=== PATIENT | female | born 1950 | race Caucasian/White ===

== ENCOUNTER 2020-01-10 11:29 | Outpatient (CLI) | payer MEDICARE, SELFPAY ==
--- NOTE | ~2020-01-10 | XR_ITS ---
XR lumbar spine 2-3V DATE: 01/10/2020 11:51 INDICATION: Chronic back pain. Radiculopathy. TECHNIQUE: AP, lateral, coned lateral lumbosacral views COMPARISON: 08/09/2017 lumbar spine FINDINGS: Diffuse osteopenia. Mild dextro scoliosis of the lumbar spine. No fracture or bone destruction of the lumbar spine is evident. The lumbar and included lower thoraci c pedicles are intact. There is severe degenerative disc disease at L5-S1. There is minimal anterolisthesis at L3-4; degenerative change at the apophyseal joints of the lumbar and lumbosacral spine. Sacroiliac joints are intact. Postoperative changes of left and right upper quadrants of the abdomen IMPRESSION: Osteopenia Severe degenerative disc disease at L5-S1 Degenerative changes at the apophyseal joints with minimal grade 1 anterolisthesis at L3-4 Reviewed, dictated and finalized at location A. IMPRESSION: Osteopenia Severe degenerative disc disease at L5-S1 Degenerative changes at the apophyseal joints with minimal grade 1 anterolisthe sis at L3-4
--- NOTE | ~2020-01-10 | XR_ITS ---
XR cervical spine 4-5V 01/10/2020 11:51 Indication: Cervical radiculopathy. Chronic neck pain. Procedure: 4 view cervical spine Comparison: 08/09/2017 Findings: There is mild disc narrowing at C5-6. No prevertebral soft tissue swelling. There is mild-m oderate multilevel uncinate and facet hypertrophy. Lung apices are normal. Odontoid process within no rmal limits. Impression: 1: Stable mild-moderate cervical spondylosis. Reviewed, dictated and finalized at location A. Impression: 1: Stable mild-moderate cervical spondylosis.
== END 2020-01-10 11:30 ==
PROVIDERS: PCP Internal Medicine; Visit Provider Pain Medicine Interventional Pain Medicine
DX: E66.9 Obesity, unspecified (principal); F17.210 Nicotine dependence, cigarettes, uncomplicated; B02.23 Postherpetic polyneuropathy; Z13.89 Encounter for screening for other disorder; Z79.891 Long term (current) use of opiate analgesic; M47.22 Other spondylosis with radiculopathy, cervical region; M51.36 Other intervertebral disc degeneration, lumbar region; M51.37 Other intervertebral disc degeneration, lumbosacral region; M85.88 Other specified disorders of bone density and structure, other site
CPT/HCPCS: 72050; 72100

== ENCOUNTER 2020-07-23 14:32 | Outpatient (CLI) | payer MEDICARE, SELFPAY ==
--- NOTE | ~2020-07-23 | XR_ITS ---
EXAMINATION: XR chest 2V 07/23/2020 15:52 INDICATION: Personal history of nicotine dependence PROCEDURE: 2 view chest COMPARISON: 04/26/2019 FINDINGS: The lungs are clear. Calcified granuloma right mid thorax. The cardiomediastinal silhouette is within normal limits. There are no pleural effusions. There is no pneumothorax suspected. IMPRESSION: 1: NO ACUTE CARDIOPULMONARY DISEASE. Reviewed, dictated and finalized at location A.
--- NOTE | 2020-07-23 14:43 | ECHO_ITS ---
Patient Info Name: Felicity Dunbar Age: 69 years : 1950 Gender: Female Ht: 67 in Wt: 221 lbs BSA: 2.22 m2 HR: 55 bpm BP: 133 / 84 mmHg Heart Rhythm: Sinus Rhythm Technical Quality: Good Exam Date: 07/23/2020 3:00 PM Exam Location: [facility] Pulmonary Patient Status: Outpatient Admit Date: 07/23/2020 Staff Ordering Physician: Indu Wilson NP-Seth Barrel Marker: Michael Crowe RDCS Attending Provider: Vahid Soria DO Referring Physician: Steve SMITH; Exam Type: CA echo doppler color flow Study Info Indications R60.9 - Edema, unspecified Complete two-dimensional, color flow and Doppler transthoracic echocardiogram is performed. Strain analysis performed. History/Risk Factors Edema. Summary 1. Complete two-dimensional, color flow and Doppler transthoracic echocardiogram is performed. 2. Strain analysis performed. 3. Left ventricular chamber dimension is normal. 4. Left ventricular systolic function is normal, estimated at 60-65%. 5. There is mildly increased left ventricular wall thickness. 6. Left ventricular septal wall motion is normal. 7. The left ventricular diastolic function is abnormal. 8. Global longitudinal strain is borderlinel at -17 %. 9. Right ventricular chamber dimension is mildly enlarged. 10. Left atrial chamber dimension is mildly enlarged. 11. Right atrial chamber dimension is moderately enlarged. 12. There is mild mitral valve regurgitation. 13. There is mild tricuspid valve regurgitation. 14. Mild pulmonary hypertension, estimated pulmonary arterial systolic pressure is 40 mmHg. Left Ventricle Left ventricular chamber dimension is normal. Left ventricular systolic function is normal, estimated at 60-65%. There is mildly increased left ventricular wall thickness. Left ventricular septal wall motion is normal. The left ventricular diastolic function is abnormal. Global longitudinal strain is borderlinel at -17 %. Right Ventricle Right ventricular chamber dimension is mildly enlarged. Right ventricular systolic function is normal. Left Atria Left atrial chamber dimension is mildly enlarged. Right Atria Right atrial chamber dimension is moderately enlarged. Atrial Septum Intact interatrial septum visualized by color flow imaging. Aortic Valve The aortic valve is trileaflet. There is mild aortic valve sclerosis. There is no aortic valve stenosis. There is trace aortic valve regurgitation. Pulmonic Valve The pulmonic valve is normal. There is no pulmonic valve stenosis. There is trace pulmonic regurgitation. Mitral Valve The mitral valve has calcified annulus. There is no mitral valve stenosis. There is mild mitral valve regurgitation. Tricuspid Valve The tricuspid valve leaflets are normal. There is no significant tricuspid valve stenosis. There is mild tricuspid valve regurgitation. Mild pulmonary hypertension, estimated pulmonary arterial systolic pressure is 40 mmHg. Pericardium/Pleural The pericardium appears normal. There is no pericardial effusion. Inferior Vena Cava Normal inferior vena cava with <50% collapse upon inspiration consistent with elevated right atrial pressure, 10 mmHg. Aorta The aortic root size at the sinus of Valsalva is normal. The prox ascending aorta size is normal. Left Ventricular Outflow Tract Name Value Normal -
== END 2020-07-23 14:33 | disposition home or self-care (01) ==
PROVIDERS: PCP Internal Medicine; Referring Provider Nurse Practitioner; Visit Provider Internal Medicine
DX: R60.9 Edema, unspecified (principal); Z87.891 Personal history of nicotine dependence; I08.3 Combined rheumatic disorders of mitral, aortic and tricuspid valves
CPT/HCPCS: 71046; 93306

== ENCOUNTER 2020-08-26 12:52 | Outpatient (CLI) | payer MEDICARE, SELFPAY ==
--- NOTE | ~2020-08-26 | XR_ITS ---
XR thoracic spine 3V 08/26/2020 13:44 Indication: Radiculopathy. Chronic back pain. Procedure: 3 views thoracic spine Comparison: 08/12/2018 Findings: There is accentuated thoracic kyphosis. Osteopenia. No acute fracture or traumatic malalign ment. There is mild-moderate thoracic spondylosis characterized by loss of disc height. Small ventral osteophytes noted at multiple levels. There are surgical changes in the epigastric region. There is atherosclerosis. There is evidence for chronic granulomatous disease. Impression: 1: Stable mild-moderate thoracic spondylosis. Reviewed, dictated and finalized at location A. Impression: 1: Stable mild-moderate thoracic spondylosis.
== END 2020-08-26 12:53 ==
PROVIDERS: PCP Internal Medicine; Visit Provider Pain Medicine Interventional Pain Medicine
DX: M54.15 Radiculopathy, thoracolumbar region (principal); M54.17 Radiculopathy, lumbosacral region; G89.4 Chronic pain syndrome; M47.894 Other spondylosis, thoracic region
CPT/HCPCS: 72072

== ENCOUNTER → 2021-01-09 13:28 | Outpatient (CLI) | payer MEDICARE, SELFPAY ==
--- NOTE | ~2021-01-09 | MR_ITS ---
EXAMINATION: MR lumbar spine wo [facility] EXAM DATE: 01/09/2021 14:14 INDICATION: Chronic pain syndrome, radiculopathy lumbosacral region chronic pain syndrome. TECHNIQUE: Multi-sequential, multiplanar MR images of the lumbar spine were obtained without contrast . Sagittal T1, T2, T2 fat saturation images. Axial T2 weighted images. There is no prior study for comparison. FINDINGS: There is mild lumbar dextroscoliosis. Moderate disc disease L5-S1, mild at the other lumbar levels. There is 3 mm retrolisthesis L5 on S1. The vertebral bodies are otherwise aligned. The conus medullaris terminates at the L1/2 level and has normal signal intensity and morphology. There are n o suspicious marrow signal abnormalities. Paraspinal soft tissue is unremarkable. Level by level evaluation: T12-L1: Disc does not extend beyond the endplate margin. Facet arthropathy: Mild. Neural foraminal stenosis: No stenosis. Central canal stenosis: No stenosis. L1-L2: Disc does not extend beyond the endplate margin. Facet arthropathy: Mild. Neural foraminal stenosis: No stenosis. Central canal stenosis: No stenosis. L2-L3: There is a mild diffuse disc bulge. Facet arthropathy: Mild to moderate. Neural foraminal stenosis: Mild right. Central canal stenosis: Mild. L3-L4: There is a mild to moderate diffuse disc bulge. Facet arthropathy: Moderate . Ligamentum flavum enlargement. Neural foraminal stenosis: Mild bilateral. Central canal stenosis: Mild to moderate. L4-L5: There is a moderate diffuse disc bulge. Facet arthropathy: Mild to moderate. Neural foraminal stenosis: Mild to moderate bilateral. Central canal stenosis: Mild to moderate. L5-S1: There is a moderate diffuse disc bulge. Facet arthropathy: Mild to moderate. Neural foraminal stenosis: Mild to moderate right, mild left. Central canal stenosis: Mild. IMPRESSION: 1. L5-S1 grade 1 retrolisthesis, moderate disc disease. 2. Otherwise mild to moderate spondylosis as above. Reviewed, dictated and finalized at location B. BUILDER APPRENTICE
== END ==
PROVIDERS: PCP Internal Medicine; Visit Provider Pain Medicine Interventional Pain Medicine
DX: G89.4 Chronic pain syndrome (principal); M47.27 Other spondylosis with radiculopathy, lumbosacral region
CPT/HCPCS: 72148

== ENCOUNTER → 2021-03-10 15:05 | Outpatient (CLI) | payer MEDICARE, SELFPAY ==
--- NOTE | ~2021-03-10 | XR_ITS ---
EXAMINATION: XR lumbar spine 2-3V DATE: 03/10/2021 15:25 INDICATION: Chronic low back pain. TECHNIQUE: 3 views of lumbar spine were obtained. COMPARISON: Lumbar spine radiograph 01/10/2020, MRI 01/09/2021 FINDINGS: There is 8 degrees dextrocurvature of lumbar spine. There is 3 mm retrolisthesis of L5 on S 1. Vertebral body heights are normal. There is severely decreased disc height at L5-S1. There is mult ilevel moderate to severe facet joint osteoarthritis. There are surgical clips in the abdomen. IMPRESSION: 1. Severe lumbar spondylosis. Reviewed, dictated and finalized at location B.
== END ==
DX: G89.4 Chronic pain syndrome (principal); M54.17 Radiculopathy, lumbosacral region; M47.896 Other spondylosis, lumbar region
CPT/HCPCS: 72100

== ENCOUNTER 2021-03-20 15:38 | Emergency (ER) | payer MEDICARE, SELFPAY ==
[2021-03-20 16:09] VITALS: BP 145/99; PULSE 89; RESP 19; TEMP 37.2; O2SAT 98
[2021-03-20 16:43] VITALS: BP 138/97; PULSE 85; RESP 22; O2SAT 96
--- NOTE | 2021-03-20 17:08 | PC.NURSE ---
1703-Pt at Intake desk stating I'm going to call my and have him come pick me up,I can't sit up in this chair any longer. pt wheeled self out of ED in wheel chair without difficulty.
== END 2021-03-20 17:08 | disposition left against medical advice (07) ==
PROVIDERS: PCP Internal Medicine
DX: M25.551 Pain in right hip (principal)
CPT/HCPCS: 99199

== ENCOUNTER 2021-03-21 14:34 | Outpatient (CLI) | payer MEDICARE, SELFPAY ==
--- NOTE | ~2021-03-21 | CT_ITS ---
EXAMINATION: CT pelvis wo con DATE: 03/21/2021 14:58 INDICATION: Low back pain TECHNIQUE: Computed tomography (CT) of the pelvis was performed without intravenous contrast. The dos e-length product (DLP) was 810.89 mGy-cm. Automated exposure control and iterative reconstruction jay hnique were employed. COMPARISON: None FINDINGS: There is moderate to severe spondylosis at L5-S1. There are no pathologically enlarged pelv ic lymph nodes. A bowel surgical anastomosis is noted in the left lower quadrant. There are no dilate d loops of bowel. No free intraperitoneal gas is identified. The appendix is normal. There are phlebo liths in the pelvis. IMPRESSION: 1. Moderate to severe spondylosis at L5-S1 without additional CT correlate for patient's symptoms. Reviewed, dictated and finalized at location A.
--- NOTE | ~2021-03-21 | CT_ITS ---
EXAMINATION: CT lumbar spine wo con EXAM DATE: 03/21/2021 14:58 INDICATION: Low back pain. TECHNIQUE: Spiral CT of the lumbar spine was performed without contrast. Axial, coronal and sagittal images lumbar spine were reviewed. The dose-length product (DLP) for this examination was 1211.02 m Gy-cm. The exposure was tailored according to patient size (auto mA exposure control), and iterativ e reconstruction (ASIR) was used as additional dose reduction technique. Correlation is made to MR adelita anna spine 01/09/2021. FINDINGS: Mild lumbar dextroscoliosis. There are no acute fractures identified. Gastroesophageal surg ical changes and cholecystectomy clips. There is moderate to severe loss of the L5-S1 disc height. Mi ld disc disease at the other levels. No spondylolysis. There is 2 mm retrolisthesis L5 on S1. The tushar tebral bodies are otherwise aligned in the AP dimension. Vertebral body heights are maintained. Level by level evaluation: T12-L1: There is a mild diffuse disc bulge. Facet arthropathy: None. Neural foraminal stenosis: No stenosis. Central canal stenosis: No stenosis. L1-L2: There is a mild diffuse disc bulge. Facet arthropathy: Mild. Neural foraminal stenosis: No stenosis. Central canal stenosis: No stenosis. L2-L3: There is a mild to moderate diffuse disc bulge. Facet arthropathy: Mild to moderate. Neural foraminal stenosis: Mild right. Central canal stenosis: Mild. L3-L4: There is a mild to moderate diffuse disc bulge. Facet arthropathy: Moderate . Ligamentum flavum enlargement. Neural foraminal stenosis: Mild bilateral. Central canal stenosis: Mild to moderate. L4-L5: There is a moderate diffuse disc bulge. Facet arthropathy: Mild to moderate. Neural foraminal stenosis: Mild bilateral. Central canal stenosis: Mild to moderate. L5-S1: There is a moderate diffuse disc bulge. Facet arthropathy: Mild to moderate. Neural foraminal stenosis: Mild right. Central canal stenosis: Mild. IMPRESSION: 1. L5-S1 moderate to severe disc disease, 2 mm retrolisthesis. 2. Otherwise overall mild to moderate lumbar spondylosis. 3. No acute findings. Reviewed, dictated and finalized at location A.
== END 2021-03-21 14:35 | disposition home or self-care (01) ==
PROVIDERS: PCP Internal Medicine; Referring Provider Pain Medicine Interventional Pain Medicine
DX: M47.896 Other spondylosis, lumbar region (principal); M51.36 Other intervertebral disc degeneration, lumbar region
CPT/HCPCS: 72131; 72192

== ENCOUNTER 2021-03-23 09:37 | Emergency (ER) | payer MEDICARE, SELFPAY ==
[2021-03-23 09:21] VITALS: BP 155/72; PULSE 85; RESP 20; TEMP 36.9; O2SAT 97
--- NOTE | 2021-03-23 09:45 | PC.NURSE ---
Arrives via EMS, c/o worsening R side sciatic pain, has been taking [place] 7.5mg but they don't help , denies new trauma or falls. Follows pain specialist and will have MRI scheduled by PCP
[2021-03-23] MEDS: diazePAM INJ (*CRX) 10 MG/2 ML SYRINGE 2.5 MG IV PUSH (10:55)
[2021-03-23] MEDS: SODIUM CHLORIDE 0.9% IV 1,000 ML 999 ML IV CONT (10:55)
[2021-03-23] MEDS: MORPHINE SULFATE (*CRX) 4 MG/ML INJ IV PUSH (10:56)
[2021-03-23 11:03] LABS: Basophils Absolute Auto 0.1 K/mm3 (0.0-0.1); Basophils Percent Auto 0.9 % (0.2-1.2); Eosinophils Absolute Auto 0.1 K/mm3 (0-0.3); Eosinophils Percent Auto 1.9 % (0-4.4); Hematocrit 43.4 % (37.0-47.0); Hemoglobin 14.4 g/dL (12.0-15.0); Immature Granulocyte Absolute 0.01 K/mm3 (0.00-0.031); Immature Granulocyte Percent A 0.1 % (0-0.5); Lymphocytes Absolute Auto 2.09 K/mm3 (0.9-3.2); Lymphocytes Percent Auto 30.4 % (18.3-44.2); Mean Corpuscular HGB Conc 33.2 g/dl (32-36); Mean Corpuscular Hemoglobin 32.7 pg (26-34); Mean Corpuscular Volume 98.6 fl (80-100); Mean Platelet Volume 11.3 fl (7.4-10.4); Monocytes Absolute Auto 0.8 K/mm3 (0.1-0.6); Monocytes Percent Auto 11.9 % (2.6-8.5); Neutrophils Absolute Auto 3.8 K/mm3 (1.3-6.7); Neutrophils Percent Auto 54.8 % (45.5-73.1); Platelet Count Result 206 k/mm3 (150-375); Red Cell Distribution Width 13.7 % (11.5-14.5); White Blood Count 6.9 K/mm3 (4.5-10.0)
--- NOTE | 2021-03-23 11:08 | ED.GENADULT ---
HPI - General Adult General Chief complaint: Back Pain/Injury Stated complaint: back pain Time Seen by Provider: 03/23/21 10:22 Source: patient, family, RN notes reviewed and old records reviewed Mode of arrival: ambulatory Limitations: no limitations History of Present Illness HPI narrative: Patient is a 70-year-old female who presents per private vehicle for evaluation of severe low back pain noting pain over the SI region that radiates down the leg had seen neurosurgery at [place] prior week had MRI done at [facility] and also has CT of the abdomen and pelvis. Patient also has seen pain management and is taking hydrocodone Percocet muscle relaxers antianxiolytics and had a nerve block none of which are helping. Patient notes that the pain is severe in nature nothing is made it better and has worsened over the course of the last 2 months. Patient denies injury or trauma. Patient denies any recent illness bladder or bowel incontinence or retention or any loss of feeling or function in the extremities. Patient notes a sharp burning pain from the right buttock down into the right foot Related Data Home Medications Medication Instructions Recorded Confirmed dicyclomine 20 mg tablet 20 mg PO QID 09/22/19 10/11/20 hydrocodone 7.5 mg-acetaminophen 1 tablet PO Q8H PRN 09/22/19 10/11/20 325 mg tablet meloxicam 15 mg tablet 15 mg PO DAILY 04/02/20 10/11/20 biotin 5 mg capsule 5 mg PO DAILY 06/26/20 10/11/20 calcium carbonate 215 mg calcium 215 mg PO QID 06/26/20 10/11/20 (500 mg) chewable tablet multivitamin 1 cap PO DAILY 06/26/20 10/11/20 Allergies Allergy/AdvReac Type Severity Reaction Status Date / Time No Known Allergies Allergy Unverified 03/23/21 09:28 Review of Systems Review of Systems: All systems reviewed & are unremarkable except as noted in HPI and below PMFSH Past Medical History Medical History (Updated 03/23/21 @ 13:00 by Michael Kendall PA-C) Chronic back pain Screening for osteoporosis Surgical History Surgical History History of bariatric surgery Family History Family History Sibling Cerebrovascular accident Patient's brother is Acute myocardial infarction Mother Carcinoma of colon Patient's mother is Father Family history of lung cancer Patient's father is Other Depression Family history of arthritis Family history of malignant neoplasm Hypertension Social History Social History Smoking status: Current every day smoker Alcohol intake: never Exam Narrative: Exam Narrative: GENERAL: Well-appearing, obese, uncomfortable and in no acute distress. HEAD: Normocephalic, atraumatic. EYES: PERRLA and EOMI. ENT: Nares clear, no rhinorrhea or epistaxis. Mucous membranes moist. NECK: Supple. No adenopathy or masses. CHEST: Clear to auscultation. No respiratory distress. No wheezes rales or rhonchi HEART: Regular rate and rhythm. No murmur heard. Normal peripheral pulses. ABDOMEN: Soft, nontender, nondistended EXTREMITIES: Normal range of motion. No edema. No midline lumbar tenderness tenderness over the right SI region no rash or deformities SKIN: Warm, dry, no rash. NEURO: No focal deficits. Alert and oriented x3. Motor and sensory intact and symmetrical in the extremity. Cranial nerves II through XII grossly intact PSYCH: Normal mood and affect. Course Course Emergency Course: Patient was medicated with improvement will be discharged with follow-up with neurosurgery pain management and primary care as planned patient sees her primary care on Wednesday. Patient without any high risk changes in her evaluation her MRI and CT imaging were reviewed. Patient will follow with her specialist and primary care ABCs and vital signs intact and stable Consultations Consultation #
--- NOTE | 2021-03-23 11:11 | PC.NURSE ---
Pt ambulated to BR using walker, slow gait, pt crying and stating my right leg is locking up . Safely assisted back to cart
[2021-03-23 11:23] LABS: Add Urine Microscopic? NO; Appearance Urine Clear (Clear); Bilirubin Urine Negative (Negative); Blood Urine Negative (Negative); Color Urine Yellow (Yellow); Glucose Urine UA Negative (Negative); Ketones Urine Negative (Negative); Leukocyte Esterase Ur Negative LEU/UL (Negative); Nitrate Urine Negative (Negative); Protein Urine Negative (Negative); Specific Grav Ur 1.008 (1.001-1.035); Urobilinogen Urine Negative mg/dL (<2.0)
[2021-03-23] MEDS: LIDOCAINE 5% PATCH 1 PATCH TRANSDERM (11:47)
[2021-03-23] MEDS: DEXAMETHASONE SOD PHOS INJ 4 MG/ML VIAL 10 MG IV PUSH (11:47)
[2021-03-23 11:50] VITALS: BP 137/77; PULSE 79; RESP 20; O2SAT 99
[2021-03-23 11:50] LABS: Erythrocyte Sedimentation Rate 18 mm/hr (0-20)
[2021-03-23 11:56] LABS: Alanine Aminotransferase 13 U/L (4-35); Albumin Level 3.8 g/dL (3.5-5.1); Alkaline Phosphatase 88 U/L (38-126); Anion Gap 5 mmol/L (8-16); Aspartate Amino Transferase 26 U/L (14-36); Bilirubin,Total 0.4 mg/dL (0.2-1.3); Blood Urea Nitrogen 17 mg/dL (7-17); CRP 0.9 mg/dL (<1.0); Calcium 8.9 mg/dL (8.4-10.2); Carbon Dioxide 27 mmol/L (22-30); Chloride 109 mmol/L (98-107); Estimated CRCL calculation 88 ml/min; Estimated Glomerular Filt Rate > 60; Glucose 98 mg/dL (65-105); Potassium 3.8 mmol/L (3.4-5.0); Sodium 141 mmol/L (137-145)
--- NOTE | 2021-03-23 12:00 | PC.NURSE ---
Pt resting on cart lying on left side, calm, no longer crying, non-labored respirations
--- NOTE | 2021-03-23 12:50 | PC.NURSE ---
ED PA at bedside for reassessment. Pt has been asleep, non-labored respirations
[2021-03-23 13:14] VITALS: BP 156/68; PULSE 65; RESP 20; O2SAT 98
== END 2021-03-23 13:24 | disposition home or self-care (01) ==
PROVIDERS: Emergency Medicine Emergency Medical Services; Emergency Provider Emergency Medicine; PCP Internal Medicine
DX: M54.5 Low back pain (principal); G89.29 Other chronic pain; Z98.84 Bariatric surgery status; F17.200 Nicotine dependence, unspecified, uncomplicated
CPT/HCPCS: 36415; 80053; 81003; 85025; 85652; 86140; 96361; 96374; 96375; 99284; A9270; J1100; J2270; J3360; J7030

== ENCOUNTER 2021-08-02 08:41 | Outpatient (CLI) | payer MEDICARE, SELFPAY ==
--- NOTE | ~2021-08-02 | US_ITS ---
US abdomen complete EXAMINATION: US Abdomen Complete INDICATION: Left-sided abdominal pain PROCEDURE: Realtime High Resolution abdomen ultrasound. COMPARISON: No prior studies for comparison FINDINGS: Gallbladder is surgically absent. Common bile duct measures 3 mm. Liver echotexture is increased, consistent with fatty infiltration.. Pancreas within normal limits. Pancreatic tail is obscured by bowel gas. Spleen is unremarkeable. Renal echotexture is within norm al limits bilaterally without hydronephrosis, contour deforming mass or renal stone. Right kidney austin sures 10.1 cm. Left kidney measures 9.4 cm. Visualized aspects of the aorta and IVC are within normal limits. Portal vein is patent. No sonograph ic Bailey's sign indicated by the technologist. IMPRESSION: 1: Hepatic steatosis. Reviewed, dictated and finalized at location A. IMPRESSION: 1: Hepatic steatosis.
--- NOTE | ~2021-08-02 | US_ITS ---
EXAMINATION: US carotid duplex BI DATE: 08/02/2021 09:42 INDICATION: Dizziness TECHNIQUE: Grayscale, color Doppler, and pulsed Doppler images of the cervical carotid arteries were obtained. The degree of vessel stenosis is placed in one of the following categories: normal, <50%, 5 0-69%, >=70% but less than near-occlusion, near-occlusion, or total occlusion. Note that percent sten osis relative to normal distal artery lumen diameter is indirectly measured from velocity measurement s as described by Ayan, et al. Radiology 2003; 229:340-346. Notes: Normal: Peak systolic velocity <125 centimeters/sec and no plaque <50%. Peak systolic velocity <125 ( EDV <40; ICA/CCA PSV ratio <2.0; used these factors only a tandem lesions or low cardiac output or co ntralateral disease) 50-69 %: PSV 125-230 (EDV 40-100; ratio 2-4) >= 70% but less than near occlusion: PSV greater than 230 (EDV > 100; ratio> 4.0) Near Occlusion: PSV that is variable; markedly narrowed lumen Occlusion: Absent flow on color/spectral Doppler and no lumen on gordon scale. COMPARISON: None. FINDINGS: RIGHT: The right common carotid artery (CCA) peak systolic velocity (PSV) is 93 cm/s. The right internal car otid artery (ICA) PSV is 114 cm/s. The right ICA end-diastolic velocity (EDV) is 40 cm/s. The right I CA/CCA PSV ratio is 1.2. The external carotid artery (ECA) PSV is 95 cm/s. There is antegrade flow in the right vertebral artery. LEFT: The left CCA PSV is 79 cm/s. The left ICA PSV is 29 cm/s. The left ICA EDV is 49 cm/s. The left ICA/C CA PSV ratio is 1.6. The ECA PSV is 93 cm/s. There is antegrade flow in the left vertebral artery. IMPRESSION: 1. Less than 50% stenosis in the right internal carotid artery by sonographic criteria. 2. 50-69% stenosis in the left internal carotid artery by sonographic criteria. Reviewed, dictated and finalized at location A. IMPRESSION: 1. Less than 50% stenosis in the right internal carotid artery by sonographic c liameria. 2. 50-69% stenosis in the left internal carotid artery by sonographic criteria.
== END 2021-08-02 08:42 | disposition home or self-care (01) ==
LOC: ANHIMG 08:43
PROVIDERS: PCP Internal Medicine; Visit Provider Internal Medicine
DX: K76.0 Fatty (change of) liver, not elsewhere classified (principal); I65.23 Occlusion and stenosis of bilateral carotid arteries
CPT/HCPCS: 76700; 93880

== ENCOUNTER 2021-11-25 00:28 | Day surgery (SDC) | payer MEDICARE, SELFPAY ==
[2021-11-14 13:54] VITALS: BMI 32.3
[2021-11-25 09:52] VITALS: BP 148/70; PULSE 94; RESP 20; TEMP 36.1; O2SAT 97
[2021-11-25] MEDS: LACTATED RINGERS 1,000 ML 150 ML IV CONT (09:54)
--- NOTE | 2021-11-25 10:24 | PM.HPGS ---
History of Present Illness History of Present Illness Consent: Risks, benefits, and alternatives have been discussed and questions answered. Patient agrees to proceed with procedure. Chief complaint: epigastric pain, GERD Narrative: Felicity Dunbar is a 71 year old female with gastric bypass for bariatric purpose years ago that required revision because complications. 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 Also 2009 had duodenal polyp removed with follow-up EGD negative. Review of Systems Constitutional: Constitutional: Denies headache(s) and Denies weakness Eyes: Eyes: Denies blurry vision ENT: Reports Normal hearing present, Denies headache(s) and Denies neck pain Cardiovascular: Cardiovascular: Denies chest pain and Denies dyspnea Respiratory: Respiratory: Denies dyspnea Gastrointestinal: Gastrointestinal: Reports no additional gastrointestinal complaints Genitourinary: Genitourinary: Denies dysuria Musculoskeletal: Musculoskeletal: Denies neck pain Integumentary/Breasts: Skin/Breast: Denies dry skin Neurologic: Reports Normal hearing present, Denies headache(s) and Denies weakness Psychiatric: Psychiatric: Denies anxiety Endocrine: Endocrine: Denies change in body appearance Hematologic/Lymphatic: Hematologic/Lymphatic: Denies easy bleeding Allergic/Immunologic: Allergic/Immunologic: Denies urticaria PMFSH Past Medical History Medical History (Updated 11/05/21 @ 11:48 by Vahid Soria DO) Abdominal cramping Chronic back pain Epigastric pain Family history of malignant neoplasm of colon in mother Screening for osteoporosis Surgical History Surgical History (Updated 11/25/21 @ 10:26 by Carlito Dupont MD) Gastric bypass status for obesity History of bariatric surgery Family History Family History Sibling Cerebrovascular accident Patient's brother is Acute myocardial infarction Mother Carcinoma of colon Patient's mother is Father Family history of lung cancer Patient's father is Other Depression Family history of arthritis Family history of malignant neoplasm Hypertension Social History Social History Smoking packs per day: 1 Smoking cigarettes per day: 20.0 Years smoked: 50 Smoking pack-years: 50.00 Smoking status: Current every day smoker Tobacco type: cigarettes Second hand tobacco smoke exposure: Yes Alcohol intake: never Substance use: never Substance use type: does not use Living arrangements: with family Spiritual care concerns: No Meds Home Medications and Allergies Home Medications Medication Instructions Recorded Confirmed Type blood glucose control high and low #1 each 10/19/19 09/24/21 Rx solution multivitamin 1 cap PO DAILY 06/26/20 11/25/21 History blood-glucose meter #1 each 10/02/20 09/24/21 Rx cyanocobalamin (vitamin B-12) 1,000 mcg IM .biweekly #10 ml 10/11/20 11/14/21 Rx 1,000 mcg/mL injection solution blood sugar diagnostic See Rx Instructions .ROUTE 01/28/21 09/24/21 Rx .COMPLEX #200 strip metoprolol succinate 25 mg See Rx Instructions .ROUTE 05/23/21 11/14/21 Rx tablet,extended release 24 hr .COMPLEX #90 tablet alcohol swabs 1 pad TOPICAL BID #200 each 06/09/21 09/24/21 Rx omeprazole 40 mg capsule,delayed See Rx Instructions .ROUTE 06/16/21 11/14/21 Rx release .COMPLEX #90 cap pregabalin 100 mg capsule 100 mg PO TID #90 cap 07/16/21 11/14/21 Rx syringe with needle, safety 3 mL #50 each 08/05/21 09/24/21 Rx 22 gauge x 1 calcium carbonate 215 mg calcium 215 mg PO TID tablet 09/10/21 11/14/21 History (500 mg) chewable tablet dicyclomine 20 mg tablet 20 mg PO QID PRN 09/10/21 11/14/21 History turmeric 400 mg capsule 800 mg PO DAILY cap 09/10/21 11/14/21 History triamterene 37.5 See Rx Instructions .ROUTE 09/16/21 11/14/21 Rx
--- NOTE | 2021-11-25 10:25 | WPDANESEPPF ---
Anes - Initial Pre Proc Eval Procedure: Operation Date: 11/25/21 11:15 Proposed Procedures p Esophagogastroduodenoscopy - Carlito Dupont MD Date/Time: 11/25/21 10:25 Surgeon: Carlito Dupont MD Pre Op Diagnosis: epigastric pain, GERD Patient Data Age: 71 Gender: F Height: 1.7 m Weight: 97.8 kg Last Vital Signs Temp 97.0 F L 11/25/21 09:52 Pulse 94 11/25/21 09:52 Resp 20 11/25/21 09:52 BP 148/70 H 11/25/21 09:52 Pulse Ox 97 11/25/21 09:52 Allergies Allergy/AdvReac Type Severity Reaction Status Date / Time No Known Allergies Allergy Verified 11/25/21 09:50 Home Medications Medication Instructions Recorded Confirmed Type blood glucose control high and low #1 each 10/19/19 09/24/21 Rx solution multivitamin 1 cap PO DAILY 06/26/20 11/25/21 History blood-glucose meter #1 each 10/02/20 09/24/21 Rx cyanocobalamin (vitamin B-12) 1,000 mcg IM .biweekly #10 ml 10/11/20 11/14/21 Rx 1,000 mcg/mL injection solution blood sugar diagnostic See Rx Instructions .ROUTE 01/28/21 09/24/21 Rx .COMPLEX #200 strip metoprolol succinate 25 mg See Rx Instructions .ROUTE 05/23/21 11/14/21 Rx tablet,extended release 24 hr .COMPLEX #90 tablet alcohol swabs 1 pad TOPICAL BID #200 each 06/09/21 09/24/21 Rx omeprazole 40 mg capsule,delayed See Rx Instructions .ROUTE 06/16/21 11/14/21 Rx release .COMPLEX #90 cap pregabalin 100 mg capsule 100 mg PO TID #90 cap 07/16/21 11/14/21 Rx syringe with needle, safety 3 mL #50 each 08/05/21 09/24/21 Rx 22 gauge x 1 calcium carbonate 215 mg calcium 215 mg PO TID tablet 09/10/21 11/14/21 History (500 mg) chewable tablet dicyclomine 20 mg tablet 20 mg PO QID PRN 09/10/21 11/14/21 History turmeric 400 mg capsule 800 mg PO DAILY cap 09/10/21 11/14/21 History triamterene 37.5 See Rx Instructions .ROUTE 09/16/21 11/14/21 Rx mg-hydrochlorothiazide 25 mg tablet .COMPLEX #90 tablet lancets See Rx Instructions .ROUTE 09/30/21 Rx .COMPLEX #200 ea alprazolam 1 mg tablet 1 mg PO TID PRN #90 tablet 10/03/21 11/14/21 Rx furosemide 20 mg tablet 20 mg PO QAM PRN #30 tablet 11/05/21 11/14/21 Rx hydrocodone-acetaminophen 1 tablet PO Q6H PRN 11/14/21 11/14/21 History Patient hx anesthesia problems: none Family hx anesthesia problems: none Results Review: All pre-operative results and documents have been reviewed as part of the pre-operative evaluation. [facility] Past Medical History Medical History (Updated 11/05/21 @ 11:48 by Vahid Soria DO) Abdominal cramping Chronic back pain Epigastric pain Family history of malignant neoplasm of colon in mother Screening for osteoporosis Surgical History Surgical History (Updated 11/25/21 @ 10:26 by Carlito Dupont MD) Gastric bypass status for obesity History of bariatric surgery Family History Family History Sibling Cerebrovascular accident Patient's brother is Acute myocardial infarction Mother Carcinoma of colon Patient's mother is Father Family history of lung cancer Patient's father is Other Depression Family history of arthritis Family history of malignant neoplasm Hypertension Social History Social History Smoking packs per day: 1 Smoking cigarettes per day: 20.0 Years smoked: 50 Smoking pack-years: 50.00 Smoking status: Current every day smoker Tobacco type: cigarettes Second hand tobacco smoke exposure: Yes Alcohol intake: never Substance use: never Substance use type: does not use Living arrangements: with family Spiritual care concerns: No Anes - Eval Final PreProcedure Day of Procedure 11/25/21 10:25 Patient weight: obese Heart: regular rate and rhythm Lungs: clear to auscultation Airway: Mallampati scale class II Neurological: alert and oriented Last oral intake: >
[2021-11-25] MEDS: fentaNYL CITRATE INJ (*CRX) 100 MCG/2 ML VIAL 50 MCG IV PUSH (10:27)
[2021-11-25 11:05] VITALS: BP 112/53; PULSE 81; RESP 17; O2SAT 98
[2021-11-25 11:15] VITALS: BP 116/64; PULSE 74; RESP 19; O2SAT 97
[2021-11-25 11:25] VITALS: BP 93/73; PULSE 71; RESP 15; O2SAT 95
== END 2021-11-25 11:35 | disposition home or self-care (01) ==
PROVIDERS: PCP Internal Medicine; Visit Provider Internal Medicine Gastroenterology
PROC: 0DJ08ZZ Inspection of Upper Intestinal Tract, Via Natural or Artificial Opening Endoscopic (ICD-10-PCS; CPT 43235; principal; 2021-11-25 11:15)
DX: K21.9 Gastro-esophageal reflux disease without esophagitis (principal); Z98.84 Bariatric surgery status; K29.50 Unspecified chronic gastritis without bleeding; F17.210 Nicotine dependence, cigarettes, uncomplicated; E66.9 Obesity, unspecified; Z68.33 Body mass index [BMI] 33.0-33.9, adult
CPT/HCPCS: 43239; 88305; J2704; J3010; J7120

== ENCOUNTER 2021-12-15 10:30 | Outpatient (RCR) | payer MEDICARE, SELFPAY ==
--- NOTE | 2021-11-26 11:57 | PTOPEVAL ---
PHYSICAL THERAPY EVALUATION AND PLAN OF CARE 11-26-21 Thank you for referring Felicity Dunbar to [facility] for the diagnosis of B LE lymphedema. Felicity is scheduled to be seen for therapy? 3 x/week for 5 weeks. Please review, sign, date and return this plan of care LENORE. I agree with and certify that the following plan of care is medically necessary. Referring Physician Date Attending Provider: Vahid Soria, DO Document 11/26/21 10:40 EVY (Rec: 11/26/21 11:56 EVY [id number]) Past Medical History Source of Past Medical History Recalled from Previous Visit, Confirmed with Patient/Family Neurological History Hx Other Neurological Disorders Yes: neuropathy in R and L LE' s Cardiovascular History Hx Hypertension Yes: no longer taking meds, take at home and BP was low Respiratory History Hx Other Respiratory Disorders Yes: smoke Gastrointestinal History Hx Cholecystectomy Yes Hx Diverticulosis Yes Hx Gastric Bypass Surgery Yes: required revision x3; scope done yesterday due to pain-scar tissue Hx Hernia Yes: surgical repair Hx Polyps Yes Genitourinary History Hx Other Genitourinary Disorders Yes: had some constipation due to med, recent increase urgency bowels Musculoskeletal History Hx Arthritis Yes: B knee pain, OA back Hx Back Pain Yes: recent chiropractor care for back pain; lumbar bulge disc-pain mgt Hx Crutches or Walker Use Yes: walker Query Text:If Yes, Enter Crutches, Walker, or Both in the Comment Hx Other Musculoskeletal Disorders Yes: neuropathy of legs; weakness since December 2020 Hematological History Hx Hematological Disorders No Significant History Endocrine History Hx Other Endocrine Disorders Yes: low blood sugar- monitor HEENT History Hx Cataracts Yes Integumentary History Hx Shingles Yes Reproductive History Hx Tubal Ligation Yes: 1971 Psychosocial History Hx Anxiety Yes Pain History Has Past Pain Affected Your Daily Life Yes History of Long-Term Prescription Pain Yes Medication Use (Opiates) Anesthesia History Hx Anesthesia Reactions No Significant History Evaluation Information Problem Diagnosis B LE lymphedema Onset Oct 2021 Prior Level of Function Activity Level (Last 3 Months) Occupation retired Indoor/Home Mobility Independent Cooking Yes Cleaning
--- NOTE | 2021-12-15 13:09 | PTOPEVAL ---
PHYSICAL THERAPY DISCHARGE 12-15-21 Refer to the clinical summary below. Discharge PT services. Thank you for referring Felicity Dunbar to [facility], for the diagnosis of B LE lymphedema. Please review, sign, date and return this Discharge report LENORE. I agree with and certify that the following plan of care is medically necessary. Referring Physician Date Attending Provider: Vahid Soria, Document 12/15/21 12:57 EVY (Rec: 12/15/21 13:09 EVY [id number]) Assessment Status Discharge - Pt Not Present Pt received treatment with CLIENT TECHNICAL SPECIALIST today; I saw pt and talked with her briefly- she stated she has her compression garments and is ready for d/c; Exercise Description supine: SLR ,Abduction R and Query Text:Record Sets, Reps, L x 10 reps each; Resistance, and Position sit L & R knee extension x 15 each . pt able to transfer indep supine/sit; Lymphedema Therapy LE Circumferential Measurement Right LE Lymphedema Side Right Metatarsal Heads (cm) 21 Figure 8 of Ankle (cm) 49 8 cm From Bottom of Foot (cm) 23.5 12 cm From Bottom of Foot (cm) 21 16 cm From Bottom of Foot (cm) 23.5 20 cm From Bottom of Foot (cm) 28 24 cm From Bottom of Foot (cm) 35 28 cm From Bottom of Foot (cm) 38 32 cm From Bottom of Foot (cm) 41 36 cm From Bottom of Foot (cm) 43 40 cm From Bottom of Foot (cm) 41 44 cm From Bottom of Foot (cm) 40 48 cm From Bottom of Foot (cm) 45.5 52 cm From Bottom of Foot (cm) 50 56 cm From Bottom of Foot (cm) 50 60 cm From Bottom of Foot (cm) 53 64 cm From Bottom of Foot (cm) 56 Total Left Lower Extremity Right LE: 658.5 cm Circumferential Measurement (cm) Additional Lower Extremity decreased by 61.5 cm compared Circumferential Measurement Comments with the initial evaluation Left LE Lymphedema Side Left Metatarsal Heads (cm) 20.5 Figure 8 of Ankle (cm) 47.5 8 cm From Bottom of Foot (cm) 21.5 12 cm From Bottom of Foot (cm) 21 16 cm From Bottom of Foot (cm) 23.4 20 cm From Bottom of Foot (cm) 28 24 cm From Bottom of Foot (cm) 32 28 cm From Bottom of Foot (cm) 37.8 32 cm From Bottom of Foot (cm) 40 36 cm From Bottom of Foot (cm) 44 40 cm From Bottom of Foot (cm) 44 44 cm From Bottom of Foot (cm) 43.5 48 cm From Bottom of Foot (cm) 51 52 cm From Bottom of Foot (cm) 54 56 cm From Bottom of Foot (cm) 52 60 cm From Bottom of Foot (cm) 52.5 64 cm From Bottom of Foot (cm) 53 Total Left Lower Extremity Left LE: 665.7 cm Circumferential Measurement (cm) Additional Lower Extremity
== END 2022-02-09 11:30 | disposition home or self-care (01) ==
LOC: ANHPT 10:30
PROVIDERS: PCP Internal Medicine; Visit Provider Internal Medicine
DX: I89.0 Lymphedema, not elsewhere classified (principal)
CPT/HCPCS: 29581; 97140; 97161

== ENCOUNTER 2022-01-03 13:37 | Emergency (ER) | payer MEDICARE, SELFPAY ==
--- NOTE | ~2022-01-03 | XR_ITS ---
EXAMINATION: XR knee RT 3V DATE: 01/03/2022 14:06 INDICATION: Right knee injury and swelling. TECHNIQUE: 3 views of right knee were obtained. COMPARISON: Right knee radiographs 05/16/2018 FINDINGS: Bone alignment is normal. No fracture. There is mild tricompartmental osteoarthritis. There is chondrocalcinosis of the menisci. There is a moderate-sized knee joint effusion. IMPRESSION: 1. Mild right knee osteoarthritis. 2. Moderate-sized right knee joint effusion. Reviewed, dictated and finalized at location A. SCREW WORKER
--- NOTE | ~2022-01-03 | XR_ITS ---
EXAMINATION: XR hip RT 2V w AP pelvis DATE: 01/03/2022 14:06 INDICATION: Right hip injury. TECHNIQUE: An anteroposterior view of the pelvis and 2 views of right hip were obtained. COMPARISON: None. FINDINGS: Bone alignment is normal. No fracture. There is mild osteoarthritis of the hips. IMPRESSION: 1. Mild osteoarthritis of the hips. Reviewed, dictated and finalized at location A. MBLY DEPARTMENT SUPERVISOR
[2022-01-03 13:36] VITALS: BP 142/84; PULSE 96; RESP 17; TEMP 36.2; O2SAT 100
[2022-01-03] MEDS: HYDROmorphone HCL INJ (*CRX) 1 MG/ML SYR IV PUSH (14:12)
[2022-01-03] MEDS: ONDANSETRON INJ 4 MG/2 ML VIAL IV PUSH (14:12)
[2022-01-03 14:31] VITALS: BP 115/83; PULSE 97; RESP 18; O2SAT 96
--- NOTE | 2022-01-03 14:46 | PC.NURSE ---
pt tolerated knee immobilizer, refused crutches at this time
--- NOTE | 2022-01-03 15:10 | ED.LOWEXIN ---
HPI - Extremity Injury (Lower) General Chief Complaint: Extremity Injury, Lower Stated Complaint: fall/ right knee pain Time Seen by Provider: 01/03/22 13:37 Source: patient and RN notes reviewed Mode of arrival: ambulatory Limitations: no limitations History of Present Illness HPI Narrative: This is a 71 year old female with history of peripheral neuropathy, chronic pain, DM who presents for evaluation of right knee pain s/p fall. PAtient states her foot was caught in a cord and this caused her to fall onto her right side. She reports most of her weight was on her right knee . She was able to get up and ambulated yesterday. This morning her pain has worsened. She states she has sciatica and this fall has exacerbated it. She is complaining of right knee pain that radiates to her right lateral hip. She denies new numbness or tingling but she does have peripheral neuropathy. She denies headache, dizziness, LOC. She does not take aspirin or anticoagulation. She also denies neck pain. She hit her right elbow but she denies having any pain today. Related Data Home Medications Medication Instructions Recorded Confirmed multivitamin 1 cap PO DAILY 06/26/20 11/25/21 calcium carbonate 215 mg calcium 215 mg PO TID tablet 09/10/21 11/14/21 (500 mg) chewable tablet dicyclomine 20 mg tablet 20 mg PO QID PRN 09/10/21 11/14/21 turmeric 400 mg capsule 800 mg PO DAILY cap 09/10/21 11/14/21 hydrocodone-acetaminophen 1 tablet PO Q6H PRN 11/14/21 11/14/21 Allergies Allergy/AdvReac Type Severity Reaction Status Date / Time No Known Allergies Allergy Verified 01/03/22 13:42 Review of Systems Review of Systems: All systems reviewed & are unremarkable except as noted in HPI and below PMFSH Past Medical History Medical History (Updated 01/03/22 @ 15:25 by Adamaris Ashby MD) Abdominal cramping Chronic back pain Epigastric pain Family history of malignant neoplasm of colon in mother Screening for osteoporosis Surgical History Surgical History (Updated 11/25/21 @ 10:26 by Carlito Dupont MD) Gastric bypass status for obesity History of bariatric surgery Family History Family History Sibling Cerebrovascular accident Patient's brother is Acute myocardial infarction Mother Carcinoma of colon Patient's mother is Father Family history of lung cancer Patient's father is Other Depression Family history of arthritis Family history of malignant neoplasm Hypertension Social History Social History Smoking packs per day: 1 Smoking cigarettes per day: 20.0 Years smoked: 50 Smoking pack-years: 50.00 Smoking status: Current every day smoker Tobacco type: cigarettes Second hand tobacco smoke exposure: Yes Alcohol intake: never Substance use: never Substance use type: does not use Spiritual care concerns: No Exam Const: General: alert Orientation/consciousness: patient oriented x3 HENMT: Head: normocephalic and atraumatic Face and sinus: normal facial exam, sinuses nontender and face symmetric Eyes: EOM: EOMs intact bilaterally Neck: Neck: normal visual inspection Chest: Chest palpation & inspection: normal inspection of the chest Resp: Effort & Inspection: normal respiratory effort and no retractions Auscultation: clear to auscultation bilaterally Cardio: Rate: regular rate Rhythm: regular rhythm Heart sounds: no murmurs GI: GI Palp: Yes Soft to palpation, No Tenderness to palpation present (GI) and No Guarding due to palpation present (GI) Auscultation: normal bowel sounds Neuro: General: patient oriented x3, moves all extremities and CN's II-XI intact bilaterally Extrem: Other: no right leg redness, bruising. PAtient has ttp right anterior knee and right lateral hip. Psych: Mental Status: mental status grossl
[2022-01-03 15:36] VITALS: BP 115/74; PULSE 90; RESP 16; O2SAT 98
== END 2022-01-03 15:45 | disposition home or self-care (01) ==
PROVIDERS: Emergency Provider General Practice; PCP Internal Medicine
DX: S83.91XA Sprain of unspecified site of right knee, initial encounter (principal); M25.551 Pain in right hip; E11.43 Type 2 diabetes mellitus with diabetic autonomic (poly)neuropathy; Z98.84 Bariatric surgery status; F17.210 Nicotine dependence, cigarettes, uncomplicated; M16.0 Bilateral primary osteoarthritis of hip; M17.11 Unilateral primary osteoarthritis, right knee; W18.09XA Striking against other object with subsequent fall, initial encounter
CPT/HCPCS: 73502; 73562; 96374; 96375; 99284; J1170; J2405

== ENCOUNTER 2022-04-08 10:00 | Outpatient (RCR) | payer OTHER, SELFPAY ==
--- NOTE | 2022-02-02 15:46 | PTOPEVAL ---
Thank you for referring Felicity Dunbar to [facility].? The patient is scheduled to be seen for therapy?2 x/week for 8 weeks. Please review, sign, date and return this plan of care LENORE. I agree with and certify that the following plan of care is medically necessary. Referring Physician Date Attending Provider: TEQUILA Archibald Diagnosis ashwini OA knee Additional Evaluation Detail 01/04/21 she woke up with sciatica and was bedbound for 7 months. She has been using a rollator since she started going to the chiropractor. Previous treatment for LE lymphedema. But not consistently wearing compression garments. HEP: seated stair stepper, hip abd/add and heel slides. Subjective Information She tripped on a cord at home Query Text:As Reported By Patient/ landing on her knee/hip region. Family Since the fall she has increased hip and sciatica pain. She went to ED and was a given a knee brace. She reports decreased muscle mass, LE movement, difficulty with functional mobility. c/o sharp pain on lateral knee and post knee region. c/o tenderness of ITB region. Diagnostic Tests X-Rays For This Problem Yes: OA right knee and hip Previous Treatments Previous Treatments For This Problem chiropractor 1x/wk. Pain Assessment Timing of Pain Assessment Timing of Pain Assessment Assessment Pain Scale Pain Scale Used Numeric (1 - 10) Self Report Pain Assessment Right Hip(s) Reported Pain Level 10 Pain Description Sharp,Tender on Palpation Pain Frequency Chronic Lowest Pain Intensity 7 Greatest Pain Intensity 10 Pain Aggravating Factors ADL's,Exercise/Activity, Sitting,Stair Climbing,Walking ,Weight Bearing/Standing Right Knee(s) Reported Pain Level 5 Pain Description Sharp,Tender on Palpation Pain Frequency Continuous Lowest Pain Intensity 3 Greatest Pain Intensity 8 Pain Aggravating Factors ADL's,Exercise/Activity, Walking,Weight Bearing/ Lower Extremity Range of Motion Knee Range of Motion Right Knee Flexion Range of Motion - Active 90 Knee Extension
--- NOTE | 2022-02-16 07:54 | PCPTNOTE ---
Patient called & cancelled scheduled appointment this date due to sickness.
--- NOTE | 2022-02-18 07:46 | PCPTNOTE ---
Patient called & cancelled scheduled appointment this date due to being sick with a temperature.
--- NOTE | 2022-02-23 08:42 | PCPTNOTE ---
Patient arrived to scheduled appointment 22min late thinking it was at a different time. Due to patient still not feeling well and reduced activity level cancelled today's appointment and will continue plan of care 02/25/22 @ 8:30.
--- NOTE | 2022-02-25 07:16 | PCPTNOTE ---
Patient called & cancelled scheduled appointment this date due to feeling sick, has a bad cough.
--- NOTE | 2022-03-09 07:53 | PTOPEVAL ---
Physical Therapy Progress Note Thank you for referring Felicity Dunbar to [facility].? She was referred to therapy due to recent fall at home contributing to increased right knee and hip pain. She has a complex history including sciatica, lymphedema, DDD of lumbar region and OA of knee and hip. She has attended 7 therapy visits with 4 missed visits from 02/02/22 to 03/09/22. As a result of skilled therapy services she demonstrates progress with functional mobility, improved LE strength, improved knee motion and improved tolerance with daily task. She is progressing towards her therapy goals. [place] [employer] Osteoarthritis Index (WOMAC): 71% impaired at eval and 62.5% impaired at update. Assessment: Felicity continues to require skilled therapy services to address her functional limitations, improve her strengh and pain, and progress her HEP to maintain her functional functional gains. Without additional therapy see will remain limited and at a higher fall risk. Will assess her vestibular impairment at a f/u visit. The patient is scheduled to be seen for therapy? 2 x/week for 5 weeks. Please review, sign, date and return this plan of care LENORE. I agree with and certify that the following plan of care is medically necessary. Referring Physician Date Attending Provider: TEQUILA Archibald Subjective Information She reports she does feel Query Text:As Reported By Patient/ stronger, but cont to feel she Family needs to work on her legs. Reports her sciatica pain increased this weekend. She cont to have difficulty getting her legs in the car. She performs her HEP daily. She fatigues when taking her shower. She does not use the shower bench. Reports her knee pain has improved, but cont to have right hip pain. She c/o vertigo symptoms with supine>sit or rolling in bed. She reports decreased muscle mass, LE movement, difficulty with functional mobility. c/o sharp pain on lateral knee and post knee region. c/o tenderness of ITB region. Pain Assessment Right Hip(s) Reported Pain Level 8 Pain Description Sharp,Stabbing,Tender on Palpation Pain Frequency Chronic Lowest Pain Intensity 5 Greatest Pain Intensity 10 Pain Aggravating Factors ADL's,Exercise/Activity, Sitting,Stair Climbing,Walking ,Weight Bearing/Standing Right Knee(s) Reported Pain Level 2 Pain Description Soreness Lowest Pain Intensity
--- NOTE | 2022-03-23 11:39 | PCPTNOTE ---
Patient called and rescheduled today's appointment due to running behind with previous MD appointment this date.
--- NOTE | 2022-04-06 09:01 | PCPTNOTE ---
Patient called & cancelled scheduled appointment this date due to not feeling well.
--- NOTE | 2022-04-17 12:51 | PCPTNOTE ---
PHYSICAL THERAPY DISCHARGE 04-17-22 Attending Provider: TEQUILA Archibald Patient:Felicity Dunbar Date of :1950 Mrs. Dunbar called today and wanted to cancel her PT treatment for R knee OA. She reports having more pain and swelling in both of her legs from the lymphedema and does not want to do anymore therapy for her knee. Therefore, she will be discharged from PT at this time. The goals were not addressed. She has received a total of 13 PT sessions, from February 02 to April 08. Thank you for referring Felicity to [facility]. Please review, sign, date and return this discharge summary LENORE. I have been updated about the patient's current status and I agree with discharge from the above service at this time. Referring Physician Date
== END 2022-04-27 11:06 | disposition home or self-care (01) ==
LOC: ANHPT 10:00
PROVIDERS: PCP Internal Medicine; Visit Provider Physician Assistant Surgical
DX: M17.0 Bilateral primary osteoarthritis of knee (principal)
CPT/HCPCS: 97110; 97112; 97116; 97140; 97162; 97530

== ENCOUNTER 2022-06-04 10:34 | Outpatient (CLI) | payer OTHER, SELFPAY ==
--- NOTE | ~2022-06-04 | CT_ITS ---
EXAMINATION: CT abdomen pelvis w con DATE: 06/04/2022 11:07 INDICATION: Abnormal weight loss. Nausea, vomiting, bilateral abdominal pain TECHNIQUE: Computed tomography (CT) of the abdomen and pelvis was performed with 100 CC Omnipaque 350 intravenous contrast. Automated exposure control and iterative reconstruction technique were employe d. Exam dose: 738.66 mGy-cm total exam DLP. COMPARISON: 08/02/2021 complete abdominal ultrasound examination 03/21/2021 CT pelvis FINDINGS: The lung bases are clear of consolidation. Normal heart size. No pericardial or pleural eff usion. Prominent diffuse hepatic steatosis. No hepatic space-occupying mass lesion is evident. Status post c holecystectomy. No bile duct or pancreatic duct dilatation. No pancreatic mass lesion or calcificatio n. Normal splenic size. Normal morphology of the adrenal glands. No renal mass lesion or urinary tract calculus or hydroureteronephrosis. The urinary bladder, uterus and adnexal areas are unremarkable. There is atherosclerotic calcification of the abdominal aorta and iliac arteries. No intraperitoneal or retroperitoneal or pelvic mass lesion or adenopathy or ascites. Status post gastric bypass surgical changes. Normal appendix. No bowel obstruction, bowel wall thickening, pneumatosis or intraperitoneal free air is detected. Diffuse osteopenia. Severe degenerative disc disease and mild retrolisthesis at L5-S1. IMPRESSION: Status post gastric bypass surgery Prominent hepatic steatosis Reviewed, dictated and finalized at Location A. Reviewed, dictated and finalized at location B.
[2022-06-04 10:57] LABS: Estimated Glomerular Filt Rate > 60
== END 2022-06-04 10:35 ==
LOC: MICIMG 10:35
PROVIDERS: PCP Internal Medicine; Visit Provider Internal Medicine
DX: R63.4 Abnormal weight loss (principal); K76.0 Fatty (change of) liver, not elsewhere classified; Z98.84 Bariatric surgery status
CPT/HCPCS: 74177; Q9967

== ENCOUNTER 2022-06-30 01:07 | Day surgery (SDC) | payer OTHER, SELFPAY ==
[2022-06-18 12:16] VITALS: BMI 29.7
[2022-06-30 07:42] VITALS: BP 134/83; PULSE 74; RESP 18; TEMP 36; O2SAT 99; BMI 29.1
[2022-06-30] MEDS: LACTATED RINGERS 1,000 ML 150 ML IV CONT (07:55)
--- NOTE | 2022-06-30 08:35 | PM.HPGS ---
History of Present Illness History of Present Illness Consent: Risks, benefits, and alternatives have been discussed and questions answered. Patient agrees to proceed with procedure. Chief complaint: hx of colon polyps Narrative: Vicente Dunbar is a 71 year old female here for screening colonoscopy, mother had colon cancer Review of Systems Constitutional: Constitutional: Denies headache(s) and Denies weakness Eyes: Eyes: Denies blurry vision ENT: Reports Normal hearing present, Denies headache(s) and Denies neck pain Cardiovascular: Cardiovascular: Denies chest pain and Denies dyspnea Respiratory: Respiratory: Denies dyspnea Gastrointestinal: Gastrointestinal: Reports no additional gastrointestinal complaints Genitourinary: Genitourinary: Denies dysuria Musculoskeletal: Musculoskeletal: Denies neck pain Integumentary/Breasts: Skin/Breast: Denies dry skin Neurologic: Reports Normal hearing present, Denies headache(s) and Denies weakness Psychiatric: Psychiatric: Denies anxiety Endocrine: Endocrine: Denies change in body appearance Hematologic/Lymphatic: Hematologic/Lymphatic: Denies easy bleeding Allergic/Immunologic: Allergic/Immunologic: Denies urticaria PMFSH Past Medical History Medical History Abdominal cramping Chronic back pain Encounter for screening colonoscopy Epigastric pain Family history of malignant neoplasm of colon in mother Screening for osteoporosis Surgical History Surgical History Gastric bypass status for obesity History of bariatric surgery Family History Family History Sibling Cerebrovascular accident Patient's brother is Acute myocardial infarction Mother Carcinoma of colon Patient's mother is Father Family history of lung cancer Patient's father is Other Depression Family history of arthritis Family history of malignant neoplasm Hypertension Social History Social History (Updated 05/19/22 @ 10:05 by MARTHA Lemus) Smoking packs per day: 0.5 Smoking cigarettes per day: 10.0 Years smoked: 50 Smoking pack-years: 25.00 Smoking status: Current every day smoker Tobacco type: cigarettes Second hand tobacco smoke exposure: Yes Alcohol intake: never Substance use: never Substance use type: does not use Living arrangements: with family Spiritual care concerns: No Meds Home Medications and Allergies Home Medications Medication Instructions Recorded Confirmed Type blood glucose control high and low #1 ea 10/19/19 06/30/22 Rx solution (Accu-Chek Juana Control Soln solution) multivitamin 1 cap PO DAILY 06/26/20 06/30/22 History blood-glucose meter (Accu-Chek #1 ea 10/02/20 06/30/22 Rx Juana Plus Meter) cyanocobalamin (vitamin B-12) 1,000 mcg IM .biweekly #10 mL 10/11/20 06/30/22 Rx 1,000 mcg/mL injection solution blood sugar diagnostic (Accu-Chek See Rx Instructions .Route 01/28/21 06/30/22 Rx Juana Plus test strips) .COMPLEX #200 strips omeprazole 40 mg capsule,delayed See Rx Instructions .Route 06/16/21 06/30/22 Rx release .COMPLEX #90 caps syringe with needle, safety 3 mL #50 ea 08/05/21 06/30/22 Rx 22 gauge x 1 (Monoject Safety Syringes) calcium carbonate 215 mg calcium 215 mg PO TID 09/10/21 06/30/22 History (500 mg) chewable tablet (Antacid Calcium) dicyclomine 20 mg tablet 20 mg PO QID PRN Abdominal 09/10/21 06/30/22 History Discomfort turmeric 400 mg capsule 800 mg PO DAILY 09/10/21 06/30/22 History triamterene 37.5 See Rx Instructions .Route 09/16/21 06/30/22 Rx mg-hydrochlorothiazide 25 mg tablet .COMPLEX #90 tabs lancets (Accu-Chek Softclix See Rx Instructions .Route 09/30/21 06/30/22 Rx Lancets) .COMPLEX #200 ea hydrocodone 10 mg-acetaminophen 1 tablet PO Q6H PRN Pain
--- NOTE | 2022-06-30 08:39 | WPDANESEPPF ---
Anes - Initial Pre Proc Eval Procedure: Operation Date: 06/30/22 09:00 Proposed Procedures p Screening Colonoscopy - Carlito Dupont MD Date/Time: 06/30/22 08:39 Surgeon: Carlito Dupont MD Pre Op Diagnosis: hx of colon polyps Patient Data Age: 71 Gender: F Height: 1.7 m Weight: 84.3 kg Last Vital Signs Temp 96.8 F L 06/30/22 07:42 Pulse 74 06/30/22 07:42 Resp 18 06/30/22 07:42 BP 134/83 06/30/22 07:42 Pulse Ox 99 06/30/22 07:42 O2 Del Method Room Air 06/30/22 07:42 Allergies Allergy/AdvReac Type Severity Reaction Status Date / Time No Known Allergies Allergy Verified 06/30/22 07:40 Home Medications Medication Instructions Recorded Confirmed Type blood glucose control high and low #1 ea 10/19/19 06/30/22 Rx solution (Accu-Chek Juana Control Soln solution) multivitamin 1 cap PO DAILY 06/26/20 06/30/22 History blood-glucose meter (Accu-Chek #1 ea 10/02/20 06/30/22 Rx Juana Plus Meter) cyanocobalamin (vitamin B-12) 1,000 mcg IM .biweekly #10 mL 10/11/20 06/30/22 Rx 1,000 mcg/mL injection solution blood sugar diagnostic (Accu-Chek See Rx Instructions .Route 01/28/21 06/30/22 Rx Juana Plus test strips) .COMPLEX #200 strips omeprazole 40 mg capsule,delayed See Rx Instructions .Route 06/16/21 06/30/22 Rx release .COMPLEX #90 caps syringe with needle, safety 3 mL #50 ea 08/05/21 06/30/22 Rx 22 gauge x 1 (Monoject Safety Syringes) calcium carbonate 215 mg calcium 215 mg PO TID 09/10/21 06/30/22 History (500 mg) chewable tablet (Antacid Calcium) dicyclomine 20 mg tablet 20 mg PO QID PRN Abdominal 09/10/21 06/30/22 History Discomfort turmeric 400 mg capsule 800 mg PO DAILY 09/10/21 06/30/22 History triamterene 37.5 See Rx Instructions .Route 09/16/21 06/30/22 Rx mg-hydrochlorothiazide 25 mg tablet .COMPLEX #90 tabs lancets (Accu-Chek Softclix See Rx Instructions .Route 09/30/21 06/30/22 Rx Lancets) .COMPLEX #200 ea hydrocodone 10 mg-acetaminophen 1 tablet PO Q6H PRN Pain, Moderate 11/14/21 06/30/22 History 325 mg tablet alcohol swabs 1 pad topical BID #200 ea 11/27/21 06/30/22 Rx furosemide 20 mg tablet 20 mg PO QAM PRN edema #90 tabs 02/23/22 06/30/22 Rx pregabalin 100 mg capsule (Lyrica) 100 mg PO TID #90 caps 04/20/22 06/30/22 Rx alprazolam 1 mg tablet 1 mg PO TID PRN anxiety #90 tabs 06/29/22 06/30/22 Rx Patient hx anesthesia problems: none Family hx anesthesia problems: none Results Review: All pre-operative results and documents have been reviewed as part of the pre-operative evaluation. [facility] Past Medical History Medical History Abdominal cramping Chronic back pain Encounter for screening colonoscopy Epigastric pain Family history of malignant neoplasm of colon in mother Screening for osteoporosis Surgical History Surgical History Gastric bypass status for obesity History of bariatric surgery Family History Family History Sibling Cerebrovascular accident Patient's brother is Acute myocardial infarction Mother Carcinoma of colon Patient's mother is Father Family history of lung cancer Patient's father is Other Depression Family history of arthritis Family history of malignant neoplasm Hypertension Social History Social History (Updated 05/19/22 @ 10:05 by MARTHA Lemus) Smoking packs per day: 0.5 Smoking cigarettes per day: 10.0 Years smoked: 50 Smoking pack-years: 25.00 Smoking status: Current every day smoker Tobacco type: cigarettes Second hand tobacco smoke exposure: Yes Alcohol intake: never Substance use: never Substance use type: does not use Living arrangements: with family Spiritual care concerns: No Anes - Eval Final PreProcedure
[2022-06-30 09:04] VITALS: BP 102/60; PULSE 54; RESP 13; O2SAT 98
[2022-06-30 09:14] VITALS: BP 109/63; PULSE 61; RESP 16; O2SAT 98
[2022-06-30 09:24] VITALS: BP 123/68; PULSE 56; RESP 16; O2SAT 100
== END 2022-06-30 09:30 | disposition home or self-care (01) ==
PROVIDERS: PCP Internal Medicine; Visit Provider Internal Medicine Gastroenterology
PROC: 0DJD8ZZ Inspection of Lower Intestinal Tract, Via Natural or Artificial Opening Endoscopic (ICD-10-PCS; CPT 45378; principal; 2022-06-30 09:00)
DX: Z12.11 Encounter for screening for malignant neoplasm of colon (principal); D12.0 Benign neoplasm of cecum; K57.30 Diverticulosis of large intestine without perforation or abscess without bleeding; K64.8 Other hemorrhoids; Z98.84 Bariatric surgery status; F17.210 Nicotine dependence, cigarettes, uncomplicated; Z80.0 Family history of malignant neoplasm of digestive organs
CPT/HCPCS: 45385; 88305; J2704; J7120

== ENCOUNTER 2022-07-15 12:51 | Outpatient (CLI) | payer OTHER, SELFPAY ==
--- NOTE | ~2022-07-15 | XR_ITS ---
EXAMINATION: XR lumbar spine 2-3V DATE: 07/15/2022 13:07 INDICATION: Lumbar radiculopathy TECHNIQUE: Anteroposterior and lateral views of the lumbar spine, and cone-down lateral view of the l umbosacral junction were obtained. COMPARISON: 03/10/2021 FINDINGS: Lumbar dextrocurvature is again noted. There are 3 mm of unchanged retrolisthesis of L5 on S1. There is severe loss of intervertebral disc space height at L5-S1. The vertebral body heights are normal. There is no fracture. Moderate to severe facet joint osteoarthritis is noted. There are mult iple phleboliths of the pelvis. The bowel gas pattern is normal. Surgical changes are noted in the up per abdomen. IMPRESSION: 1. Severe lumbar spondylosis without acute findings or significant interval change. Reviewed, dictated and finalized at location B. IMPRESSION: 1. Severe lumbar spondylosis without acute findings or significant interval dionisio nge.
== END 2022-07-15 12:52 ==
LOC: MICIMG 12:53
PROVIDERS: PCP Internal Medicine; Visit Provider Pain Medicine Interventional Pain Medicine
DX: M47.26 Other spondylosis with radiculopathy, lumbar region (principal); M47.27 Other spondylosis with radiculopathy, lumbosacral region; G89.4 Chronic pain syndrome
CPT/HCPCS: 72100

== ENCOUNTER → 2023-07-26 10:25 | Outpatient (CLI) | payer OTHER, SELFPAY ==
--- NOTE | ~2023-07-26 | XR_ITS ---
EXAMINATION: XR lumbar spine 2-3V DATE: 07/26/2023 11:24 INDICATION: Radiculopathy, lumbosacral region. TECHNIQUE: 3 views of lumbar spine including standing views were obtained. COMPARISON: Lumbar spine radiographs 07/15/2022 FINDINGS: There is 10 degrees dextroscoliosis of lumbar spine. Vertebral body heights are normal. The re is severely decreased disc height at L5-S1. There is multilevel severe facet joint osteoarthritis. There are surgical clips in the abdomen. IMPRESSION: 1. Severe lower lumbar spondylosis. 2. Lumbar dextroscoliosis. Reviewed, dictated and finalized at location A.
--- NOTE | ~2023-07-26 | XR_ITS ---
EXAMINATION: XR thoracic spine 3V DATE: 07/26/2023 11:24 INDICATION: Radiculopathy, thoracic spine. TECHNIQUE: 3 views of thoracic spine were obtained including standing views. COMPARISON: Thoracic spine radiographs 08/26/2020 FINDINGS: There is 8 degrees levocurvature of thoracic spine. There is kyphosis of thoracic spine. Th ere is mild chronic anterior wedging of multiple upper thoracic vertebral bodies. There is decreased disc height at many levels, severe in upper and mid thoracic spine. There are endplate osteophytes at most levels. IMPRESSION: 1. Severe thoracic spondylosis. Reviewed, dictated and finalized at location A.
--- NOTE | ~2023-07-26 | XR_ITS ---
EXAMINATION: XR_CERV2-3V_CR DATE: 07/26/2023 11:24 INDICATION: Radiculopathy, cervical region. TECHNIQUE: 3 views of cervical spine including standing views were obtained. COMPARISON: Cervical spine radiographs 01/10/2020 FINDINGS: There is 2 mm retrolisthesis of C5 on C6. Vertebral body heights are normal. There is moder ately decreased disc height at C5-C6 and mildly decreased disc height at C4-C5 and C6-C7. There is mu ltilevel mild to moderate facet joint osteoarthritis. There is multilevel uncovertebral joint osteoar thritis, severe bilaterally at C5-C6. There is mild central canal stenosis at C5-C6. No prevertebral soft tissue swelling. IMPRESSION: 1. Moderate cervical spondylosis. Reviewed, dictated and finalized at location A.
== END ==
PROVIDERS: PCP Pain Medicine Interventional Pain Medicine; Visit Provider Pain Medicine Interventional Pain Medicine
DX: M47.22 Other spondylosis with radiculopathy, cervical region (principal); M47.26 Other spondylosis with radiculopathy, lumbar region; M47.24 Other spondylosis with radiculopathy, thoracic region
CPT/HCPCS: 72040; 72072; 72100

== ENCOUNTER 2023-10-11 01:08 | Emergency (ER) | payer OTHER, SELFPAY ==
--- NOTE | ~2023-10-11 | XR_ITS ---
Right wrist Technique: PA, oblique, lateral, and ulnar deviation views were obtained. Clinical History: Pain and swelling Findings: No acute fracture or dislocation is seen. Osseous alignment is anatomic. Joint spaces are p reserved. There is chondrocalcinosis of the TFCC. Questionable mild erosions of the triquetrum. Proba ble mild soft tissue swelling at the wrist. Impression: Chondrocalcinosis of the TFCC with probable mild soft tissue swelling about the wrist. Questionable mild erosions of the triquetrum. If there is concern for inflammatory arthropathy, consi guillermina follow-up MR to further evaluate. No fracture or dislocation seen. Reviewed, dictated and finalized at location M. AL ATTENDANT Impression: Chondrocalcinosis of the TFCC with probable mild soft tissue swelling about the wrist. Questionable mild erosions of the triquetrum. If there is concern for inflammat ory arthropathy, consider follow-up MR to further evaluate. No fracture or dislocation seen.
[2023-10-11 01:15] VITALS: BP 157/97; PULSE 87; RESP 16; TEMP 37.7; O2SAT 100
[2023-10-11] MEDS: MORPHINE SULFATE (*CRX) 4 MG/ML INJ IV PUSH (01:39)
[2023-10-11] MEDS: ONDANSETRON INJ 4 MG/2 ML VIAL IV PUSH (01:47)
[2023-10-11 01:57] LABS: Basophils Absolute Auto 0.1 K/mm3 (0.0-0.1); Basophils Percent Auto 0.5 % (0.2-1.2); Eosinophils Absolute Auto 0.1 K/mm3 (0-0.3); Eosinophils Percent Auto 0.6 % (0-4.4); Hematocrit 46.7 % (37.0-47.0); Hemoglobin 15.2 g/dL (12.0-15.0); Immature Granulocyte Absolute 0.03 K/mm3 (0.00-0.031); Immature Granulocyte Percent A 0.3 % (0-0.5); Lymphocytes Absolute Auto 2.09 K/mm3 (0.9-3.2); Lymphocytes Percent Auto 20.4 % (18.3-44.2); Mean Corpuscular HGB Conc 32.5 g/dl (32-36); Mean Corpuscular Hemoglobin 33.2 pg (26-34); Mean Platelet Volume 11.9 fl (7.4-10.4); Monocytes Absolute Auto 1.4 K/mm3 (0.1-0.6); Monocytes Percent Auto 13.4 % (2.6-8.5); Neutrophils Absolute Auto 6.6 K/mm3 (1.3-6.7); Neutrophils Percent Auto 64.8 % (45.5-73.1); Platelet Count Result 196 k/mm3 (150-375); Red Blood Count 4.58 M/mm3 (4.2-5.4); Red Cell Distribution Width 14.3 % (11.5-14.5); White Blood Count 10.2 K/mm3 (4.5-10.0)
--- NOTE | 2023-10-11 02:10 | ED.UPPEXIN ---
HPI - Extremity Injury (Upper) General Chief Complaint: Extremity Injury, Upper <Sarah Schroeder PA-C - Last Filed: 10/11/23 02:59> Stated Complaint: R wrist pain <Sarah Schroeder PA-C - Last Filed: 10/11/23 02:59> Time Seen by Provider: 10/11/23 01:14 <ROSA Alford Last Filed: 10/11/23 02:59> Source: patient <ROSA Alford Last Filed: 10/11/23 02:59> Mode of arrival: ambulatory <ROSA Alford Last Filed: 10/11/23 02:59> Limitations: no limitations <ROSA Alford Last Filed: 10/11/23 02:59> History of Present Illness HPI narrative: Patient is a 72-year-old female who presents to the ED with report of right wrist pain. Patient reports she picked up a blanket off the ground 2 days ago and strained/twisted her right wrist. She has had persistent pain since then, became worse tonight. She tried taking her home hydrocodone around 11:00 p.m. without relief. She states her wrist began to tell looking red and swollen today as well. She reports subjective fevers. Denies wounds, direct fall, Hx of gout. <Sarah Schroeder PA-C - Last Filed: 10/11/23 02:59> Related Data Home Medications: Home Medications Medication Instructions Recorded Confirmed multivitamin 1 cap PO DAILY 06/26/20 09/15/23 calcium carbonate 215 mg calcium 215 mg PO TID 09/10/21 09/15/23 (500 mg) chewable tablet (Antacid Calcium) turmeric 400 mg capsule 800 mg PO DAILY 09/10/21 09/15/23 hydrocodone 10 mg-acetaminophen 1 tablet PO Q6H PRN Pain, Moderate 11/14/21 09/15/23 325 mg tablet celecoxib 200 mg capsule (Celebrex) 200 mg PO BID 10/01/22 09/15/23 mecobalamin (vitamin B12) 1,000 1,000 mcg sublingual .biweekly 12/08/22 09/15/23 mcg disintegrating tablet,sublingual <Sarah Schroeder PA-C - Last Filed: 10/11/23 02:59> Allergies/Adverse Reactions: Allergies Allergy/AdvReac Type Severity Reaction Status Date / Time No Known Allergies Allergy Verified 10/11/23 01:18 <Sarah Schroeder PA-C - Last Filed: 10/11/23 02:59> Review of Systems Review of Systems: CONSTITUTIONAL: reports subjective fevers. SKIN: See HPI. MUSCULOSKELETAL: See HPI. NEUROLOGIC: Denies headache, numbness, or weakness. <Sarah Schroeder PA-C - Last Filed: 10/11/23 02:59> All systems reviewed & are unremarkable except as noted in HPI and below <Sarah Schroeder PA-C - Last Filed: 10/11/23 02:59> PMFSH Past Medical History Medical History: Medical History Abdominal cramping Anxiety Carpal tunnel syndrome of left wrist Chronic back pain Depression Depression Encounter for screening colonoscopy Epigastric pain Essential (primary) hypertension Family history of malignant neoplasm of colon in mother Gastroesophageal reflux disease Hypoglycemia Lumbar degenerative disc disease Peripheral polyneuropathy Primary osteoarthritis of both knees Restless legs syndrome Screening for osteoporosis Tobacco abuse Vitamin B 12 deficiency <Sarah Schroeder PA-C - Last Filed: 10/11/23 02:59> Surgical History Surgical History: Surgical History Gastric bypass status for obesity History of bariatric surgery History of bariatric surgery <Sarah Schroeder PA-C - Last Filed: 10/11/23 02:59> Family History Family History: Family History Sibling Cerebrovascular accident Patient's brother is Acute myocardial infarction Mother Carcinoma of colon Patient's mother is Father Family history of lung cancer Patient's father is Other Depression Family history of arthritis Family history of malignant neoplasm Hypertension <Sarah Schroeder PA-C - Last Filed: 12/11/23 02:59>
[2023-10-11 02:30] VITALS: TEMP 36.8
[2023-10-11 02:44] LABS: Erythrocyte Sedimentation Rate 12 mm/hr (0-20)
[2023-10-11] MEDS: KETOROLAC 30 MG/ML VIAL (*BKC) IV PUSH (03:00)
[2023-10-11 03:29] LABS: Alanine Aminotransferase 12 U/L (6-35); Albumin Level 4.1 g/dL (3.5-5.1); Alkaline Phosphatase 117 U/L (38-126); Anion Gap 8 mmol/L (8-16); Aspartate Amino Transferase 23 U/L (14-36); Bilirubin,Total 1.1 mg/dL (0.2-1.3); Blood Urea Nitrogen 16 mg/dL (7-17); Calcium 8.9 mg/dL (8.4-10.2); Carbon Dioxide 25 mmol/L (22-30); Chloride 104 mmol/L (98-107); Estimated CRCL calculation 79 ml/min; Estimated Glomerular Filt Rate > 60; Glucose 109 mg/dL (65-110); Potassium 3.8 mmol/L (3.4-5.0); Sodium 137 mmol/L (137-145)
[2023-10-11] MEDS: MORPHINE SULFATE (*CRX) 2 MG/ML INJ IV PUSH (04:07)
== END 2023-10-11 04:00 | disposition home or self-care (01) ==
PROVIDERS: Physician Assistant; Emergency Provider Preventive Medicine Aerospace Medicine; PCP Family Medicine
DX: M25.531 Pain in right wrist (principal); I10 Essential (primary) hypertension; F17.210 Nicotine dependence, cigarettes, uncomplicated
CPT/HCPCS: 29125; 36415; 73110; 80053; 83605; 85025; 85652; 86140; 96374; 96375; 96376; 99284; A4565; J1885; J2270; J2405

== ENCOUNTER 2023-12-21 07:28 | Outpatient (CLI) | payer OTHER, SELFPAY ==
--- NOTE | ~2023-12-21 | NM_ITS ---
EXAMINATION: NM binta stress w perfusion DATE: 12/21/2023 10:55 INDICATION: Chest pain TECHNIQUE: Rest images were obtained following intravenous administration of 10.6 mCi Tc99m tetrofosm in (Myoview). The patient was infused intravenously with Lexiscan (Regadenoson). Then, 33.7 mCi Tc99m tetrofosmin (Myoview) was administered intravenously, and stress images were obtained. Data was brandie nstructed into short axis and horizontal and vertical long axis SPECT images. Gated SPECT images were also obtained. COMPARISON: None. FINDINGS: There is no definite reversible or fixed perfusion abnormality to suggest ischemia or infar ction. There is normal left ventricular chamber size, wall motion and ejection fraction. Left ventr icular ejection fraction measures >70%. IMPRESSION: 1. Normal myocardial perfusion at rest and during stress. 2. Left ventricular ejection fraction measuring >70%. Reviewed, dictated and finalized at location A. [employer]
--- NOTE | 2023-12-21 07:37 | ECHO_ITS ---
Patient Info Name: Vicente Dunbar Age: 73 years : 1950 Gender: Female Ht: 67 in Wt: 200 lbs BSA: 2.10 m2 HR: 67 bpm BP: 132 / 68 mmHg Technical Quality: Good Exam Date: 12/21/2023 7:45 AM Exam Location: Echo Lab Patient Status: Outpatient Admit Date: 12/21/2023 Staff Ordering Physician: Gregg Raymundo DO Mobile Lounge Driver Or Operator: Attending Provider: Gregg Raymundo DO Referring Physician: Zackary JACOME; Exam Type: CA echo doppler color flow Study Info Indications R07.9 - Chest pain, unspecified Complete two-dimensional, color flow and Doppler transthoracic echocardiogram is performed. Summary 1. Complete two-dimensional, color flow and Doppler transthoracic echocardiogram is performed. 2. Left ventricular chamber dimension is normal. 3. Left ventricular systolic function is normal, estimated at 60-65%. 4. The left ventricular diastolic function is abnormal. 5. E/e' 15 is elevated. 6. Left atrial chamber dimension is mildly enlarged. 7. Right atrial chamber dimension is mildly enlarged. 8. There is mild mitral valve regurgitation. 9. There is moderate tricuspid valve regurgitation. 10. Mild pulmonary hypertension, estimated pulmonary arterial systolic pressure is 44 mmHg. Left Ventricle E/e' 15 is elevated. Left ventricular chamber dimension is normal. Left ventricular systolic function is normal, estimated at 60-65%. The left ventricular diastolic function is abnormal. Right Ventricle Right ventricular systolic function is normal and with normal TAPSE 2.6 cm. Right ventricular chamber dimension is normal. Left Atria Left atrial chamber dimension is mildly enlarged. Right Atria Right atrial chamber dimension is mildly enlarged. Aortic Valve The aortic valve is trileaflet. There is no aortic valve stenosis. There is no aortic valve regurgitation. Pulmonic Valve There is no pulmonic regurgitation. Mitral Valve There is no mitral valve stenosis. There is mild mitral valve regurgitation. Tricuspid Valve There is moderate tricuspid valve regurgitation. Mild pulmonary hypertension, estimated pulmonary arterial systolic pressure is 44 mmHg. Pericardium/Pleural There is no pericardial effusion. Inferior Vena Cava Normal inferior vena cava with >50% collapse upon inspiration consistent with normal right atrial pressure, 5 mmHg. Aorta The aortic root size at the sinus of Valsalva is normal. Left Ventricular Outflow Tract Name Value Normal LVOT 2D LVOT Diameter 2.1 cm LVOT Doppler LVOT Peak Gradient 3 mmHg LVOT Mean Gradient 2 mmHg LVOT VTI 23 cm LVOT VTI/AV VTI Ratio 0.6 LVOT Stroke Volume 77 ml LVOT CO 5.0 l/min LVOT CI 2.4 l/min/m2 Pulmonic Valve Name Value Normal PV Doppler PV Peak Gradient 2 mmHg
--- NOTE | 2023-12-21 07:59 | EST_ITS ---
Patient Info Name: Vicente Dunbar Age: 73 years : 1950 Gender: Female Ht: 67 in Wt: 190 lbs BSA: 2.04 m2 HR: 72 bpm BP: 121 / 98 mmHg Heart Rhythm: Sinus Rhythm Exam Date: 12/21/2023 9:36 AM Exam Location: Echo Lab Patient Status: Outpatient Admit Date: 12/21/2023 Staff Ordering Physician: Gregg Raymundo DO Attending Provider: Gregg Raymundo DO Exercise Technologist: Karina White CT Exercise Physician: Gregg Raymundo DO Exam Type: CA stress binta w NM Study Info Indications R07.89 - Other chest pain A regadenoson stress test was performed. Summary 1. 1. Negative lexiscan stress test for ischemic ST changes by ECG criteria. 2. 2. Stable hemodynamics throughout the test. 3. 3. Nuclear scan to follow and will be reported separately. Please correlate with it. 4. 4. Patient informed of the above results. Protocol: Lexiscan Stress ECG Details Stage: REST Duration (min): 1 min : 48 sec HR (bpm): 65 SBP (mmHg): 121 DBP (mmHg): 98 Stage: REST Duration (min): 7 min : 56 sec HR (bpm): 64 SBP (mmHg): 121 DBP (mmHg): 98 Stage: STAGE 1 Duration (min): 1 min : 0 sec HR (bpm): 80 SBP (mmHg): 168 DBP (mmHg): 100 Stage: RECOVERY Duration (min): 1 min : 0 sec HR (bpm): 84 SBP (mmHg): 168 DBP (mmHg): 100 Stage: RECOVERY Duration (min): 2 min : 0 sec HR (bpm): 86 SBP (mmHg): 168 DBP (mmHg): 100 Stage: RECOVERY Duration (min): 3 min : 0 sec HR (bpm): 86 SBP (mmHg): 168 DBP (mmHg): 100 Stage: RECOVERY Duration (min): 3 min : 19 sec HR (bpm): 89 SBP (mmHg): 122 DBP (mmHg): 69 Rest HR: 64 bpm Peak HR: 88 bpm Rest Sys BP: 121 mmHg Peak Sys BP: 168 mmHg Max Pred HR: 145 bpm % Max Pred HR: 61 % Target HR: 123 bpm Max RPP: 14,784 bpm*mmHg Termination Reason: Completed protocol Cardiac Symptoms: Shortness of breath Total Time: 1 min : 0 sec Rest Miles BP: 98 mmHg Peak Miles BP: 100 mmHg Total Dose: 0.4 mg Resting ECG Sinus rhythm. Stress ECG No ST changes. Arrhythmias None. Report Signatures
== END 2023-12-21 07:29 | disposition home or self-care (01) ==
LOC: ANHCARD 07:29
PROVIDERS: PCP Family Medicine; Visit Provider Internal Medicine Cardiovascular Disease
DX: R07.9 Chest pain, unspecified (principal); R60.0 Localized edema; I27.20 Pulmonary hypertension, unspecified; I08.1 Rheumatic disorders of both mitral and tricuspid valves
CPT/HCPCS: 78452; 93017; 93306; A9502; J2785

== ENCOUNTER 2024-08-09 08:23 | Outpatient (CLI) | payer OTHER, SELFPAY ==
--- NOTE | ~2024-08-09 | XR_ITS ---
EXAMINATION: XR thoracic spine 3V DATE: 08/09/2024 08:43 INDICATION: Radiculopathy, thoracic region. TECHNIQUE: 3 views of thoracic spine standing were obtained. COMPARISON: Thoracic spine radiographs 07/26/2023 FINDINGS: There is 4 degrees levocurvature of thoracic spine. There is kyphosis of thoracic spine. Th ere is mild chronic anterior wedging of multiple vertebral bodies in upper thoracic spine. There is s everely decreased disc height at multiple levels in mid thoracic spine. A calcified right lung nodule is consistent with old granulomatous disease. IMPRESSION: 1. Severe thoracic spondylosis. 2. Thoracic kyphosis. Reviewed, dictated and finalized at location A.
--- NOTE | ~2024-08-09 | XR_ITS ---
EXAMINATION: XR lumbar spine 2-3V DATE: 08/09/2024 08:43 INDICATION: Radiculopathy, lumbar region. TECHNIQUE: 3 views of lumbar spine standing were obtained. COMPARISON: Lumbar spine radiographs 07/26/23 FINDINGS: There is 8 degrees dextrocurvature of lumbar spine. Vertebral body heights are normal. Ther e is mildly decreased disc height at L3-L4 and L4-L5 and severely decreased disc height at L5-S1. The re is multilevel severe facet joint osteoarthritis. Surgical clips are noted in the abdomen. IMPRESSION: 1. Severe lower lumbar spondylosis. Reviewed, dictated and finalized at location A.
== END 2024-08-09 08:24 | disposition home or self-care (01) ==
PROVIDERS: Visit Provider Pain Medicine Interventional Pain Medicine
DX: M47.816 Spondylosis without myelopathy or radiculopathy, lumbar region (principal); M47.814 Spondylosis without myelopathy or radiculopathy, thoracic region; M40.204 Unspecified kyphosis, thoracic region
CPT/HCPCS: 72072; 72100

== ENCOUNTER 2025-04-19 06:25 | Inpatient (IN) | payer MEDICARE, SELFPAY ==
[2025-04-19] VITALS (8 sets, daily range): BP systolic 109–156; BP diastolic 57–84; PULSE 62–82; RESP 13–23; TEMP 36.3–36.9; O2SAT 95–98; BMI 28.4
--- NOTE | ~2025-04-19 | CT_ITS ---
CT abdomen pelvis w con Ordering provider: Shreyas Jj III, DO History: 74 years Female with . epigastric pain . Comparison: June 04, 2022 Technique: CT abdomen and pelvis with IV and without oral contrast. Automated exposure control and it erative reconstruction technique were employed. The dose-length product was 592.14 mGy-cm. 100 mL Omn ipaque 350 was given IV. Findings: VISUALIZED LOWER CHEST: Dependent atelectatic changes. UPPER ABDOMINAL ORGANS: Liver: Fat infiltration. Hepatomegaly Gallbladder: Status post cholecystectomy. Spleen: Normal. Stomach/duodenum: Postoperative changes in the stomach. Pancreas: Atrophic. Adrenals: Normal. Kidneys: Normal. PELVIC ORGANS: The bladder is normal. BOWEL AND MESENTERY: Colon: No evidence of diverticulitis.. Appendix is normal. Small Bowel: Normal. No obstruction. Peritoneum/mesentery: No free air or free fluid. No mesenteric lymphadenopathy. RETROPERITONEUM: Mild atheromatous disease of the abdominal aorta. No retroperitoneal lymphadenopat hy. MUSCULOSKELETAL: Superficial soft tissues: The superficial soft tissues are normal. Bones: Age appropriate degenerative changes of the spine. IMPRESSION: 1. No evidence of appendicitis, diverticulitis or intestinal obstruction. 2. Hepatomegaly with fat infiltration of the liver. 3. Slightly atrophic pancreas. Reviewed, dictated and finalized at location A.
--- NOTE | ~2025-04-19 | US_ITS ---
Limited Abdominal Sonogram: Real-time sonographic imaging of the right upper quadrant was performed. Clinical History: Pancreatitis Findings: The liver appears echogenic, with no evidence of mass lesion or bile duct dilatation. Main portal vein demonstrates normal direction of flow. The gallbladder is absent, compatible with prior cholecystectomy. The common bile duct measures 6 mm. The visualized pancreas, aorta, and IVC are unr emarkable. Right kidney unremarkable. Impression: Diffuse fatty infiltration of liver. Status post cholecystectomy. Reviewed, dictated and finalized at location M. Impression: Diffuse fatty infiltration of liver. Status post cholecystectomy.
--- OUTSIDE RECORDS SUMMARY | 2025-04-19 06:28 | XMS_ITS | Referral Summary ---
Author Organization [facility] [address] Address [address] [place] [address] Care Team Providers Care Digital Forensics Investigator Name Role Phone Vahid Soria DO Primary Care Provider [phone] Allergies No known active allergies Medications triamterene-hyd roCHLOROthiazid e 37.5-25 mg per tablet 03/08/2021 Active pregabalin (LYRICA) 75 mg capsule TAKE 1 CAPSULE BY MOUTH THREE TIMES A DAY 03/11/2021 Active omeprazole (PriLOSEC) 40 mg capsule 02/11/2021 Active oxyCODONE-aceta minophen (PERCOCET) 7.5-325 mg per tablet 03/15/2021 Active multivitamin tablet Active metoprolol XL (TOPROL-XL) 25 mg extended release tablet 01/17/2021 Acti ve meloxicam (MOBIC) 15 mg tablet TAKE 1 TABLET BY MOUTH EVERY DAY NEEDED FOR CHRONIC PAIN 03/10/2021 Active Accu-Chek [place] Plus test strp strip 02/03/2021 Active buPROPion SR (WELLBUTRIN SR) 150 mg 12 hr tablet Take 150 mg by mouth 2 (two) times a day Active BD Alcohol Swabs pads, medicated 01/30/2021 Active ALPRAZolam (XANAX) 1 mg tablet TAKE 1 TABLET BY MOUTH THREE TIMES A DAY NEEDED FOR ANXIETY 03/03/2021 Active Active Problems Problem Noted Date Diagnosed Date Paresthesia of upper extremity 11/12/2016 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 Social History Tobacco Use Types Packs/Day Years Used Date Smoking Tobacco: Every Day Personal Safety Answer Date Recorded Getting School Help Needed Not on file 11/16 Comments Unknown Sex and Gender Information Value Date Recorded Sex Assigned at Not on file 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 Gender Identity Not on file Sexual Orientation Not on file Last Filed Vital Signs Vital Sign Reading Time Taken Comments Blood Pressure - - Pulse - - Temperature - - Respiratory Rate - - Oxygen Saturation - - Inhaled Oxygen Concentration - - Weight 97.5 kg (215 lb) 03/17/2021 7:55 AM CDT Height 170.2 cm (5' 7) 03/17/2021 7:55 AM CDT Body Mass Index 33.67 03/17/2021 7:55 AM CDT Plan of Treatment Not on file Insurance [employer] PPO [employer] P[employer] Care Teams Digital Forensics Investigator Relationship Specialty Start Date End Date Vahid Soria DO PCP - General Internal Medicine 07/23/20
--- OUTSIDE RECORDS SUMMARY | 2025-04-19 06:28 | XMS_ITS | Clinical Summary ---
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 7 Surgical History Surgery Date Site/Laterality Comments [place] UNLISTED PROCEDURE ABDOME N PERITONEUM & OMENTUM Hernia Repair - (Added by JANELLE Conv) KNEE SURGERY NERVE SURGERY GASTRIC BYPASS REVISION GASTRIC RESTRICTIVE PROCEDURE FOR MORBID OBESITY TUBAL LIGATION Medical History Medical History Date Comments Arthritis Anxiety Hypertension Obesity Osteoporosis Peptic ulceration Family History Medical History Relation Name Comments Cancer Father Lung cancer Father Family history of lung cancer - (Added by TW Conv) Arthritis Mother Cancer Mother Diabetes Mother Hypertension Mother Arthritis Sister Relation Name Status Comments Father Mother Sister Social History Tobacco Use Types Packs/Day Years Used Date Smoking Tobacco: Every Day Personal Safety Answer Date Recorded Getting School Help Needed Not on file 11/16 Comments Unknown Sex and Gender Information Value Date Recorded Sex Assigned at Not on file 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
--- OUTSIDE RECORDS SUMMARY | 2025-04-19 06:28 | XMS_ITS | Clinical Summary ---
Author Organization [facility] Address [address] [place] [address] Care Team Providers Care Record Keeper Name Role Phone Onel Best MD Primary Care Provider [phone] Source Comments [facility],non-owned Affiliates and Associated Physician Practices is amultiple site organization consisting of ambulatory clinics and hospital sitesin [place], [place], [place] and [place]. This disclosure is being madepursuant to the Care Everywhere program and may not contain all information available regarding this patient. Last updated 18.[facility] Allergies No known active allergies Medications * Be aware that medications may not be up to date on this document. Alwaysverify current medications with the patient. alprazolam (XANAX) 1 MG tablet Take 1 mg by mouth 3 times daily as needed for Anxiety. Active buPROPion SR 12hr (WELLBUTRIN-SR) 150 MG tablet Take 150 mg by mouth 2 times daily. Active sucralfate (CARAFATE) 1 GM tablet Take 1 g by mouth 3 times daily before meals. Active pantoprazole EC (PROTONIX) 40 MG tablet Take 40 mg by mouth 2 times daily. Take am of OR Active misoprostol (CYTOTEC) 100 MCG tablet Take 100 mcg by mouth 4 times daily. Active hydrocodone-acet aminophen solution (LORTAB) 7.5-500 MG/15ML solution Take 10-15 mL by mouth every 4 hours as needed for Pain. 240 ml 0 10/31/2009 Active hydrocodone-acet aminophen solution (LORTAB) 7.5-500 MG/15ML solution Take 10-15 mL by mouth every 4 hours as needed for Pain. 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 Gender Identity Not on file Sexual Orientation Not on file Last Filed Vital Signs Vital Sign Reading Time Taken Comments Blood Pressure 141/89 11/25/2009 8:14 AM PETROLEUM INSPECTOR Pulse 75 11/25/2009 8:14 AM PETROLEUM INSPECTOR Temperature 36.9 C (98.5 F) 11/25/2009 8:14 AM PETROLEUM INSPECTOR Respiratory Rate 14 11/25/2009 8:14 AM PETROLEUM INSPECTOR Oxygen Saturation 94% 10/31/2009 1:27 PM PETROLEUM INSPECTOR Inhaled Oxygen Concentration - - Weight 99.2 kg (218 lb 11.1 oz) 10/29/2009 8:29 AM PETROLEUM INSPECTOR Height 170.2 cm (5' 7.01) 10/30/2009 8:00 AM CS T Body Mass Index 34.24 10/29/2009 8:29 AM PETROLEUM INSPECTOR Plan of Treatment Health Maintenance Due Date Last Done Comments BONE DENSITY TESTING 1950 HEPATITIS C SCREENING 11/11/1966 DTAP/TDAP/TD VACCINES (1 - Tdap) 1967 PNEUMOCOCCAL VACCINE 50+ (1 of 2 - PCV) 1967 ZOSTER VACCINE (1 of 2) 1998 Respiratory Syncytial Virus (RSV) Vaccine Pt: or over 60 yrs (1 - 1-dose 75+ series) 2023 COVID-19 VACCINE (1 - 2023-2 5 season) 2024 DEPRESSION SCREENING 11/01/2024 INFLUENZA VACCINE (Season Ended) 2025 HEPATITIS B VACCINE Aged Out No longe r eligible based on patient's age to complete this topic HIB VACCINE Aged Out No longer eligi ble based on patient's age to complete this topic HPV VACCINE Aged Out No longer eligi ble based on patient's age to complete this topic MENINGOCOCCAL (Group B) VACC INE SHARED DECISION-MAKING Aged Out No longer eligibl e based on patient's age to complete this topic MENINGOCOCCAL GROUPS A/C/Y/W VACCINE Aged Out No longer eligible b ased on patient's age to complete this topic Insurance [facility] MEDICARE Member Subscriber Plan / Payer (Ef fective for All Dates) Name:Vu Mclain Relation to Subscriber:Self Name:VU MCLAIN Payer ID:[id number] (NAIC) Type:Medicare-Managed Care Address: [facility] CLAIMS [address] [place] [address] Advance Directives * Full Code (Latest Code Status on File) Date Activated Date Inactivated Comments 10/29/2009 2:50 PM 11/01/2009 2:49 AM Care Teams Record Keeper Relationship Specialty Start Date End Date Onel Best MD [address] [facility] [address] [place] [address] PCP - General 11/26/21
[2025-04-19 07:09] LABS: Basophils Percent Auto 0.6 % (0.2-1.2); Eosinophils Percent Auto 0.6 % (0-4.4); Hematocrit 41.5 % (37.0-47.0); Hemoglobin 13.8 g/dL (12.0-15.0); Immature Granulocyte Absolute 0.01 K/mm3 (0.00-0.031); Immature Granulocyte Percent A 0.2 % (0-0.5); Lymphocytes Absolute Auto 1.09 K/mm3 (0.9-3.2); Lymphocytes Percent Auto 23.5 % (18.3-44.2); Mean Corpuscular HGB Conc 33.3 g/dl (32-36); Mean Corpuscular Hemoglobin 34.7 pg (26-34); Mean Corpuscular Volume 104.3 fl (80-100); Mean Platelet Volume 11.3 fl (7.4-10.4); Monocytes Absolute Auto 0.5 K/mm3 (0.1-0.6); Monocytes Percent Auto 9.9 % (2.6-8.5); Neutrophils Percent Auto 65.2 % (45.5-73.1); Platelet Count Result 133 k/mm3 (150-375); Red Blood Count 3.98 M/mm3 (4.2-5.4); Red Cell Distribution Width 14.7 % (11.5-14.5); White Blood Count 4.6 K/mm3 (4.5-10.0)
[2025-04-19 07:18] LABS: Alanine Aminotransferase 26 U/L (6-35); Albumin Level 3.1 g/dL (3.5-5.1); Alkaline Phosphatase 120 U/L (38-126); Anion Gap 2 mmol/L (4-12); Aspartate Amino Transferase 48 U/L (14-36); Bilirubin,Total 0.7 mg/dL (0.2-1.3); Blood Urea Nitrogen 12 mg/dL (7-17); Calcium 8.5 mg/dL (8.4-10.2); Carbon Dioxide 26 mmol/L (22-30); Chloride 107 mmol/L (98-107); Estimated CRCL calculation 67 ml/min; Estimated Glomerular Filt Rate > 60; Glucose 95 mg/dL (65-110); Lipase 664 U/L (23-300); Sodium 135 mmol/L (137-145); Total Protein 5.3 g/dL (6.3-8.2)
--- NOTE | 2025-04-19 07:42 | ED_ITS ---
HPI - Abdominal Pain General Chief Complaint: Abdominal Pain Stated Complaint: fever, n/v, abd pain Time Seen by Provider: 04/19/25 07:26 History of Present Illness HPI narrative: Pt presents with epigastric abdominal pain described as buning constant since last night with nausea dn vomiting but no diarrhea. Pt has history of gastric bypass and recently discontinued weight loss injections. Pt has prior cholecystectomy. Pt has no history of pancreatitis. Pt denies black or bloody stools. Related Data Home Medications ?Medication ?Instructions ?Recorded ?Confirmed ?Last Taken ?Type multivitamin 1 cap PO DAILY 06/26/20 04/19/25 11/24/21 History calcium carbonate (Antacid Calcium) 215 mg PO TID 09/10/21 04/19/25 11/24/21 History hydrocodone 10 mg-acetaminophen 1 tablet PO Q6H PRN Pain, Moderate 11/14/21 04/19/25 04/18/25 History 325 mg tablet ropinirole 0.25 mg tablet 0.5 mg PO QHS 04/18/25 04/19/25 04/18/25 History Allergies Allergy/AdvReac Type Severity Reaction Status Date / Time No Known Allergies Allergy Verified 04/19/25 06:31 Review of Systems 2 Review of Systems: All systems reviewed & are unremarkable except as noted in HPI and below PMFSH Past Medical History Medical History Body mass index (bmi) 32.0-32.9, adult (10/07/16) 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, right, degenerative Hypoglycemia Lumbar degenerative disc disease Encounter for screening colonoscopy Abdominal cramping Family history of malignant neoplasm of colon in mother Epigastric pain Depression Chronic back pain Tobacco abuse Screening for osteoporosis Anxiety Carpal tunnel syndrome of left wrist Cataract of both eyes Depression Essential (primary) hypertension Gastroesophageal reflux disease Peripheral polyneuropathy Primary osteoarthritis of both knees Restless legs syndrome Vitamin B 12 deficiency Surgical History Surgical History Hx of gastric bypass Gastric bypass status for obesity History of bariatric surgery History of bariatric surgery Family History Family History Sibling Cerebrovascular accident Patient's brother is Acute myocardial infarction Mother Carcinoma of colon Patient's mother is Father Family history of lung cancer Patient's father is Other Depression Family history of arthritis Family history of malignant neoplasm Hypertension Social History Social History Smoking packs per day: 2 Smoking cigarettes per day: 40.0 Years smoked: 50 Smoking pack-years: 100.00 Smoking status: Current every day smoker Second hand tobacco smoke exposure: Yes Alcohol intake: never Substance use: former Substance use type: marijuana Do You Feel Safe in your Home?: Yes Lack of Transportation: No Lack of Food: Never True Current Housing: I Have Housing Concerned About Future Housing: No Difficulty Paying Gas/Electric Bills: No Difficulty Paying for Meds: No Currently Unemployed: No Education: High School Diploma/GED Difficulty w/ Childcare or Family Care: No Living arrangements: with family Occupation/Education: retired Gender identity (if verbalized by the patient): Female Spiritual care concerns: No Exam 2 Const: General: healthy appearing and no acute distress Nutritional Appearance: well nourished Orientation/consciousness: patient oriented x3 Limitations: no limitations Resp: Effort & Inspection: normal respiratory effort Auscultation: clear to auscultation bilaterally Cardio: Rate: regular rate Rhythm: regular rhythm GI: GI Palp: Yes Soft to palpation and Yes Tenderness to palpation present (GI) (epigastric) Auscultation: normal bowel sounds Back/Spine/Pelvis: Back: no CVA tenderness Skin: General skin exam: normal color Rashes: no rashes Wounds: no wounds Neuro: General: patient oriented x3, moves all extremities and no focal motor deficits Speech: normal speech Extrem: General: normal to inspection and no clubbing, cyanosis or edema Psych: Mental Status: mental status grossly normal Affect: normal affect Attitude: cooperative Course Vital Signs Vital signs: Vital Signs Temperature 98.4 F 04/19/25 06:29 Pulse Rate 82 04/19/25 06:29 Respiratory Rate 20 04/19/25 06:29 Blood Pressure 156/84 H 04/19/25 06:29 Pulse Oximetry 97 04/19/25 06:29 Oxygen Delivery Room Air 04/19/25 06:29 Temperature 97.4 F L 04/19/25 14:00 Pulse Rate 68 04/19/25 14:00 Respiratory Rate 14 04/19/25 14:00 Blood Pressure 147/58 H 04/19/25 14:00 Pulse Oximetry 97 04/19/25 14:00 Oxygen Delivery Room Air 04/19/25 15:18 MDM - Abdominal Pain MDM Narrative Medical decision making narrative: Pt presents with burning epigastric pain since last night. will get labs and CT and treat pain and nausea. Pt has elevated lipase remainder of labs and CT unremarkable. will admit with early pancreatitis. Discussed with Dr Brooks and agrees to admit. Differential Diagnosis Differential diagnosis: Likely abdominal pain, gastroenteritis, pancreatitis, small bowel obstruction and other (closed loop bowel obstruction ischemic bowel among others) Lab Data 04/19/25 07:00 04/19/25 07:00 Labs: Lab Results 04/19/25 04/19/25 Range/Units 07:00 07:28 WBC 4.6 (4.5-10.0) K/mm3 RBC 3.98 L (4.2-5.4) M/mm3 Hgb 13.8 (12.0-15.0) g/dL Hct 41.5 (37.0-47.0) % MCV 104.3 H (80-100) fl MCH 34.7 H (26-34) pg MCHC 33.3 (32-36) g/dl RDW 14.7 H (11.5-14.5) % Plt Count 133 L (150-375) k/mm3 MPV 11.3 H (7.4-10.4) fl Immature Gran % (Auto) 0.2 (0-0.5) % Neut % (Auto) 65.2 (45.5-73.1) % Lymph % (Auto) 23.5 (18.3-44.2) % [place] % (Auto) 9.9 H (2.6-8.5) % Eos % (Auto) 0.6 (0-4.4) % Baso % (Auto) 0.6 (0.2-1.2) % Lymph # (Auto) 1.09 (0.9-3.2) K/mm3 [place] # (Auto) 0.5 (0.1-0.6) K/mm3 Eos # (Auto) 0.0 (0-0.3) K/mm3 Baso # (Auto) 0.0 (0.0-0.1) K/mm3 Abs Immat Gran (auto) 0.01 (0.00-0.031) K/mm3 Absolute Neuts (auto) 3.0 (1.3-6.7) K/mm3 Absolute Nucleated RBC 0.000 (0.0-0.012) K/mm3 Nucleated RBC % 0.0 (0.0-0.2) % Sodium 135 L (137-145) mmol/L Potassium 4.0 (3.4-5.0) mmol/L Chloride 107 (98-107) mmol/L Carbon Dioxide 26 (22-30) mmol/L Anion Gap 2 L (4-12) mmol/L BUN 12 (7-17) mg/dL Creatinine 0.67 L (0.7-1.0) mg/dL Estim Creat Clear Calc 67 ml/min Estimated GFR > 60 (59 - ) Glucose 95 (65-110) mg/dL Calcium 8.5 (8.4-10.2) mg/dL Total Bilirubin 0.7 (0.2-1.3) mg/dL AST 48 H (14-36) U/L ALT 26 (6-35) U/L Alkaline Phosphatase 120 (38-126) U/L Total Protein 5.3 L (6.3-8.2) g/dL Albumin 3.1 L (3.5-5.1) g/dL Lipase 664 H (23-300) U/L Urine Color Yellow (Yellow) Urine Appearance Cloudy H (Clear) Urine pH 8.0 (5.0-9.0) Ur Specific [place] 1.016 (1.001-1.035) Urine Protein Negative (Negative) mg/dL Urine Glucose (UA) Negative (Negative) mg/dL Urine Ketones Trace H (Negative) mg/dL Ur Blood (Man) Negative (Negative) Urine Nitrate Negative (Negative) Urine Bilirubin Negative (Negative) Urine Urobilinogen 1.0 (<2.0) mg/dL Add Ur Microanalysis Reviewed Leukocyte Esterase Rfl Negative (Negative) JONO/UL Urine RBC 0-2 (0-2) /hpf Urine WBC 0-5 (0-3) /hpf Ur Squamous Epith Cells None seen (Few) /hpf Amorphous Sediment Moderate H (None) Urine Bacteria None seen /hpf Urine Casts 0-2 Imaging Data Radiologist's impression: ITS Impressions Abdomen/Pelvis CT 04/19/25 08:26 IMPRESSION: 1. No evidence of appendicitis, diverticulitis or intestinal obstruction. 2. Hepatomegaly with fat infiltration of the liver. 3. Slightly atrophic pancreas. Discharge Plan Discharge Clinical Impression: Pancreatitis Patient Disposition: Still a Patient Condition: Stable
[2025-04-19 07:43] LABS: Add Urine Microscopic? YES; Amorphous Sediment Urine Moderate; Appearance Urine Cloudy (Clear); Bacteria Urine None Seen /hpf; Bilirubin Urine Negative (Negative); Blood Urine Negative (Negative); Color Urine Yellow (Yellow); Glucose Urine UA Negative (Negative); Ketones Urine Trace mg/dL (Negative); Leukocyte Esterase Ur Negative LEU/UL (Negative); Need Manual Microscopic Reviewed; Nitrate Urine Negative (Negative); Non Pathogenic Casts 0-2; Protein Urine Negative (Negative); RBC Urine 0-2 /hpf (0-2); Specific Grav Ur 1.016 (1.001-1.035); Squamous Epithelial Cell Urine None Seen /hpf (Few); WBC Urine 0-5 /hpf (0-3)
--- OUTSIDE RECORDS SUMMARY | 2025-04-19 07:58 | XMS_ITS | Clinical Summary ---
Author Organization [facility] Address [address] [place] [address] Care Team Providers Care Box Sealing Machine Feeder Name Role Phone Onel Best MD Primary Care Provider [phone] Source Comments [facility],non-owned Affiliates and Associated Physician Practices is amultiple site organization consisting of ambulatory clinics and hospital sitesin [place], [place], [place] and [place]. This disclosure is being madepursuant to the Care Everywhere program and may not contain all information available regarding this patient. 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 Gender Identity Not on file Sexual Orientation Not on file Last Filed Vital Signs Vital Sign Reading Time Taken Comments Blood Pressure 141/89 11/25/2009 8:14 AM MAT CLEANING MACHINE OPERATOR Pulse 75 11/25/2009 8:14 AM MAT CLEANING MACHINE OPERATOR Temperature 36.9 C (98.5 F) 11/25/2009 8:14 AM MAT CLEANING MACHINE OPERATOR Respiratory Rate 14 11/25/2009 8:14 AM MAT CLEANING MACHINE OPERATOR Oxygen Saturation 94% 10/31/2009 1:27 PM MAT CLEANING MACHINE OPERATOR Inhaled Oxygen Concentration - - Weight 99.2 kg (218 lb 11.1 oz) 10/29/2009 8:29 AM MAT CLEANING MACHINE OPERATOR Height 170.2 cm (5' 7.01) 10/30/2009 8:00 AM CS T Body Mass Index 34.24 10/29/2009 8:29 AM MAT CLEANING MACHINE OPERATOR Plan of Treatment Health Maintenance Due Date [...] patient's age to complete this topic Insurance [facility] MEDICARE Advance Directives * Full Code (Latest Code Status on File) Date Activated Date Inactivated Comments 10/29/2009 2:50 PM 11/01/2009 2:49 AM Care Teams Box Sealing Machine Feeder Relationship Specialty Start Date End Date Onel Best MD [address] [facility] [address] [place] [address] PCP - General 11/26/21
--- OUTSIDE RECORDS SUMMARY | 2025-04-19 07:58 | XMS_ITS | Referral Summary ---
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
--- OUTSIDE RECORDS SUMMARY | 2025-04-19 07:58 | XMS_ITS | Clinical Summary ---
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
--- OUTSIDE RECORDS SUMMARY | 2025-04-19 07:58 | XMS_ITS | Data Portability ---
Author Organization [facility] Address [address] [place] [address] Care Team Providers Care Industrial Economics Teacher Name Role Phone SÁNCHEZ PICKARD Primary Care Provider [phone] SÁNCHEZ PICKARD Primary Care Provider Assessment Encounter Date Assessment Date Assessment LastModified by Organization Details LastModified Time 12/03/2020 12/03/2020 reassured re lesion, benign screening mammo overdue, ordered and encouraged will schedule WWE [email or web address] Not available 12/04/2020 17:51:52 11/10/2022 11/10/2022 diflucan x2 given many risk factors also has atrophy so if sx don't resolve, estrace cream coconut oil prn strongly encouraged mammogram and WWE [email or web address] Not available 11/11/2022 09:40:29 11/30/2022 11/30/2022 will start estrace for atrophy. pea size nightly for 30d, then 3x per week, FU 2 mos Not available 11/30/2022 15:49:39 Plan of Treatment Reminders Order Date Submit Date Provider Last Modified By Organization Details Last Modified Time Details Appointments None recorded. Lab None recorded. Referral None recorded. Procedures None recorded. Surgeries None recorded. Imaging MAMMO, screening, bilateral 2020 021 OCTAVIO Not available 05:01:08 Medication Orders Estrace 0.01% (0.1 mg/gram) vaginal cream 2022 023 OCTAVIO [id number], [address], [place], [address], 3 15:46:57 Diflucan 150 mg tablet 2022 023 [email or web address] [id number], [address], [place], [address], 3 09:39:04 Patient TargetsNo targets recorded. Patient InstructionsNo instructions recorded. Reason for Referral None Reported. Problems Name Problem SNOMED Code Status Onset Date Resolution Date Notes Provider Name and Address Organization Details Recorded Time Type 2 diabetes mellitus 22611092 Active 2020 Christine Bass MD [address], [place], [address], [facility] 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 3 19:34:45 Problem Notes None recorded. Procedures Surgical History Date Name Laterality Status Provider Name and Address Organization Details Recorded Time 11/01/19 17 procedure on elbow completed Afuacamron Landon [facility] 12/18/2020 11:47:44 11/01/19 16 decompression of ulnar nerve completed Afuacamron Landon [facility] 12/18/2020 11:50:30 11/01/19 14 exploratory laparotomy completed Afuacamron Landon [facility] 12/18/2020 11:51:49 11/01/19 09 reconstruction of gastrostomy completed Afuacamron Landon [facility] 12/18/2020 11:44:58 11/01/[address] [facility] 12/18/2020 11:42:34 11/01/19 02 reconstruction of gastrostomy completed [facility] 12/18/2020 11:44:52 11/01/19 02 extracorporeal shockwave lithotripsy of the gallbladder completed [facility] 12/18/2020 11:52:19 11/01/[address] [facility] 12/18/2020 11:51:28 11/01/[address] [facility] 12/18/2020 11:43:00 Imaging Results None recorded. Procedure Notes None recorded. Medical Equipment None Reported. Allergies No known drug allergies Medications Name Sig Start Date Stop Date Status Note LastModified by Organization Details LastModified Time celecoxib 200 mg capsule TAKE 1 CAPSULE BY MOUTH TWICE DAILY NEEDED active Not Available Not Available No t Available cyclobenzap rine 10 mg tablet TAKE 1 TABLET BY MOUTH EVERY 8 TO 12 HOURS 11/10 completed Not Available Not Available Not Available BD Alcohol Swabs active Not Available Not Available Not Available alprazolam 1 mg tablet TAKE 1 TABLET BY MOUTH THREE TIMES A DAY NEEDED FOR ANXIETY active Not Available Not Available No t Available meloxicam 15 mg tablet TAKE 1 TABLET BY MOUTH EVERY DAY NEEDED FOR CHRONIC PAIN 11/10 completed Not Available Not Available Not Available phenazopyri dine 200 mg tablet TAKE 1 TABLET BY MOUTH THREE TIMES A DAY FOR PAIN AFTER MEALS 11/10 completed Not Available Not Available Not Available Diflucan 150 mg tablet Take 1 tablet every 72 hours by oral route for 6 days. 2022 active Not Available Not Available Not Avai lable Accu-Chek Softclix Lancets TEST BLOOD SUGAR TWICE DAILY active Not Available Not Available No t Available ciprofloxac in 500 mg tablet TAKE 1 TABLET BY MOUTH EVERY 12 HOURS X7 DAYS 11/10 completed Not Available Not Available Not Available hydrocodone 10 mg-acetamin ophen 325 mg tablet TAKE 1 TABLET BY MOUTH 4 TIMES A DAY NEEDED FOR RADICULOP ATHY, LUMBAR REGION active Not Available Not Available No t Available omeprazole 40 mg capsule,del ayed release TAKE 1 CAPSULE BY MOUTH EVERY DAY active Not Available Not Available No t Available pramipexole 0.5 mg tablet 11/10 completed Not Available Not Available Not Available dicyclomine 20 mg tablet TAKE 1 TABLET BY MOUTH 4 TIMES A DAY NEEDED FOR ABDOMINAL DISCOMFOR T 11/10 completed Not Available Not Available Not Available hydrocodone 7.5 mg-acetamin ophen 325 mg tablet TAKE 1 TABLET BY MOUTH EVERY 6 8 HOURS NEEDED active Not Available Not Available No t Available cyanocobala min (vit B-12) 1,000 mcg/mL injection solution INJECT 1 ML INTRAMUSC ULARY TWICE A WEEK 11/10 completed Not Available Not Available Not Available ropinirole 0.5 mg tablet TAKE 1 TABLET BY MOUTH TWICE A DAY 11/10 completed Not Available Not Available Not Available buspirone 7.5 mg tablet TAKE 1 TABLET BY MOUTH TWICE A DAY active Not Available Not Available No t Available triamterene 37.5 mg-hydrochl orothiazide 25 mg tablet active Not Available Not Available Not Available furosemide 20 mg tablet TAKE 1 TABLET BY MOUTH EVERY MORNING NEEDED FOR EDEMA 11/10 completed Not Available Not Available Not Available metoprolol succinate ER 25 mg tablet,exte nded release 24 hr TAKE 1 TABLET BY MOUTH EVERY DAY 11/10 completed Not Available Not Available Not Available estradiol 0.01% (0.1 mg/gram) vaginal cream APPLY PEA SIZED AMOUNT TO VULVA AND VAGINAL INTROITUS NIGHTLY FOR 30 DAYS, THEN 3 TIMES PER WEEK. 2023 active Not Available Not Available Not Avai lable nortriptyli ne 50 mg capsule TAKE 1 TO 2 CAPSULES BY MOUTH EVERY DAY AT BEDTIME NEEDED 11/10 completed Not Available Not Available Not Available metoprolol tartrate 25 mg tablet 11/10 completed Not Available Not Available Not Available nitrofurant oin monohydrate /macrocryst als 100 mg capsule TAKE 1 CAPSULE BY MOUTH EVERY 12 HOURS FOR 7 DAYS WITH MEAL/FOOD 11/10 completed Not Available Not Available Not Available pregabalin 75 mg capsule TAKE 1 CAPSULE 3 TIMES DAILY 11/10 completed Not Available Not Available Not Available pregabalin 100 mg capsule TAKE 1 CAPSULE BY MOUTH THREE TIMES A DAY 11/10 completed Not Available Not Available Not Available pregabalin 150 mg capsule TAKE 1 CAPSULE BY MOUTH THREE TIMES A DAY active Not Available Not Available No t Available Contour Test Strips USE TO TEST TWICE DAILY active Not Available Not Available No t Available BD Integra Syringe 3 mL 25 gauge x 1 USE TO INJECT 1ML VITAMIN B-12 MONTHLY active Not Available Not Available No t Available Fluzone High-Dose Quad 2020-21 (PF) 240 mcg/0.7 mL IM syringe PHARMACY ADMINIST[facility] RED active Not Available Not Available No t Available Flowflex COVID-19 Antigen Home Test kit USE DIRECTED 11/10 completed Not Available Not Available Not Available Contour Next Gen Meter USE TO CHECK BLOOD SUGAR TWICE A DAY active Not Available Not Available No t Available Vitals Date Recorded Body height Body mass index (BMI) Body weight Systolic blood pressure Diastolic blood pressure Provider Name and Address Organization Details Last Updated DateTime 11/10/2022 168.28 cm 29.6 kg/m2 41913.59 g 142 mm[Hg] 82 mm[Hg] [facility] 3 15:34:50 Date Recorded Body height Body mass index (BMI) Body weight Systolic blood pressure Diastolic blood pressure Systolic blood pressure Diastolic blood pressure Provider Name and Address Organization Details Last Updated DateTime 3 168.28 cm 30 kg/m2 71823.7 7 g 162 mm[Hg] 87 mm[Hg] 142 mm[Hg] 90 mm[Hg] [facility] 3 15:33:50 Date Recorded Body height Body mass index (BMI) Body weight Systolic blood pressure Diastolic blood pressure Provider Name and Address Organization Details Last Updated DateTime 12/03/2020 168.28 cm 36.5 kg/m2 579130.0 6 g 126 mm[Hg] 84 mm[Hg] Afua Landon [facility] 1 11:55:00 Social History Question Answer Notes LastModified by Organizat ion Details LastModified Time Tobacco Smoking Status Current Every Day Smoker Afua Landon null, [facility] 12/18/2020 11:42:10 What Is Your Level Of Caffeine Consumption? Occasional Information not available 12/18/2020 What Is Your Current Pack Years? [email or web address] rs [email or web address] Information not available 12/18/2020 How Much Tobacco Do You Smoke? 1 PPD [email or web address] Information not available 12/18/2020 Has Tobacco Cessation Counseling Been Provided? No [email or web address] Information not available 12/18/2020 How Many Years Have You Smoked Tobacco? 40 [email or web address] Information not available 12/18/2020 Sex: Unknown Functional Status Question Answer Note LastModified by Organizat ion Details LastModified Time Do you use any illicit or recreational drugs? No Information not available 12/18/2020 Do you or have you ever used any other forms of tobacco or nicotine? No [email or web address] Information not available 12/18/2020 What is your level of alcohol consumption? None [email or web address] Information not available 12/18/2020 What is your exercise level? Occasional Information not available 12/18/2020 Mental Status None recorded. Family History Relationship Description Onset Age of this Age Resolved Age Notes LastModified by Organization Details LastModified Time Sister Malignant tumor of breast [email or web address] Not available 12/18 11:40:18 Brother Heart disease [email or web address] Not available 12/18 11:40:29 Brother Myocardial infarction [email or web address] Not available 12/02 11:40:42 Brother Diabetes mellitus Not available 12/18 11:40:58 Brother Drug overdose Not available 2022 15:22:29 Mother Diabetes mellitus [email or web address] Not available 12/18 11:40:58 Father Malignant neoplasm of lung [email or web address] Not available 12/18 11:41:27 Medical History Condition Response Diabetes Y Breast Problem Y Acid Reflux (GERD) Y Fibromyalgia Y Hypertension Y GI Problems Y Gynecological History Statement/Question Response Date of Last Pap Smear Current Control Method Tubal Ligat ion Date of LMP 11/01/1993 LMP Approximate Obstetrics History GPAL:G 2 P 2 0 0 2 Type Value Full Term 2 Living 2 Total 2 Past Encounters Encounter ID Performer Location Encounter Start Date Encounter Closed Date Diagnosis/Indication Diagnosis SNOMED-CT Code Diagnosis ICD10 Code Diagnosis Note [id number] Christine Bass MD [facility] [address],[place] [address] 12/03/2020 11:22:17 12/05/2020 14:08:46 Superficial folliculitis 827938234 L73.9 Screening mammography 24 932162 Z12.31 [id number] Christine Bass MD [facility] [address],[place] [address] 11/10/2022 15:20:10 11/11/2022 15:02:11 Candidiasis of vulva 5910948 B37.31 Atrophic vaginitis 38244 000 N95.2 [id number] Christine Bass MD [facility] [address],[place] [address] 11/30/2022 15:14:59 11/30/2022 15:52:49 Atrophic vaginitis 47546821 N95.2 Health Concerns Section Related Observation LastModified by Organization Detai ls LastModified Time None Recorded Concern Status LastModified by Organization Details LastModified Time None Recorded Advance Directives Directive None Recorded Payers Insurance Date Sequence Insurance Name Policy Number Policy Elise Covered Member ID Elise Member ID Guarantor Name 11/09/2022 1 [employer] (MEDICARE REPLACEMENT/AD VANTAGE - HMO) [id number] Felicity Dunbar [id number] Felicity Dunbar 01/26/2023 1 [facility] (MEDICARE REPLACEMENT HMO) [id number] Felicity Dunbar [id number] Felicity Dunbar Notes Date Note Type Note Provider Name and Address Organization Details Recorded Time 12/03/2020 text/html Patient is a 70y o who presents for breast problem. She is not sexually active. Menses:menopause Concerns:5 dyas ago had a tender sore on left breast. came to a head, drained for a couple days, now pretty much gone. last WWE:10 years, mammo 5 years Depression:denies Domestic violence:denies Christine Bass MD [address], [place], [address], [facility] 12/04/2020 17:52:25 11/10/2022 text/html Pt is a 71yo here complaining of symptoms of a vaginal infection. Symptoms include burning and itching for about a week. She had a UTI about a month ago and it required 2 courses of antibiotics to resolve. She is a smoker and a diabetic. No bleeding. NO odor. Not sexually active, declines std testing. Additional concerns: Last annual exam: 11 years. never got mammo after last visit because she got Guillan Mckenna from the COVID vaccine and ended up in rehab and still has weakness of BLE. Christine Bass MD [address], [place], [address], [facility] 11/11/2022 09:40:47 11/30/2022 text/html Here for persistent vulvitis sx. treated for yeast 11/10, improved for a few days, then got worse again, yesterday after she wiped started bleeding a little on left side of inner labia. always feels irritated. Christine Bass MD [address], [place], [address], [facility] 11/30/2022 15:49:52 OBGyn Episode Ob Episode Information Episode Created Date Number of Fetuses Patient Bloodtype Patient rh Status Prepregnancy Weight lbs Domestic Partner Domestic Partner Phone Father Name Case Loader Operator Status 12/03/19 21 1 CLOSED Fetus Data First Name Last Name Admitted to NICU Weight (g) Sex Living Outcome Pediatric Complications Fetus ID Race Codes Race Delivery Type 3231.84 3 M Full Term [id number] Vaginal Delivery Arnulfo Calculation Initial Arnulfo Date Initial Exam Date Initial Exam Provider Initial Ultrasound Date Last Menstrual Period Date Ultra Sound Weeks Gestation 0 Eighteen To Twenty Week Arnulfo Update Ultra Sound Date Fundal Height At Umbil Quickening Date Ultra Sound Latest Weeks Gestation Final Arnulfo Confirmed By Final Arnulfo Confirmed Date Final Arnulfo Date Ultra Sound Latest Days Gestation 0 0 Menstrual History Last Menstrual Date Menses Monthly On Bcp Conception Prior Menses Frequency Hcg Plus Date Menarche Onset Age Delivery Information Delivery Date Delivery Type Labor Anesthesia Weeks Gestation Incision Type Labor Labor Length Hrs Delivered By Post Complications Tubal Sterilization Discharge Date Comments 1 40 Discharge Information Feeding Method Contraceptive Method Maternal HG B and HCT Levels Ob Episode Information Episode Created Date Number of Fetuses Patient Bloodtype Patient rh Status Prepregnancy Weight lbs Domestic Partner Domestic Partner Phone Father Name Case Loader Operator Status 12/03/19 21 1 CLOSED Fetus Data First Name Last Name Admitted to NICU Weight (g) Sex Living Outcome Pediatric Complications Fetus ID Race Codes Race Delivery Type 3600.15 [id number] F Full Term [id number] Vaginal Delivery Arnulfo Calculation Initial Arnulfo Date Initial Exam Date Initial Exam Provider Initial Ultrasound Date Last Menstrual Period Date Ultra Sound Weeks Gestation 0 Eighteen To Twenty Week Arnulfo Update Ultra Sound Date Fundal Height At Umbil Quickening Date Ultra Sound Latest Weeks Gestation Final Arnulfo Confirmed By Final Arnulfo Confirmed Date Final Arnulfo Date Ultra Sound Latest Days Gestation 0 0 Menstrual History Last Menstrual Date Menses Monthly On Bcp Conception Prior Menses Frequency Hcg Plus Date Menarche Onset Age Delivery Information Delivery Date Delivery Type Labor Anesthesia Weeks Gestation Incision Type Labor Labor Length Hrs Delivered By Post Complications Tubal Sterilization Discharge Date Comments 4 40 Discharge Information Feeding Method Contraceptive Method Maternal HG B and HCT Levels
[2025-04-19] MEDS: PANTOPRAZOLE SODIUM IV 40 MG VIAL IV PUSH (08:01)
[2025-04-19] MEDS: HYDROmorphone HCL INJ (*CRX) 2 MG/ML VIAL 1 MG IV PUSH (08:03)
[2025-04-19] MEDS: SODIUM CHLORIDE 0.9% IV 1,000 ML 999 ML IV CONT (08:03)
[2025-04-19] MEDS: ONDANSETRON INJ 4 MG/2 ML VIAL IV PUSH ×3 (08:03→13:36)
[2025-04-19] MEDS: DEXTROSE 5%/0.45% SOD CHL 1,000 ML 100 ML IV CONT (11:00)
[2025-04-19] MEDS: HYDROmorphone HCL INJ (*CRX) 2 MG/ML VIAL 0.5 MG IV PUSH ×2 (13:34→16:36)
--- NOTE | 2025-04-19 13:47 | ADMGEN ---
This patient, Vicente Dunbar, was admitted to [facility] Room 300-01. Patient/family oriented to hospital policies and general routines including ID bracelet, bed and alarms, visiting hours, pain management, procedures, bathroom and other care routines, personal items, smoking policy, room service/diet, and visiting hours. Information on how to activate the Rapid Response Team has been discussed. Patient/Family are encouraged to report perceived risks to care and to ask questions if they do not understand what they are told or what they should do.
--- NOTE | 2025-04-19 15:52 | P.HP_ITS ---
H&P: HPI History of Present Illness Date/Time: 04/19/25 15:52 Chief Complaint: Abdominal pain nausea Narrative: 74-year-old female with past medical history of gastric bypass,, complains of abdominal pain nausea vomiting. Is unclear patient has abdominal pain or not. To a provider she says no she does not have abdominal pain she does not when she is here to others she says she is acute abdominal pain. Patient claims that the abdominal pain is severe in nature causes nausea and vomiting and dry heaves. She states that when she has the Dilaudid has no abdominal pain and is likely why she did have abdominal pain when other provider was in the room. Patient states the nausea vomiting and abdominal pain started yesterday. Lab work showed sodium of 135, anion gap of 2, creatinine of 0.67, AST of 48, li pase of 664, UA is negative for infection. CT abdomen pelvis show hepatomegaly with fatty liver infiltrates. Slight atrophic pancreas. No evidence of appendicitis diverticulitis or small intestine obstruction. Patient being admitted for possible pancreatitis. Review of Systems Review of Systems: 12 systems were reviewed and are negativ e except for as per HPI. 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, right, degenerative Hypoglycemia Lumbar degenerative disc disease Encounter for screening colonoscopy Abdominal cramping Family history of malignant neoplasm of colon in mother Epigastric pain Depression Chronic back pain Tobacco abuse Screening for osteoporosis Anxiety Carpal tunnel syndrome of left wrist Cataract of both eyes Depression Essential (primary) hypertension Gastroesophageal reflux disease Peripheral polyneuropathy Primary osteoarthritis of both knees Restless legs syndrome Vitamin B 12 deficiency Surgical History Surgical History Hx of gastric bypass Gastric bypass status for obesity History of bariatric surgery History of bariatric surgery Family History Family History Sibling Cerebrovascular accident Patient's brother is Acute myocardial infarction Mother Carcinoma of colon Patient's mother is Father Family history of lung cancer Patient's father is Other Depression Family history of arthritis Family history of malignant neoplasm Hypertension Social History Social History Smoking packs per day: 2 Smoking cigarettes per day: 40.0 Years smoked: 50 Smoking pack-years: 100.00 Smoking status: Current every day smoker Second hand tobacco smoke exposure: Yes Alcohol intake: never Substance use: former Substance use type: marijuana Do You Feel Safe in your Home?: Yes Lack of Transportation: No Lack of Food: Never True Current Housing: I Have Housing Concerned About Future Housing: No Difficulty Paying Gas/Electric Bills: No Difficulty Paying for Meds: No Currently Unemployed: No Education: High School Diploma/GED Difficulty w/ Childcare or Family Care: No Living arrangements: with family Occupation/Education: retired Gender identity (if verbalized by the patient): Female Spiritual care concerns: No Meds Home Medications and Allergies Home Medications ?Medication ?Instructions ?Recorded ?Confirmed ?Type multivitamin 1 cap PO DAILY 06/26/20 04/19/25 History calcium carbonate (Antacid Calcium) 215 mg PO TID 09/10/21 04/19/25 History hydrocodone 10 mg-acetaminophen 1 tablet PO Q6H PRN Pain, Moderate 11/14/21 04/19/25 History 325 mg tablet omeprazole 40 mg capsule,delayed See Rx Instructions .Route 02/04/23 04/19/25 Rx release .COMPLEX #90 caps semaglutide (weight loss) 0.25 0.25 mg (0.5 mL) subcut WEEKLY #2 07/27/24 04/19/25 Rx mg/0.5 mL subcutaneous pen mL injector (Wegovy) metoprolol succinate 25 mg See Rx Instructions .Route 01/29/25 04/19/25 Rx tablet,extended release 24 hr .COMPLEX #90 tabs alprazolam 1 mg tablet 1 mg PO TID PRN anxiety #90 tabs 02/22/25 04/19/25 Rx blood-glucose meter (OneTouch #1 ea 03/01/25 04/19/25 Rx Verio Flex Meter) pregabalin 300 mg capsule 300 mg PO QHS #30 caps 03/07/25 04/19/25 Rx pregabalin 150 mg capsule 150 mg PO BID #60 caps 04/03/25 04/19/25 Rx furosemide 40 mg tablet 40 mg PO QAM #90 tabs 04/18/25 04/19/25 Rx iron,carbonyl 65 mg-vitamin C 125 1 tablet PO DAILY #90 tabs 04/18/25 04/19/25 Rx mg tablet,delayed release (Vitron-C) magnesium citrate 100 mg capsule 200 mg (2 x 100 mg) PO QHS #120 04/18/25 04/19/25 Rx caps potassium chloride 20 mEq/15 mL 20 meq (15 mL) PO DAILY #1,200 mL 04/18/25 04/19/25 Rx oral liquid ropinirole 0.25 mg tablet 0.5 mg PO QHS 04/18/25 04/19/25 History Allergies Allergy/AdvReac Type Severity Reaction Status Date / Time No Known Allergies Allergy Verified 04/19/25 06:31 Vital Signs Vital Signs - 24 hr 04/19/25 06:29 04/19/25 06:46 04/19/25 06:56 Temperature 98.4 F 98.1 F Pulse Rate 82 77 Respiratory Rate 20 14 Blood Pressure 156/84 H 122/73 122/73 Pulse Oximetry 97 96 97 Oxygen Delivery Room Air 04/19/25 09:38 04/19/25 10:49 04/19/25 11:29 Temperature 98.2 F Pulse Rate 71 69 65 Respiratory Rate 16 23 H 13 Blood Pressure 122/67 116/64 122/57 L Pulse Oximetry 95 96 95 Oxygen Delivery 04/19/25 14:00 04/19/25 15:18 Temperature 97.4 F L Pulse Rate 68 Respiratory Rate 14 Blood Pressure 147/58 H Pulse Oximetry 97 Oxygen Delivery Room Air Exam Narrative: General: well appearing, appears stated age. HEENT: normocephalic, atraumatic. Mucous membranes moist. EOMI, PERRLA, bilateral sclera anicteric, no conjunctival injection. Neck supple without JVD, lymphadenopathy, or bruit. Respiratory: clear to ascultation bilaterally. No rales/rhonic/wheezes. Cardiovascular: Regular rate and rhythm, normal S1-S2 upon ascultation. No murmurs, rubs, or clicks. PMI is nondisplaced, capillary refill less than 3 second. Abdomen: Soft, round, no pulsatile masses, nondistended and nontender. No rebound, no guarding. No CVA tenderness, no hepatosplenomegaly. Bowel sounds present to all four quadrants. No high pitch or tinkling sounds, resonant to percussion. Extremities: No cyanosis, clubbing, or edema present. Pulses are palpable 2/2. Active ROM to all four extremities. Neuro: Alert and orientated x 4. PERRLA. Cranial nerves 2-12 intact without focal deficit. Skin: Warm, dry, and intact, without rash, erythema, or lesion. Psych: pleasant, cooperative, normal speech, normal affect, no hallucinations, no dysarthia H&P: Results Labs Labs: Short CBC 04/19/25 Range/Units 07:00 WBC 4.6 (4.5-10.0) K/mm3 Hgb 13.8 (12.0-15.0) g/dL Hct 41.5 (37.0-47.0) % Plt Count 133 L (150-375) k/mm3 BMP 04/19/25 07:00 Sodium 135 L Potassium 4.0 Chloride 107 Carbon Dioxide 26 BUN 12 Creatinine 0.67 L Glucose 95 Calcium 8.5 Liver Function 04/19/25 Range/Units 07:00 Total Bilirubin 0.7 (0.2-1.3) mg/dL AST 48 H (14-36) U/L ALT 26 (6-35) U/L Alkaline Phosphatase 120 (38-126) U/L Albumin 3.1 L (3.5-5.1) g/dL Urine 04/19/25 Range/Units 07:28 Urine Color Yellow (Yellow) Urine Appearance Cloudy H (Clear) Urine pH 8.0 (5.0-9.0) Ur Specific [place] 1.016 (1.001-1.035) Urine Protein Negative (Negative) mg/dL Urine Glucose (UA) Negative (Negative) mg/dL Assessment and Plan Assessment and plan (1) Acute abdominal pain: Code(s): R10.9 - Unspecified abdominal pain Status: Acute Assessment and Plan: IV pain meds while NPO Exam is benign (2) Pancreatitis: Code(s): K85.90 - Acute pancreatitis without necrosis or infection, unspecified Status: Acute Assessment and Plan: Possible pancreatitis, CT shows slightly atrophic pancreas, lipase 664 LR at 200 IV pain medications Patient is on home oral Lasix she may need IV Lasix due to aggressive fluid hydration (3) Anxiety: Code(s): F41.9 - Anxiety disorder, unspecified Status: Acute Assessment and Plan: Patient is extremely anxious and crying and asking frequently for Dilaudid, doing much better now that her home Xanax has been ordered Home Xanax, pregabalin, Requip reordered (4) Elevated liver enzymes: Code(s): R74.8 - Abnormal levels of other serum enzymes Status: Acute Assessment and Plan: Repeat CMP tomorrow Quality VTE Prophylaxis VTE prophylaxis: mechanical ordered and pharmacologic ordered Hospitalist MIPS Advance Care Plan I have confirmed that the patient's Advanced Care Plan is present, code status is documented, or surrogate decision maker is listed in patient medical record.: Yes Medication Reconciliation I have utilized all available resources to obtain, update and review the patients current medications (includes all prescriptions, OTC, herbals, cannabis, and nutritional supplements).: Yes
[2025-04-19] MEDS: ALPRAZolam (*CRX) 0.5 MG TABLET 1 MG PO (17:28)
[2025-04-19] MEDS: PREGABALIN (*CRX) 75 MG CAPSULE 150 MG PO (17:29)
[2025-04-19] MEDS: LACTATED RINGERS 1,000 ML 200 ML IV CONT (18:40)
[2025-04-19 18:47] LABS: Glucose Point of Care 87 mg/dl (65-105)
--- NOTE | 2025-04-19 19:51 | PC.NURSE ---
On 04/19/25, the PARTNERSHIP MARKETING MANAGER, [Genie BOYLE ], provided care and completed [employer] documentation on this patient. I have reviewed the PARTNERSHIP MARKETING MANAGER's documentation and agree with the findings.
[2025-04-19] MEDS: PREGABALIN (*CRX) 75 MG CAPSULE 300 MG PO (21:25)
[2025-04-19] MEDS: rOPINIRole HCL 0.5 MG TABLET PO (21:26)
--- NOTE | 2025-04-20 | ECHO_ITS ---
Patient Info Name: Felicity Dunbar Age: 74 years : 1950 Gender: Female Ht: 67 in Wt: 181 lbs BSA: 1.99 m2 HR: 78 bpm BP: 128 / 57 mmHg Heart Rhythm: Sinus Rhythm Technical Quality: Good Exam Date: 04/20/2025 11:45 AM Patient Status: I Admit Date: 04/20/2025 Exam Type: CA echo doppler color flow Complete two-dimensional, color flow and Doppler transthoracic echocardiogram is performed. Staff Referring Physician: Suleman Andujar Religious Assistant: Anali Simeon Attending Provider: Venita Eubanks Summary 1. Complete two-dimensional, color flow and Doppler transthoracic echocardiogram is performed. 2. Left ventricular chamber dimension is normal. 3. Left ventricular systolic function is normal, estimated at 60-65. 4. The left ventricular diastolic function is abnormal. 5. E/e' 13 is mildly elevated. 6. Right atrial chamber dimension is mildly enlarged. 7. There is mild aortic valve sclerosis. 8. The mitral valve has a mildly calcified annulus. 9. There is mild tricuspid valve regurgitation. 10. No pulmonary hypertension, estimated pulmonary arterial systolic pressure is 38 mmHg. Left Ventricle E/e' 13 is mildly elevated. Left ventricular chamber dimension is normal. Left ventricular systolic function is normal, estimated at 60-65. The left ventricular diastolic function is abnormal. Right Ventricle Right ventricular chamber dimension is normal. Right ventricular systolic function is normal and with normal TAPSE 2.3 cm. Left Atria Left atrial chamber dimension is normal. Right Atria Right atrial chamber dimension is mildly enlarged. Aortic Valve The aortic valve is trileaflet. There is mild aortic valve sclerosis. There is no aortic valve stenosis. There is no aortic valve regurgitation. Pulmonic Valve There is no pulmonic regurgitation. Mitral Valve The mitral valve has a mildly calcified annulus. There is no mitral valve stenosis. There is no mitral valve regurgitation. Tricuspid Valve There is mild tricuspid valve regurgitation. No pulmonary hypertension, estimated pulmonary arterial systolic pressure is 38 mmHg. Pericardium/Pleural There is no pericardial effusion. Inferior Vena Cava Normal inferior vena cava with >50% collapse upon inspiration consistent with normal right atrial pressure, 5 mmHg. Aorta The aortic root size at the sinus of Valsalva is normal. Left Ventricular Outflow Tract Name Value Normal LVOT 2D LVOT Diameter 2.0 cm LVOT Doppler LVOT Peak Velocity 79 cm/s LVOT Peak Gradient 2 mmHg LVOT Mean Gradient 1 mmHg LVOT VTI 18 cm LVOT VTI/AV VTI Ratio 0.7 LVOT Stroke Volume 59 ml LVOT CO 3.4 l/min LVOT CI 1.7 l/min/m2 Mitral Valve Name Value Normal MV Diastolic Function MV E Peak Velocity 86 cm/s MV A Peak Velocity 65 cm/s MV E/A 1.3 MV Decel Time (PW) 165 ms MV Annular TDI MV E/e' (Septal) 14.3 MV E/e' (Lateral) 12.5 MV E/e' (Average) 13.4 Tricuspid Valve Name Value Normal TV Regurgitation Doppler TR Peak Velocity 287 cm/s TR Peak Gradient 29 mmHg Estimated PAP/RSVP RA Pressure 5 mmHg <=5 PA Systolic Pressure 38 mmHg <36 RV Systolic Pressure 38 mmHg <36 TV Annular TDI TV Lateral Fawn s' Velocity 13.5 cm/s >=9.5 Aortic Valve Name Value Normal AV Doppler AV Peak Velocity 121 cm/s AV Peak Gradient 6 mmHg AV Mean Gradient 3 mmHg AV VTI 25 cm AV Area (Cont Eq VTI) 2.3 cm2 >=3.0 AV Area (Cont Eq Yeison) 2.1 cm2 AV DI (Yeison) 0.65 AV Regurgitation 2D LVOT Area 3.2 cm2 Ventricles Name Value Normal LV Dimensions 2D/MM IVS Diastolic Thickness (2D) 0.8 cm 0.6-1.0 LVID Diastole (2D) 4.3 cm 3.8-5.2 LVIW Diastolic Thickness (2D) 0.8 cm 0.6-0.9 LVID Systole (2D) 2.8 cm 2.2-3.5 LVOT Diameter 2.0 cm LV Mass (2D Cubed) 107.35 g 67.00-162.00 LV Mass Index (2D Cubed) 54 g/m2 43-95 Relative Wall Thickness (2D) 0.36 <=0.42 LV Fractional Shortening/Ejection Fraction 2D/MM LV Fractional Shortening (2D) 36 % 27-45 LV EF (2D Teichholz) 65 % LV Diastolic Volume (4C MOD) 50 ml LV EF (4C MOD) 68 % LV Diastolic Volume (2C MOD) 50 ml LV EF (2C MOD) 69 % LV Diastolic Volume (BP MOD) 50 ml 46-106 LV Diastolic Volume Index (BP MOD) 25 ml/m2 29-61 LV Systolic Volume (BP MOD) 16 ml 14-42 LV Systolic Volume Index (BP MOD) 8 ml/m2 8-24 LV EF (BP MOD) 68 % 54-74 LV Diastolic Length (4C) 7.6 cm LV Systolic Length (4C) 5.8 cm LV Stroke Volume (4C MOD) 34 ml Atria Name Value Normal LA Dimensions LA Volume (4C A-L) 40 ml LA Volume (BP A-L) 47 ml RA Dimensions RA Area (4C) 21.0 cm2 <=18.0 Report Signatures
[2025-04-20] MEDS: LACTATED RINGERS 1,000 ML 200 ML IV CONT ×4 (00:07→21:21)
[2025-04-20] MEDS: HYDROcodone/acetaminophen (*CRX) 10-325 MG TABLET 1 TAB PO ×3 (01:12→14:23)
[2025-04-20 03:15] LABS: Glucose Point of Care 90 mg/dl (65-105)
[2025-04-20 05:52] VITALS: BP 128/57; PULSE 65; RESP 18; TEMP 36.5; O2SAT 96
[2025-04-20 06:45] LABS: Basophils Percent Auto 0.7 % (0.2-1.2); Eosinophils Absolute Auto 0.1 K/mm3 (0-0.3); Hematocrit 36.5 % (37.0-47.0); Hemoglobin 11.9 g/dL (12.0-15.0); Lymphocytes Absolute Auto 1.86 K/mm3 (0.9-3.2); Lymphocytes Percent Auto 41.7 % (18.3-44.2); Mean Corpuscular HGB Conc 32.6 g/dl (32-36); Mean Corpuscular Hemoglobin 34.1 pg (26-34); Mean Corpuscular Volume 104.6 fl (80-100); Mean Platelet Volume 11.9 fl (7.4-10.4); Monocytes Absolute Auto 0.6 K/mm3 (0.1-0.6); Monocytes Percent Auto 12.8 % (2.6-8.5); Neutrophils Absolute Auto 1.9 K/mm3 (1.3-6.7); Neutrophils Percent Auto 42.8 % (45.5-73.1); Platelet Count Result 121 k/mm3 (150-375); Red Blood Count 3.49 M/mm3 (4.2-5.4); Red Cell Distribution Width 14.9 % (11.5-14.5); White Blood Count 4.5 K/mm3 (4.5-10.0)
[2025-04-20 06:49] LABS: Glucose Point of Care 83 mg/dl (65-105)
[2025-04-20 07:11] LABS: Alanine Aminotransferase 30 U/L (6-35); Albumin Level 2.4 g/dL (3.5-5.1); Alkaline Phosphatase 84 U/L (38-126); Anion Gap 0 mmol/L (4-12); Aspartate Amino Transferase 55 U/L (14-36); Bilirubin,Total 0.7 mg/dL (0.2-1.3); Blood Urea Nitrogen 7 mg/dL (7-17); Calcium 8.2 mg/dL (8.4-10.2); Carbon Dioxide 28 mmol/L (22-30); Chloride 110 mmol/L (98-107); Estimated CRCL calculation 67 ml/min; Estimated Glomerular Filt Rate > 60; Glucose 78 mg/dL (65-110); Lipase 629 U/L (23-300); Potassium 3.8 mmol/L (3.4-5.0); Sodium 138 mmol/L (137-145); Total Protein 4.4 g/dL (6.3-8.2)
[2025-04-20 08:07] VITALS: PULSE 78
[2025-04-20] MEDS: PREGABALIN (*CRX) 75 MG CAPSULE 150 MG PO ×2 (08:07→14:24)
[2025-04-20] MEDS: FUROSEMIDE 40 MG TABLET PO (08:07)
[2025-04-20] MEDS: METOPROLOL SUCCINATE EXT REL 25 MG TABCR BY MOUTH (08:07)
[2025-04-20] MEDS: ENOXAPARIN 40 MG/0.4 ML SYRINGE SUB-Q (08:07)
--- NOTE | 2025-04-20 09:27 | P.PNIM_ITS ---
Progress Note: A&P Assessment and Plan (1) Acute abdominal pain: Code(s): R10.9 - Unspecified abdominal pain Status: Acute Assessment and Plan: IV pain meds while NPO Exam is benign (2) Pancreatitis: Code(s): K85.90 - Acute pancreatitis without necrosis or infection, unspecified Status: Acute Assessment and Plan: Possible pancreatitis, CT shows slightly atrophic pancreas, lipase 664 LR at 200 IV pain medications Patient is on home oral Lasix she may need IV Lasix due to aggressive fluid hydration (3) Anxiety: Code(s): F41.9 - Anxiety disorder, unspecified Status: Acute Assessment and Plan: Patient is extremely anxious and crying and asking frequently for Dilaudid, doing much better now that her home Xanax has been ordered Home Xanax, pregabalin, Requip reordered (4) Elevated liver enzymes: Code(s): R74.8 - Abnormal levels of other serum enzymes Status: Acute Assessment and Plan: Repeat CMP tomorrow Subjective Date/time seen: 04/20/25 09:27 Interval history: Patient started on low-fat diet. Patient denies any abdominal pain today. Ordered ultrasound of the right upper quadrant pending read Review of Systems Review of Systems: 12 systems were reviewed and are negativ e except for as per HPI. Exam Narrative: General: well appearing, appears stated age. HEENT: normocephalic, atraumatic. Mucous membranes moist. EOMI, PERRLA, bilateral sclera anicteric, no conjunctival injection. Neck supple without JVD, lymphadenopathy, or bruit. Respiratory: clear to ascultation bilaterally. No rales/rhonic/wheezes. Cardiovascular: Regular rate and rhythm, normal S1-S2 upon ascultation. No murmurs, rubs, or clicks. PMI is nondisplaced, capillary refill less than 3 second. Abdomen: Soft, round, no pulsatile masses, nondistended and nontender. No rebound, no guarding. No CVA tenderness, no hepatosplenomegaly. Bowel sounds present to all four quadrants. No high pitch or tinkling sounds, resonant to percussion. Extremities: No cyanosis, clubbing, or edema present. Pulses are palpable 2/2. Active ROM to all four extremities. Neuro: Alert and orientated x 4. PERRLA. Cranial nerves 2-12 intact without focal deficit. Skin: Warm, dry, and intact, without rash, erythema, or lesion. Psych: pleasant, cooperative, normal speech, normal affect, no hallucinations, no dysarthia Objective Data Vital Signs Vital Signs: Vital Signs - 24 hr 04/19/25 09:38 04/19/25 10:49 04/19/25 11:29 Temperature 98.2 F Pulse Rate 71 69 65 Respiratory Rate 16 23 H 13 Blood Pressure 122/67 116/64 122/57 L Pulse Oximetry 95 96 95 Oxygen Delivery 04/19/25 14:00 04/19/25 15:18 04/19/25 21:28 Temperature 97.4 F L 97.8 F Pulse Rate 68 62 Respiratory Rate 14 16 Blood Pressure 147/58 H 109/60 Pulse Oximetry 97 98 Oxygen Delivery Room Air 04/20/25 05:52 04/20/25 08:07 Temperature 97.7 F Pulse Rate 65 78 Respiratory Rate 18 Blood Pressure 128/57 L Pulse Oximetry 96 Oxygen Delivery Intake/Output Intake/Output: Intake & Output 04/17/25 04/18/25 04/19/25 04/20/25 23:59 23:59 23:59 23:59 Intake Total 1999 1050 Balance 1999 1050 Meds/Results Medications: Active Medications Generic Name Dose Route Start Last Admin Trade Name Freq PRN Reason Stop Dose Admin Hydrocodone Bitart/Acetaminophen 1 tab 04/19/25 22:36 04/20/25 08:05 Hydrocodone/Acetaminophen (*Crx) 10-325 Mg Tablet PO 1 tab Q6H PRN Administration Pain, Moderate 4-6 Alprazolam 1 mg 04/19/25 16:39 04/19/25 17:28 Alprazolam (*Crx) 0.5 Mg Tablet PO 1 mg TID PRN Administration anxiety Enoxaparin Sodium 40 mg 04/20/25 09:00 04/20/25 08:07 Enoxaparin 40 Mg/0.4 Ml Syringe SUB-Q 40 mg DAILY CELSO Administration Furosemide 40 mg 04/20/25 09:00 04/20/25 08:07 Furosemide 40 Mg Tablet PO 40 mg QAM CELSO Administration Hydromorphone HCl 0.5 mg 04/19/25 13:08 04/19/25 16:36 Hydromorphone Hcl Inj (*Crx) 2 Mg/Ml Vial IV PUSH 0.5 mg Q3H PRN Administration Pain Rated 7-10 Lactated Ringer's 1,000 mls @ 200 mls/hr 04/19/25 16:40 04/20/25 05:49 Lr - Lactated Ringers Iv IV CONT 200 mls/hr .Q5H CELSO Administration Metoprolol Succinate 25 mg 04/20/25 09:00 04/20/25 08:07 Metoprolol Succinate Ext Rel 25 Mg Tabcr BY MOUTH 25 mg DAILY CELSO Administration Ondansetron HCl 4 mg 04/19/25 13:08 04/19/25 13:36 Ondansetron Inj 4 Mg/2 Ml Vial IV PUSH 4 mg Q6H PRN Administration Nausea And Vomiting Pregabalin 300 mg 04/19/25 21:00 04/19/25 21:25 Pregabalin (*Crx) 75 Mg Capsule PO 300 mg QHS CELSO Administration Pregabalin 150 mg 04/19/25 17:00 04/20/25 08:07 Pregabalin (*Crx) 75 Mg Capsule PO 150 mg BID@0900,1500 CELSO Administration Ropinirole HCl 0.5 mg 04/19/25 21:00 04/19/25 21:26 Ropinirole Hcl 0.5 Mg Tablet PO 0.5 mg QHS CELSO Administration Radiology Results: ITS Impressions Abdomen/Pelvis CT 04/19/25 08:26 IMPRESSION: 1. No evidence of appendicitis, diverticulitis or intestinal obstruction. 2. Hepatomegaly with fat infiltration of the liver. 3. Slightly atrophic pancreas. Labs Labs: Laboratory Results - last 24 hr 04/19/25 04/20/25 04/20/25 18:39 01:49 05:43 WBC 4.5 RBC 3.49 L Hgb 11.9 L Hct 36.5 L MCV 104.6 H MCH 34.1 H MCHC 32.6 RDW 14.9 H Plt Count 121 L MPV 11.9 H Immature Gran % (Auto) 0.0 Neut % (Auto) 42.8 L Lymph % (Auto) 41.7 Knox % (Auto) 12.8 H Eos % (Auto) 2.0 Baso % (Auto) 0.7 Lymph # (Auto) 1.86 Knox # (Auto) 0.6 Eos # (Auto) 0.1 Baso # (Auto) 0.0 Abs Immat Gran (auto) 0.00 Absolute Neuts (auto) 1.9 Absolute Nucleated RBC 0.000 Nucleated RBC % 0.0 Sodium 138 Potassium 3.8 Chloride 110 H Carbon Dioxide 28 Anion Gap 0 L BUN 7 D Creatinine 0.68 L Estim Creat Clear Calc 67 Estimated GFR > 60 Glucose 78 POC Capillary Glucose 87 90 Calcium 8.2 L Total Bilirubin 0.7 AST 55 H ALT 30 Alkaline Phosphatase 84 Total Protein 4.4 L Albumin 2.4 L Lipase 629 H 04/20/25 05:58 WBC RBC Hgb Hct MCV MCH MCHC RDW Plt Count MPV Immature Gran % (Auto) Neut % (Auto) Lymph % (Auto) Knox % (Auto) Eos % (Auto) Baso % (Auto) Lymph # (Auto) Knox # (Auto) Eos # (Auto) Baso # (Auto) Abs Immat Gran (auto) Absolute Neuts (auto) Absolute Nucleated RBC Nucleated RBC % Sodium Potassium Chloride Carbon Dioxide Anion Gap BUN Creatinine Estim Creat Clear Calc Estimated GFR Glucose POC Capillary Glucose 83 Calcium Total Bilirubin AST ALT Alkaline Phosphatase Total Protein Albumin Lipase Quality VTE Prophylaxis VTE prophylaxis: mechanical ordered and pharmacologic ordered Hospitalist MIPS Advance Care Plan I have confirmed that the patient's Advanced Care Plan is present, code status is documented, or surrogate decision maker is listed in patient medical record.: Yes Medication Reconciliation I have utilized all available resources to obtain, update and review the patients current medications (includes all prescriptions, OTC, herbals, cannabis, and nutritional supplements).: Yes
[2025-04-20 11:08] LABS: Troponin I < 0.012 ng/mL (0.000-0.034)
[2025-04-20 11:17] VITALS: O2SAT 97
[2025-04-20 12:25] LABS: Glucose Point of Care 82 mg/dl (65-105)
[2025-04-20 14:00] VITALS: BP 147/90; PULSE 77; RESP 18; TEMP 36.7; O2SAT 99
[2025-04-20] MEDS: PREGABALIN (*CRX) 75 MG CAPSULE 300 MG PO (20:13)
[2025-04-20] MEDS: rOPINIRole HCL 0.5 MG TABLET PO (20:16)
[2025-04-20] MEDS: ALPRAZolam (*CRX) 0.5 MG TABLET 1 MG PO (20:17)
[2025-04-20 21:17] VITALS: BP 103/63; PULSE 94; RESP 18; TEMP 36.3; O2SAT 96
[2025-04-21] MEDS: ALPRAZolam (*CRX) 0.5 MG TABLET 1 MG PO (04:33)
[2025-04-21] MEDS: LACTATED RINGERS 1,000 ML 200 ML IV CONT (04:34)
[2025-04-21 06:00] VITALS: BP 96/47; PULSE 73; RESP 18; TEMP 36.1; O2SAT 93
[2025-04-21 06:37] LABS: Hematocrit 38.4 % (37.0-47.0); Hemoglobin 12.5 g/dL (12.0-15.0); Immature Platelet Fraction Pct 4.7 % (0.9-11.2); Mean Corpuscular HGB Conc 32.6 g/dl (32-36); Mean Corpuscular Hemoglobin 33.7 pg (26-34); Mean Corpuscular Volume 103.5 fl (80-100); Mean Platelet Volume 11.5 fl (7.4-10.4); Platelet Count Result 124 k/mm3 (150-375); Red Blood Count 3.71 M/mm3 (4.2-5.4); Red Cell Distribution Width 14.8 % (11.5-14.5); White Blood Count 6.6 K/mm3 (4.5-10.0)
[2025-04-21 06:49] LABS: Alanine Aminotransferase 26 U/L (6-35); Albumin Level 2.5 g/dL (3.5-5.1); Alkaline Phosphatase 99 U/L (38-126); Anion Gap 2 mmol/L (4-12); Aspartate Amino Transferase 42 U/L (14-36); Bilirubin,Total 0.6 mg/dL (0.2-1.3); Blood Urea Nitrogen 14 mg/dL (7-17); Calcium 7.8 mg/dL (8.4-10.2); Carbon Dioxide 29 mmol/L (22-30); Chloride 107 mmol/L (98-107); Estimated CRCL calculation 63 ml/min; Estimated Glomerular Filt Rate > 60; Glucose 89 mg/dL (65-110); Potassium 3.4 mmol/L (3.4-5.0); Sodium 138 mmol/L (137-145); Total Protein 4.5 g/dL (6.3-8.2)
[2025-04-21] MEDS: FUROSEMIDE 40 MG TABLET PO (08:06)
[2025-04-21 08:07] VITALS: PULSE 88
[2025-04-21] MEDS: PREGABALIN (*CRX) 75 MG CAPSULE 150 MG PO (08:07)
[2025-04-21] MEDS: METOPROLOL SUCCINATE EXT REL 25 MG TABCR BY MOUTH (08:07)
[2025-04-21] MEDS: ENOXAPARIN 40 MG/0.4 ML SYRINGE SUB-Q (08:07)
--- NOTE | 2025-04-21 08:13 | P.DS_ITS ---
DS: Admitting Diagnosis Discharge Date 04/21/2025 Admitting Diagnosis Abdominal pain DS: Summary Hospital Course Hospital Course: 74-year-old female with past medical history of gastric bypass,, complains of abdominal pain nausea vomiting. Is unclear patient has abdominal pain or not. To a provider she says no she does not have abdominal pain she does not when she is here to others she says she is acute abdominal pain. Patient claims that the abdominal pain is severe in nature causes nausea and vomiting and dry heaves. She states that when she has the Dilaudid has no abdominal pain and is likely why she did have abdominal pain when other provider was in the room. Patient states the nausea vomiting and abdominal pain started yesterday. Lab work showed sodium of 135, anion gap of 2, creatinine of 0.67, AST of 48, lipase of 664, UA is negative for infection. CT abdomen pelvis show hepatomegaly with fatty liver infiltrates. Slight atrophic pancreas. No evidence of appendicitis diverticulitis or small intestine obstruction. Patient being admitted for possible pancreatitis. Patient was started on a low-fat diet and was able to tolerate p.o. Patient had a bowel movement as well. Patient underwent a right upper quadrant ultrasound which shows diffuse fatty infiltration of the liver and status post cholecystectomy. Patient denies alcoholism. On the day of discharge, the patient was seen and examined. Vital signs were stable. Physical exam were stable and labs were reviewed at length. Discharge instructions, medications, and follow-up appointments were discussed with the patient at length and all day questions were answered. ER warnings were given. Status at Discharge Cognitive/behavioral status at discharge: Stable Time Spent with Patient Time attestation: Total time spent providing and/or coordinating discharge services: 45 minutes Exam Narrative: General: well appearing, appears stated age. HEENT: normocephalic, atraumatic. Mucous membranes moist. EOMI, PERRLA, bilateral sclera anicteric, no conjunctival injection. Neck supple without JVD, lymphadenopathy, or bruit. Respiratory: clear to ascultation bilaterally. No rales/rhonic/wheezes. Cardiovascular: Regular rate and rhythm, normal S1-S2 upon ascultation. No murmurs, rubs, or clicks. PMI is nondisplaced, capillary refill less than 3 second. Abdomen: Soft, round, no pulsatile masses, nondistended and nontender. No rebound, no guarding. No CVA tenderness, no hepatosplenomegaly. Bowel sounds present to all four quadrants. No high pitch or tinkling sounds, resonant to percussion. Extremities: No cyanosis, clubbing, or edema present. Pulses are palpable 2/2. Active ROM to all four extremities. Neuro: Alert and orientated x 4. PERRLA. Cranial nerves 2-12 intact without focal deficit. Skin: Warm, dry, and intact, without rash, erythema, or lesion. Psych: pleasant, cooperative, normal speech, normal affect, no hallucinations, n o dysarthia DS: Data Data Completed and Pending Labs on day of discharge: Labs from last 24 hours 04/21/25 04/20/25 04/20/25 06:17 12:22 10:27 WBC 6.6 RBC 3.71 L Hgb 12.5 Hct 38.4 MCV 103.5 H MCH 33.7 MCHC 32.6 RDW 14.8 H Plt Count 124 L MPV 11.5 H % Immature Plt Fraction 4.7 Sodium 138 Potassium 3.4 Chloride 107 Carbon Dioxide 29 Anion Gap 2 L BUN 14 D Creatinine 0.73 Estim Creat Clear Calc 63 Estimated GFR > 60 Glucose 89 POC Capillary Glucose 82 Calcium 7.8 L Total Bilirubin 0.6 AST 42 H ALT 26 Alkaline Phosphatase 99 Troponin I < 0.012 Total Protein 4.5 L Albumin 2.5 L Imaging Radiologist's impression: ITS Impressions Abdomen/Pelvis CT 04/19/25 08:26 IMPRESSION: 1. No evidence of appendicitis, diverticulitis or intestinal obstruction. 2. Hepatomegaly with fat infiltration of the liver. 3. Slightly atrophic pancreas. Abdomen Ultrasound 04/20/25 13:41 Impression: Diffuse fatty infiltration of liver. Status post cholecystectomy. Discharge Plan Discharge Attending physician on discharge: Suleman Andujar Discharging Clinician: Suleman Andujar Anticipated Discharge Date/Time: 04/21/25 08:18 Patient Disposition: Home Activity: as tolerated Diet: low fat Discharge Instructions: In the event of abdominal pain, nausea or vomiting please return to ED. Check blood pressure 1 to 2 times a day. Record and bring into your doctor for review. Call your doctor if your blood pressure is greater than 180/110 or less than 90/45. Walk with cane or other assist device. Take precautions to avoid falls. Rise slowly from a lying or sitting position. Pause before standing or walking. Contact your doctor or call 911 and come to the Emergency Room if you have any type of trauma, lightheadedness with standing or other worrisome symptoms. Avoid NSAIDs (ibuprofen, naproxen, Aleve). Tylenol is safe to take. Follow-up with your primary care provider in 1-2 weeks. Please call for appointment. Follow-up with Cardiology in 2-4 weeks. Please call for an appointment. Thank you for using [facility] for your health care needs. Patient Instructions: Antibiotic Form, Low Fat Diet (DC), Low Fat Diet (GEN) Patient Language: Sudanese Stand Alone Forms: General Discharge Information Follow-up/Referrals: Leni Abreu APRN [Primary Care Provider] - Discharge Medications: New Saccharomyces boulardii [Florastor] 250 mg capsule 250 mg PO BID Qty: 60 3RF Continued multivitamin Capsule 1 cap PO DAILY Antacid Calcium 215 mg calcium (500 mg) tablet,chewable 215 mg PO TID Vitron-C 65 mg iron- 125 mg tablet,delayed release (DR/EC) 1 tablet PO DAILY Qty: 90 1RF furosemide 40 mg tablet 40 mg PO QAM Qty: 90 1RF potassium chloride 20 mEq/15 mL liquid 20 meq PO DAILY Qty: 1200 0RF magnesium citrate 100 mg capsule 200 mg PO QHS Qty: 120 0RF ropinirole 0.25 mg tablet 0.5 mg PO QHS hydrocodone-acetaminophen 10-325 mg Tablet 1 tablet PO Q6H PRN (Reason: Pain, Moderate) omeprazole 40 mg capsule,delayed release(DR/EC) See Rx Instructions .ROUTE .COMPLEX Qty: 90 1RF Dose Instruction: TAKE 1 CAPSULE EVERY DAY Rx Instructions: TAKE 1 CAPSULE EVERY DAY metoprolol succinate 25 mg tablet extended release 24 hr See Rx Instructions .ROUTE .COMPLEX Qty: 90 2RF Dose Instruction: TAKE 1 TABLET BY MOUTH EVERY DAY Rx Instructions: TAKE 1 TABLET BY MOUTH EVERY DAY alprazolam 1 mg tablet 1 mg PO TID PRN (Reason: anxiety) Qty: 90 0RF (DME) blood-glucose meter [OneTouch Verio Flex meter] [facility] [place] See Rx Instructions .ROUTE .COMPLEX Qty: 1 0RF Dose Instruction: CHECK BLOOD GLUCOSE 1 TIME PER DAY DIRECTED Rx Instructions: CHECK BLOOD GLUCOSE 1 TIME PER DAY DIRECTED pregabalin 300 mg capsule 300 mg PO QHS Qty: 30 0RF pregabalin 150 mg capsule 150 mg PO BID Qty: 60 0RF Rx Instructions: AM and afternoon Held Wegovy 0.25 mg/0.5 mL pen injector 0.25 mg subcut WEEKLY Qty: 2 0RF Hold Instructions: Resume on 05/15/25. Please discuss with your PCP and continue Rx Instructions: administer weeks 1 through 4 of therapy Date of admission: 04/20/25 11:06 Primary Care Provider: Leni Abreu Admitting Provider: Venita Eubanks Attending physician on admission: Venita Eubanks Condition: Stable
== END 2025-04-21 11:55 | disposition home or self-care (01) | DRG 440 ==
LOC: ANHED 10:45 → ANH3MEDSUR 11:50
PROVIDERS: Nurse Practitioner Gerontology; Student in an Organized Health Care Education/Training Program; Admitting Provider Internal Medicine; Emergency Provider Emergency Medicine; PCP Nurse Practitioner Family; Visit Provider General Practice
DX: K85.90 Acute pancreatitis without necrosis or infection, unspecified (principal); I10 Essential (primary) hypertension; E55.9 Vitamin D deficiency, unspecified; K21.9 Gastro-esophageal reflux disease without esophagitis; M19.031 Primary osteoarthritis, right wrist; M51.369 Other intervertebral disc degeneration, lumbar region without mention of lumbar back pain or lower extremity pain; M17.0 Bilateral primary osteoarthritis of knee; G25.81 Restless legs syndrome; G62.9 Polyneuropathy, unspecified; F41.9 Anxiety disorder, unspecified; F32.A Depression, unspecified; F17.210 Nicotine dependence, cigarettes, uncomplicated; Z98.84 Bariatric surgery status; Z80.0 Family history of malignant neoplasm of digestive organs
CPT/HCPCS: 36415; 74177; 76705; 80053; 81001; 82948; 83690; 84484; 85025; 85027; 85055; 93306; 96361; 96372; 96374; 96375; 96376; 99285; A9270; G0378; J1171; J1650; J2405; J2470; J7030; J7120; Q9967

== ENCOUNTER 2025-05-10 12:03 | Emergency (ER) | payer MEDICARE, SELFPAY ==
--- NOTE | ~2025-05-10 | CT_ITS ---
CT abdomen pelvis w con Ordering provider: Nicole Lopez History: 74 years Female with . upper abdominal pain . Comparison: April 19, 2025 Technique: CT abdomen and pelvis with IV and without oral contrast. Automated exposure control and it erative reconstruction technique were employed. The dose-length product was 449.74 mGy-cm. Findings: VISUALIZED LOWER CHEST: Dependent atelectatic changes. UPPER ABDOMINAL ORGANS: Liver: Fat infiltration. Hepatomegaly. Gallbladder: Status post cholecystectomy. Slightly prominent CBD measuring 1.1 cm. Spleen: Normal. Stomach/duodenum: Postoperative changes are noted. Hypodensities are seen in the area of the duodenum with fluid content and air most likely the duodenal bulb. No change from previous examination seen. The possibility of an abscess is very remote. Follow-up advised. Pancreas: Slightly atrophic with prominent duct. Adrenals: Normal. Kidneys: Normal. PELVIC ORGANS: The bladder is normal. BOWEL AND MESENTERY: Colon: No evidence of diverticulitis. Normal appendix. Small Bowel: Normal. No obstruction. Postoperative changes in the left upper abdomen. Peritoneum/mesentery: No free air or free fluid. Mesenteric lymph node are seen with the largest allan uring 1.4 cm. RETROPERITONEUM: Mild atheromatous disease of the abdominal aorta. No retroperitoneal lymphadenopat hy. MUSCULOSKELETAL: Superficial soft tissues: The superficial soft tissues are normal. Bones: Age appropriate degenerative changes of the spine. IMPRESSION: 1. No evidence of appendicitis, diverticulitis or intestinal obstruction. 2. Hepatomegaly with fat infiltration. 3. Slightly atrophic pancreas. 4. The fluid containing area seen in the upper abdomen is most likely the bulb of the duodenum. Foll ow-up advised. 5. Slightly enlarged mesenteric lymph nodes. Reviewed, dictated and finalized at location A. IMPRESSION: 1. No evidence of appendicitis, diverticulitis or intestinal obstruction. 2. Hepatomegaly with fat infiltration. 3. Slightly atrophic pancreas. 4. The fluid containing area seen in the upper abdomen is most likely the bulb of the duodenum. Follow-up advised. 5. Slightly enlarged mesenteric lymph nodes.
--- NOTE | ~2025-05-10 | XR_ITS ---
EXAM/PROCEDURE: XR chest 1V - 05/10/2025 14:45 CDT HISTORY: 74 years old Female with upper abd pain TECHNIQUE: Two view(s) of the chest. COMPARISON: 04/26/2019 FINDINGS: LUNGS/ PLEURA: No focal consolidation. No appreciable pneumothorax or large pleural effusion. Right m idlung zone nodule, unchanged since 2019. HEART/ MEDIASTINUM: Heart appears normal in size. BONES: No acute osseous abnormality. OTHER: Visualized upper abdomen is unremarkable. Postsurgical changes are seen in the upper abdomen. IMPRESSION: No acute process. Reviewed, dictated and finalized at location A. IMPRESSION: No acute process.
--- OUTSIDE RECORDS SUMMARY | 2025-05-10 12:05 | XMS_ITS | Referral Summary ---
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
--- OUTSIDE RECORDS SUMMARY | 2025-05-10 12:05 | XMS_ITS | Clinical Summary ---
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
--- OUTSIDE RECORDS SUMMARY | 2025-05-10 12:05 | XMS_ITS | Clinical Summary ---
Author Organization [facility] Address [address] [place] [address] Care Team Providers Care Chief Operator Hydroformer Name Role Phone Onel Best MD Primary Care Provider [phone] Source Comments [facility],non-owned Affiliates and Associated Physician Practices is amultiple site organization consisting of ambulatory clinics and hospital sitesin [place], [place], [place] and [place]. This disclosure is being madepursuant to the Care Everywhere program and may not contain all information available regarding this patient. 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 Gender Identity Not on file Sexual Orientation Not on file Last Filed Vital Signs Vital Sign Reading Time Taken Comments Blood Pressure 141/89 11/25/2009 8:14 AM FUR BLOWER OPERATOR Pulse 75 11/25/2009 8:14 AM FUR BLOWER OPERATOR Temperature 36.9 C (98.5 F) 11/25/2009 8:14 AM FUR BLOWER OPERATOR Respiratory Rate 14 11/25/2009 8:14 AM FUR BLOWER OPERATOR Oxygen Saturation 94% 10/31/2009 1:27 PM FUR BLOWER OPERATOR Inhaled Oxygen Concentration - - Weight 99.2 kg (218 lb 11.1 oz) 10/29/2009 8:29 AM FUR BLOWER OPERATOR Height 170.2 cm (5' 7.01) 10/30/2009 8:00 AM CS T Body Mass Index 34.24 10/29/2009 8:29 AM FUR BLOWER OPERATOR Plan of Treatment Health Maintenance Due [...] season) 2024 DEPRESSION SCREENING 11/01/2024 INFLUENZA VACCINE (#1) 2025 HEPATITIS B VACCINE Aged Out No [...] patient's age to complete this topic Insurance [facility] MEDICARE Advance Directives * Full Code (Latest Code Status on File) Date Activated Date Inactivated Comments 10/29/2009 2:50 PM 11/01/2009 2:49 AM Care Teams Chief Operator Hydroformer Relationship Specialty Start Date End Date Onel Best MD [address] [facility] [address] [place] [address] PCP - General 11/26/21
--- OUTSIDE RECORDS SUMMARY | 2025-05-10 12:06 | XMS_ITS | Data Portability ---
Author Organization [facility] Address [address] [place] [address] Care Team Providers Care Foreign Car Mechanic Name Role Phone SÁNCHEZ PICKARD Primary Care Provider SÁNCHEZ PICKARD Primary Care Provider Assessment Encounter Date Assessment Date Assessment LastModified by Organization Details LastModified Time 12/03/2020 12/03/2020 reassured re lesion, benign screening mammo overdue, ordered and encouraged will schedule WWE [email or web address] Not available 12/04/2020 17:51:52 11/10/2022 11/10/2022 diflucan x2 given many risk factors also has atrophy so if sx don't resolve, estrace cream coconut oil prn strongly encouraged mammogram and WWE [email or web address] Not available 11/11/2022 09:40:29 11/30/2022 11/30/2022 will start estrace for atrophy. pea size nightly for 30d, then 3x per week, FU 2 mos [email or web address] Not available 11/30/2022 15:49:39 Plan of Treatment Reminders Order Date Submit Date Provider Last Modified By Organization Details Last Modified Time Details Appointments None recorded. Lab None recorded. Referral None recorded. Procedures None recorded. Surgeries None recorded. Imaging MAMMO, screening, bilateral 2020 021 OCTAVIO Not available 05:01:08 Medication Orders Estrace 0.01% (0.1 mg/gram) vaginal cream 2022 023 OCTAVIO [id number], [address] [place], [address], 3 15:46:57 Diflucan 150 mg tablet 2022 023 [id number], [address], [place], [address], 3 09:39:04 Patient TargetsNo targets recorded. Patient InstructionsNo instructions recorded. Reason for Referral None Reported. Problems Name Problem SNOMED Code Status Onset Date Resolution Date Notes Provider Name and Address Organization Details Recorded Time Type 2 diabetes mellitus 43664786 Active 2020 Christine Bass MD [address], [place], [address], [facility] 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 1 11:49:39 History of Guillain Timewell syndrome 49025846722 9101 Active 2022 covid vaccine Christine Bass MD [address], [place], [address], [facility] 3 19:34:45 Problem Notes None recorded. Procedures Surgical History Date Name Laterality Status Provider Name and Address Organization Details Recorded Time 11/01/19 17 procedure on elbow completed Afuacamron Landon [facility] 12/18/2020 11:47:44 11/01/19 16 [facility] 12/18/2020 11:50:30 11/01/19 14 exploratory laparotomy completed Afua [facility] 12/18/2020 11:51:49 11/01/19 09 [facility]st[facility] 12/18/2020 11:44:58 11/01/19 [address] [facility] 12/18/2020 11:42:34 11/01/19 02 reconstruction of gastrostomy completed [facility] 12/18/2020 11:44:52 11/01/19 02 extracorporeal shockwave lithotripsy of the gallbladder completed [facility] 12/18/2020 11:52:19 11/01/[address] [facility] 12/18/2020 11:51:28 11/01/[address] [facility] 12/18/2020 11:43:00 Imaging Results None [...] Body mass index (BMI) Body weight Systolic And Diastolic Provider Name and Address Organization Details Last Updated DateTime 11/10/2022 168.28 cm 29.6 kg/m2 65179.59 g 142/82 mm[Hg] [facility] 11/10/2022 15:34:50 Date Recorded Body height Body mass index (BMI) Body weight Systolic And Diastolic Systolic And Diastolic Provider Name and Address Organization Details Last Updated DateTime 11/30/2022 168.28 cm 30 kg/m2 32401.77 g 162/87 mm[Hg] 142/90 mm[Hg] [facility] 15:33:50 Date Recorded Body height Body mass index (BMI) Body weight Systolic And Diastolic Provider Name and Address Organization Details Last Updated DateTime 12/03/2020 168.28 cm 36.5 kg/m2 315618.06 g 126/84 mm[Hg] Afua Landon [facility] 12/03/2020 11:55:00 Social History Question Answer Notes LastModified by Organizat ion Details LastModified Time Tobacco Smoking Status Current Every Day Smoker Afua Landon [facility] 12/18/2020 11:42:10 What Is Your Level Of Caffeine Consumption? Occasional Information not available 12/18/2020 What Is Your Current Pack Years? 30ormorepackyea rs [email or web address] Information not available 12/18/2020 How Much Tobacco Do You Smoke? 1 PPD Information not available 12/18/2020 Has Tobacco Cessation Counseling Been Provided? No [email or web address] Information not available 12/18/2020 How Many Years Have You Smoked Tobacco? 40 [email or web address] Information not available 12/18/2020 Sex: Unknown Functional Status Question Answer Note LastModified by Organizat ion Details LastModified Time Do you use any illicit or recreational drugs? No [email or web address] Information not available 12/18/2020 Do you or have you ever used any other forms of tobacco or nicotine? No [email or web address] Information not available 12/18/2020 What is your level of alcohol consumption? None [email or web address] Information not available 12/18/2020 What is your exercise level? Occasional Information not available 12/18/2020 Mental Status None recorded. Family History Relationship Description Onset Age of this Age Resolved Age Notes LastModified by Organization Details LastModified Time Sister Malignant tumor of breast [email or web address] Not available 12/18 11:40:18 Brother Heart disease Not available 12/18 11:40:29 Brother Myocardial infarction [email or web address] Not available 12/02 11:40:42 Brother Diabetes mellitus [email or web address] Not available 12/18 11:40:58 Brother Drug overdose [email or web address] Not available 2022 15:22:29 Mother Diabetes mellitus [email or web address] Not available 12/18 11:40:58 Father Malignant neoplasm of lung [email or web address] Not available 12/18 11:41:27 Medical History Condition [...] SNOMED-CT Code Diagnosis ICD10 Code Diagnosis Note [id number] Christine Bass MD [facility] [address],[place] [address] 12/03/2020 11:22:17 12/05/2020 14:08:46 Superficial folliculitis 616076875 L73.9 Screening mammography 24 923900 Z12.31 [id number] Christine Bass MD [facility] [address],[place] [address] 11/10/2022 15:20:10 11/11/2022 15:02:11 Candidiasis of vulva 2355429 B37.31 Atrophic vaginitis 09582 000 N95.2 [id number] Christine Bass MD [facility] [address],[place] [address] 11/30/2022 15:14:59 11/30/2022 15:52:49 Atrophic vaginitis 95150294 N95.2 Health Concerns Section Related Observation LastModified by Organization Detai ls LastModified Time None Recorded Concern Status LastModified by Organization Details LastModified Time None Recorded Advance Directives Directive None Recorded Payers Insurance Date Sequence Insurance Name Policy Number Policy Elise Covered Member ID Elise Member ID Guarantor Name 11/09/2022 1 [employer] (MEDICARE REPLACEMENT/AD VANTAGE - HMO) [id number] Felicity Dunbar [id number] Felicity Dunbar 01/26/2023 1 [facility] (MEDICARE REPLACEMENT HMO) [id number] Felicity Dunbar [id number] Felicity Dunbar Notes Date Note Type Note [...] violence:denies Christine Bass MD [address], [place], [address], [facility] 12/04/2020 17:52:25 11/10/2022 text/html Pt is [...] after last visit because she got Guillan Timewell from the COVID vaccine and ended up in rehab and still has weakness of BLE. Christine Bass MD [address], [place], [address], [facility] 11/11/2022 09:40:47 11/30/2022 text/html Here for persistent vulvitis sx. treated for yeast 11/10, improved for a few days, then got worse again, yesterday after she wiped started bleeding a little on left side of inner labia. always feels irritated. Christine Bass MD [address], [place], [address], [facility] 11/30/2022 15:49:52 OBGyn Episode Ob Episode Information Episode Created Date Number of Fetuses Patient Bloodtype Patient rh Status Prepregnancy Weight lbs Domestic Partner Domestic Partner Phone Father Name Chamfering Machine Operator Status 12/03/19 21 1 CLOSED Fetus [...] Domestic Partner Domestic Partner Phone Father Name Chamfering Machine Operator Status 12/03/19 21 1 CLOSED Fetus [...] Weeks Gestation Final Arnulfo Confirmed By Final Ranulfo Confirmed Date Final Arnulfo Date Ultra Sound [...]
[2025-05-10 12:16] VITALS: BP 134/78; PULSE 88; RESP 16; TEMP 36.7; O2SAT 98
--- NOTE | 2025-05-10 13:26 | ECG_ITS ---
Test Date: 2025-05-10 16:34:21 Measurements Intervals Friend Rate: 62 P: 46 IN: 142 QRS: 59 QRSD: 81 T: 35 QT: 400 QTc: 407 Interpretive Statements SINUS RHYTHM WITH OCCASIONAL SUPRAVENTRICULAR PREMATURE COMPLEXES No previous ECG available for comparison Electronically Signed On 05-11-2025 07:10:40 CDT by Shakeel Morrison M.D.
--- NOTE | 2025-05-10 13:28 | ED_ITS ---
HPI - Abdominal Pain General Chief Complaint: Abdominal Pain <Nicole Lopez PA-C - Last Filed: 05/10/25 13:30> Stated Complaint: abd pain, dry heaves, nausea <Nicole Lopez PA-C - Last Filed: 05/10/25 13:30> Time Seen by Provider: 05/10/25 17:09 <Nicole Lopez PA-C - Last Filed: 05/10/25 13:30> Focused HPI: 74-year-old female with reported history of gastric sleeve with 2 revisions, cholecystectomy, recent diagnosis and admission for pancreatitis presents to the emergency department for concerns for pancreatitis. Patient was admitted on 04/19/2025 and discharged home on 04/21/2025 for pancreatitis. Patient states she never fully recovered but over the past 3 days her symptoms have worsened. She reports nausea, dry heaving, upper abdominal pain. She denies fever, chest pain or shortness of breath, cough or congestion, dysuria or hematuria, diarrhea. Denies alcohol use. States they believed her cause of pancreatitis was from Ozempic which she has since discontinued. States she has been taking 8 mg of Zofran prescribed by her PCP with minimal improvement. GENERAL: Well-appearing, well-nourished, and in no acute distress. HEAD: Normocephalic, atraumatic. CHEST: Clear to auscultation. ?No respiratory distress. ABD: Tenderness to the epigastrium, left upper quadrant, right upper quadrant. No rebound, guarding or rigidity. No CVA tenderness. HEART: Regular rate and rhythm.? NEURO: ?Alert and oriented x3. Patient screened in triage and initial orders placed.? ?Additional care and disposition to be based upon?diagnostic testing and treatment. <Nicole Lopez PA-C - Last Filed: 05/10/25 13:30> Focused HPI: 74-year-old female with reported history of gastric sleeve with 2 revisions, cholecystectomy, recent diagnosis and admission for pancreatitis presents to the emergency department for concerns for pancreatitis. Patient was admitted on 04/19/2025 and discharged home on 04/21/2025 for pancreatitis. Patient states she never fully recovered but over the past 3 days her symptoms have worsened. She reports nausea, dry heaving, upper abdominal pain. She denies fever, chest pain or shortness of breath, cough or congestion, dysuria or hematuria, diarrhea. Denies alcohol use. States they believed her cause of pancreatitis was from Ozempic which she has since discontinued. States she has been taking 8 mg of Zofran prescribed by her PCP with minimal improvement. She has had these symptoms since discontinuing Ozempic. GENERAL: Well-appearing, well-nourished, and in no acute distress. HEAD: Normocephalic, atraumatic. CHEST: Clear to auscultation. ?No respiratory distress. ABD: Tenderness to the epigastrium, left upper quadrant, right upper quadrant. No rebound, guarding or rigidity. No CVA tenderness. HEART: Regular rate and rhythm.? NEURO: ?Alert and oriented x3. Patient screened in triage and initial orders placed.? ?Additional care and disposition to be based upon?diagnostic testing and treatment. <Savanah Greco PA-C - Last Filed: 05/10/25 19:57> Related Data Home Medications: Home Medications ?Medication ?Instructions ?Recorded ?Confirmed ?Last Taken ?Type calcium carbonate (Antacid Calcium) 215 mg PO TID 09/10/21 05/10/25 11/24/21 History hydrocodone 10 mg-acetaminophen 1 tablet PO Q6H PRN Pain, Moderate 11/14/21 05/10/25 05/10/25 History 325 mg tablet ropinirole 0.25 mg tablet 0.25 mg PO QHS 05/03/25 05/10/25 05/09/25 History <Nicole Lopez PA-C - Last Filed: 05/10/25 13:30> Allergies/Adverse Reactions: Allergies Allergy/AdvReac Type Severity Reaction Status Date / Time No Known Allergies Allergy Verified 05/10/25 12:15 <Nicole Lopez PA-C - Last Filed: 05/10/25 13:30> Review of Systems 2 Review of Systems: All systems reviewed & are unremarkable except as noted in HPI and below <Savanah Greco PA-C - Last Filed: 05/10/25 19:57> PMFSH Past Medical History Medical History: Medical History Body mass index (bmi) 32.0-32.9, adult (10/07/16) 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, right, degenerative Hypoglycemia Lumbar degenerative disc disease Encounter for screening colonoscopy Abdominal cramping Family history of malignant neoplasm of colon in mother Epigastric pain Depression Chronic back pain Tobacco abuse Screening for osteoporosis Anxiety Carpal tunnel syndrome of left wrist Cataract of both eyes Depression Essential (primary) hypertension Gastroesophageal reflux disease Peripheral polyneuropathy Primary osteoarthritis of both knees Restless legs syndrome Vitamin B 12 deficiency <Nicole Lopez PA-C - Last Filed: 05/10/25 13:30> Surgical History Surgical History: Surgical History Hx of gastric bypass Gastric bypass status for obesity History of bariatric surgery History of bariatric surgery <ROSA Hardy Last Filed: 05/10/25 13:30> Family History Family History: Family History Sibling Cerebrovascular accident Patient's brother is Acute myocardial infarction Mother Carcinoma of colon Patient's mother is Father Family history of lung cancer Patient's father is Other Depression Family history of arthritis Family history of malignant neoplasm Hypertension <ROSA Hardy Last Filed: 05/10/25 13:30> Social History Social History: Social History Smoking packs per day: 2 Smoking cigarettes per day: 40.0 Years smoked: 50 Smoking pack-years: 100.00 Smoking status: Current every day smoker Second hand tobacco smoke exposure: Yes Alcohol intake: never Substance use: former Substance use type: marijuana Do You Feel Safe in your Home?: Yes Lack of Transportation: No Lack of Food: Never True Current Housing: I Have Housing Concerned About Future Housing: No Difficulty Paying Gas/Electric Bills: No Difficulty Paying for Meds: No Currently Unemployed: No Education: High School Diploma/GED Difficulty w/ Childcare or Family Care: No Living arrangements: with family Occupation/Education: retired Gender identity (if verbalized by the patient): Female Spiritual care concerns: No <ROSA Hardy Last Filed: 05/10/25 13:30> Exam 2 Narrative: GENERAL: Well-appearing, well-nourished, and in no acute distress. HEAD: Normocephalic, atraumatic. EYES: EOMI. CHEST: Clear to auscultation. No respiratory distress. No wheezes rales or rhonchi HEART: Regular rate and rhythm. No murmur heard. Normal peripheral pulses. ABDOMEN: Soft, nondistended, normal active bowel sounds. Mild tenderness to palpation in the epigastrium, without guarding EXTREMITIES: Normal range of motion. No edema. SKIN: Warm, dry, no rash. NEURO: No focal deficits. Alert and oriented x3. PSYCH: Normal mood and affect <Savanah Greco PA-C - Last Filed: 05/10/25 19:57> Course Course Emergency Course: Patient updated on her workup. Resting comfortably. Agrees with plan of care <ROSA Garsia Last Filed: 05/10/25 19:57> Vital Signs Vital signs: Vital Signs Temperature 98.0 F 05/10/25 12:16 Pulse Rate 88 05/10/25 12:16 Respiratory Rate 16 05/10/25 12:16 Blood Pressure 134/78 05/10/25 12:16 Pulse Oximetry 98 05/10/25 12:16 Temperature 98.4 F 05/10/25 19:49 Pulse Rate 91 05/10/25 19:49 Respiratory Rate 16 05/10/25 19:49 Blood Pressure 125/94 H 05/10/25 19:49 Pulse Oximetry 98 05/10/25 19:49 Oxygen Delivery Room Air 05/10/25 16:45 <Nicole Lopez PA-C - Last Filed: 05/10/25 13:30> Vital Signs Temperature 98.0 F 05/10/25 12:16 Pulse Rate 88 05/10/25 12:16 Respiratory Rate 16 05/10/25 12:16 Blood Pressure 134/78 05/10/25 12:16 Pulse Oximetry 98 05/10/25 12:16 Temperature 98.4 F 05/10/25 19:49 Pulse Rate 91 05/10/25 19:49 Respiratory Rate 16 05/10/25 19:49 Blood Pressure 125/94 H 05/10/25 19:49 Pulse Oximetry 98 05/10/25 19:49 Oxygen Delivery Room Air 05/10/25 16:45 <Savanah Greco PA-C - Last Filed: 05/10/25 19:57> MDM - Abdominal Pain MDM Narrative Medical decision making narrative: Patient presents the emergency department for upper abdominal discomfort, nausea, ongoing since stopping her Ozempic. She is afebrile and nontoxic appearing. Her vitals are stable. Cbc without leukocytosis. Metabolic panel and lipase without concerning findings. Urine without evidence of infection. CT abdomen and pelvis shows several chronic findings. Slightly enlarged mesenteric lymph nodes. Patient updated on her workup. Resting comfortably. She is to follow up with her primary provider for further evaluation. Will be given information for GI follow up. She was given warnings to return to the ER < Savanah Greco PA-C - Last Filed: 05/10/25 19:57> Differential Diagnosis Differential diagnosis: Likely abdominal pain, gastroenteritis, pancreatitis and other (adverse reaction of medication) <Savanah Greco PA-C - Last Filed: 05/10/25 19:57> Lab Data Attestation: I reviewed the patient's lab results. <Savanah Greco PA-C - Last Filed: 05/10/25 19:57> Result diagrams: 05/10/25 16:23 05/10/25 16:23 <Nicole Lopez PA-C - Last Filed: 05/10/25 13:30> Labs: Lab Results 05/10/25 05/10/25 Range/Units 16:23 16:42 WBC 7.1 (4.5-10.0) K/mm3 RBC 4.00 L (4.2-5.4) M/mm3 Hgb 13.8 (12.0-15.0) g/dL Hct 42.0 (37.0-47.0) % MCV 105.0 H (80-100) fl MCH 34.5 H (26-34) pg MCHC 32.9 (32-36) g/dl RDW 15.3 H (11.5-14.5) % Plt Count 154 (150-375) k/mm3 MPV 11.4 H (7.4-10.4) fl Immature Gran % (Auto) 0.3 (0-0.5) % Neut % (Auto) 57.3 (45.5-73.1) % Lymph % (Auto) 31.0 (18.3-44.2) % [place] % (Auto) 10.0 H (2.6-8.5) % Eos % (Auto) 0.7 (0-4.4) % Baso % (Auto) 0.7 (0.2-1.2) % Lymph # (Auto) 2.20 (0.9-3.2) K/mm3 [place] # (Auto) 0.7 H (0.1-0.6) K/mm3 Eos # (Auto) 0.1 (0-0.3) K/mm3 Baso # (Auto) 0.1 (0.0-0.1) K/mm3 Abs Immat Gran (auto) 0.02 (0.00-0.031) K/mm3 Absolute Neuts (auto) 4.1 (1.3-6.7) K/mm3 Absolute Nucleated RBC 0.000 (0.0-0.012) K/mm3 Nucleated RBC % 0.0 (0.0-0.2) % Sodium 136 L (137-145) mmol/L Potassium 4.1 (3.4-5.0) mmol/L Chloride 106 (98-107) mmol/L Carbon Dioxide 26 (22-30) mmol/L Anion Gap 4 (4-12) mmol/L BUN 12 (7-17) mg/dL Creatinine 0.62 L (0.7-1.0) mg/dL Estim Creat Clear Calc 64 ml/min Estimated GFR > 60 (59 - ) Glucose 83 (65-110) mg/dL Calcium 8.3 L (8.4-10.2) mg/dL Total Bilirubin 0.8 (0.2-1.3) mg/dL AST 51 H (14-36) U/L ALT 30 (6-35) U/L Alkaline Phosphatase 123 (38-126) U/L Troponin I < 0.012 (0.000-0.034) ng/mL Total Protein 5.5 L (6.3-8.2) g/dL Albumin 3.2 L (3.5-5.1) g/dL Lipase 89 (23-300) U/L Urine Color Yellow (Yellow) Urine Appearance Clear (Clear) Urine pH 5.5 (5.0-9.0) Ur Specific [place] 1.023 (1.001-1.035) Urine Protein Negative (Negative) mg/dL Urine Glucose (UA) Negative (Negative) mg/dL Urine Ketones 1+ H (Negative) mg/dL Ur Blood (Man) Negative (Negative) Urine Nitrate Negative (Negative) Urine Bilirubin Negative (Negative) Urine Urobilinogen 1.0 (<2.0) mg/dL Leukocyte Esterase Rfl Negative (Negative) JONO/UL <Nicloe Lopez PA-C - Last Filed: 05/10/25 13:30> Lab Results 05/10/25 05/10/25 Range/Units 16:23 16:42 WBC 7.1 (4.5-10.0) K/mm3 RBC 4.00 L (4.2-5.4) M/mm3 Hgb 13.8 (12.0-15.0) g/dL Hct 42.0 (37.0-47.0) % MCV 105.0 H (80-100) fl MCH 34.5 H (26-34) pg MCHC 32.9 (32-36) g/dl RDW 15.3 H (11.5-14.5) % Plt Count 154 (150-375) k/mm3 MPV 11.4 H (7.4-10.4) fl Immature Gran % (Auto) 0.3 (0-0.5) % Neut % (Auto) 57.3 (45.5-73.1) % Lymph % (Auto) 31.0 (18.3-44.2) % Gosper % (Auto) 10.0 H (2.6-8.5) % Eos % (Auto) 0.7 (0-4.4) % Baso % (Auto) 0.7 (0.2-1.2) % Lymph # (Auto) 2.20 (0.9-3.2) K/mm3 [place] # (Auto) 0.7 H (0.1-0.6) K/mm3 Eos # (Auto) 0.1 (0-0.3) K/mm3 Baso # (Auto) 0.1 (0.0-0.1) K/mm3 Abs Immat Gran (auto) 0.02 (0.00-0.031) K/mm3 Absolute Neuts (auto) 4.1 (1.3-6.7) K/mm3 Absolute Nucleated RBC 0.000 (0.0-0.012) K/mm3 Nucleated RBC % 0.0 (0.0-0.2) % Sodium 136 L (137-145) mmol/L Potassium 4.1 (3.4-5.0) mmol/L Chloride 106 (98-107) mmol/L Carbon Dioxide 26 (22-30) mmol/L Anion Gap 4 (4-12) mmol/L BUN 12 (7-17) mg/dL Creatinine 0.62 L (0.7-1.0) mg/dL Estim Creat Clear Calc 64 ml/min Estimated GFR > 60 (59 - ) Glucose 83 (65-110) mg/dL Calcium 8.3 L (8.4-10.2) mg/dL Total Bilirubin 0.8 (0.2-1.3) mg/dL AST 51 H (14-36) U/L ALT 30 (6-35) U/L Alkaline Phosphatase 123 (38-126) U/L Troponin I < 0.012 (0.000-0.034) ng/mL Total Protein 5.5 L (6.3-8.2) g/dL Albumin 3.2 L (3.5-5.1) g/dL Lipase 89 (23-300) U/L Urine Color Yellow (Yellow) Urine Appearance Clear (Clear) Urine pH 5.5 (5.0-9.0) Ur Specific [place] 1.023 (1.001-1.035) Urine Protein Negative (Negative) mg/dL Urine Glucose (UA) Negative (Negative) mg/dL Urine Ketones 1+ H (Negative) mg/dL Ur Blood (Man) Negative (Negative) Urine Nitrate Negative (Negative) Urine Bilirubin Negative (Negative) Urine Urobilinogen 1.0 (<2.0) mg/dL Leukocyte Esterase Rfl Negative (Negative) JONO/UL <Savanah Greco PA-C - Last Filed: 05/10/25 19:57> Imaging Data Radiologist's impression: ITS Impressions Chest X-Ray 05/10/25 15:05 IMPRESSION: No acute process. Abdomen/Pelvis CT 05/10/25 18:34 IMPRESSION: 1. No evidence of appendicitis, diverticulitis or intestinal obstruction. 2. Hepatomegaly with fat infiltration. 3. Slightly atrophic pancreas. 4. The fluid containing area seen in the upper abdomen is most likely the bulb of the duodenum. Follow-up advised. 5. Slightly enlarged mesenteric lymph nodes. <ROSA Hardy Last Filed: 05/10/25 13:30> ITS Impressions Chest X-Ray 05/10/25 15:05 IMPRESSION: No acute process. Abdomen/Pelvis CT 05/10/25 18:34 IMPRESSION: 1. No evidence of appendicitis, diverticulitis or intestinal obstruction. 2. Hepatomegaly with fat infiltration. 3. Slightly atrophic pancreas. 4. The fluid containing area seen in the upper abdomen is most likely the bulb of the duodenum. Follow-up advised. 5. Slightly enlarged mesenteric lymph nodes. <Savanah Greco PA-C - Last Filed: 05/10/25 19:57> Critical Care Time Critical Care Time Critical Care Time: No <Savanah Greco PA-C - Last Filed: 05/10/25 19:57> Discharge Plan Discharge Clinical Impression: Nausea and vomiting Qualifiers: Vomiting type: unspecified Qualified Code(s): R11.2 - Nausea with vomiting, unspecified Adverse drug reaction Qualifiers: Encounter type: subsequent encounter Qualified Code(s): T50.905D - Adverse effect of unspecified drugs, medicaments and biological substances, subsequent encounter <Nicole Lopez PA-C - Last Filed: 05/10/25 13:30> Patient Disposition: Home <ROSA Hardy Last Filed: 05/10/25 13:30> Condition: Improved <ROSA Hardy Last Filed: 05/10/25 13:30> Instructions: Acute Nausea and Vomiting (ED), Abdominal Pain (ED) <ROSA Hardy Last Filed: 05/10/25 13:30> Additional Instructions: Return to the ER if you experience fever, abdominal pain with nausea and vomiting, you are unable to keep down liquids or solids, or any other symptoms that are concerning to you Small, frequent meals. Rush diet. Remain well hydrated. Nausea medication as needed Follow up with your primary care doctor <Nicole Lopez PA-C - Last Filed: 05/10/25 13:30> Patient Language: Syriac <Nicole Lopez PA-C - Last Filed: 05/10/25 13:30> Prescriptions: New promethazine 12.5 mg tablet 12.5 mg PO TID PRN (Reason: nausea and vomiting) Qty: 14 0RF No Action Antacid Calcium 215 mg calcium (500 mg) tablet,chewable 215 mg PO TID ondansetron 8 mg tablet,disintegrating 8 mg PO Q6H PRN (Reason: nausea and vomiting) Qty: 30 0RF Vitron-C 65 mg iron- 125 mg tablet,delayed release (DR/EC) 1 tablet PO DAILY Qty: 90 1RF furosemide 40 mg tablet 40 mg PO QAM Qty: 90 1RF potassium chloride 20 mEq/15 mL liquid 20 meq PO DAILY Qty: 1200 0RF magnesium citrate 100 mg capsule 200 mg PO QHS Qty: 120 0RF ropinirole 0.25 mg tablet 0.25 mg PO QHS hydrocodone-acetaminophen 10-325 mg Tablet 1 tablet PO Q6H PRN (Reason: Pain, Moderate) omeprazole 40 mg capsule,delayed release(DR/EC) See Rx Instructions .ROUTE .COMPLEX Qty: 90 1RF Dose Instruction: TAKE 1 CAPSULE EVERY DAY Rx Instructions: TAKE 1 CAPSULE EVERY DAY metoprolol succinate 25 mg tablet extended release 24 hr See Rx Instructions .ROUTE .COMPLEX Qty: 90 2RF Dose Instruction: TAKE 1 TABLET BY MOUTH EVERY DAY Rx Instructions: TAKE 1 TABLET BY MOUTH EVERY DAY pregabalin 150 mg capsule 150 mg PO BID Qty: 60 0RF Rx Instructions: AM and afternoon (DME) blood-glucose meter [OneTouch Verio Flex meter] [facility] See Rx Instructions .ROUTE .COMPLEX Qty: 1 0RF Dose Instruction: CHECK BLOOD GLUCOSE 1 TIME PER DAY DIRECTED Rx Instructions: CHECK BLOOD GLUCOSE 1 TIME PER DAY DIRECTED pregabalin 300 mg capsule 300 mg PO QHS Qty: 30 0RF alprazolam 1 mg tablet 1 mg PO TID PRN (Reason: anxiety) Qty: 90 0RF <Nicole Lopez PA-C - Last Filed: 05/10/25 13:30> Follow-up/Referrals: Leni Abreu APRN [Primary Care Provider] - Carlito Dupont MD [Physician] - Wilton Gomez MD [Physician] - <Nicole Lopez PA-C - Last Filed: 05/10/25 13:30>
--- OUTSIDE RECORDS SUMMARY | 2025-05-10 13:30 | XMS_ITS | Clinical Summary ---
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
--- OUTSIDE RECORDS SUMMARY | 2025-05-10 13:30 | XMS_ITS | Clinical Summary ---
Author Organization [facility] [employer] Address [address] [place] [address] Care Team Providers Care Ballpoint Pen Cartridge Tester Name Role Phone Onel Best MD Primary Care Provider Source Comments [facility] [employer],non-owned Affiliates and Associated Physician Practices is amultiple site organization consisting of ambulatory clinics and hospital sitesin [place], [place], [place] and [place]. This disclosure is being madepursuant to the Care Everywhere program and may not contain all information available regarding this patient. 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 Gender Identity Not on file Sexual Orientation Not on file Last Filed Vital Signs Vital Sign Reading Time Taken Comments Blood Pressure 141/89 11/25/2009 8:14 AM ASSOCIATE PATHOLOGIST Pulse 75 11/25/2009 8:14 AM ASSOCIATE PATHOLOGIST Temperature 36.9 C (98.5 F) 11/25/2009 8:14 AM ASSOCIATE PATHOLOGIST Respiratory Rate 14 11/25/2009 8:14 AM ASSOCIATE PATHOLOGIST Oxygen Saturation 94% 10/31/2009 1:27 PM ASSOCIATE PATHOLOGIST Inhaled Oxygen Concentration - - Weight 99.2 kg (218 lb 11.1 oz) 10/29/2009 8:29 AM ASSOCIATE PATHOLOGIST Height 170.2 cm (5' 7.01) 10/30/2009 8:00 AM CS T Body Mass Index 34.24 10/29/2009 8:29 AM ASSOCIATE PATHOLOGIST Plan of Treatment Health Maintenance Due Date [...] patient's age to complete this topic Insurance [facility] MEDICARE Advance Directives * Full Code (Latest Code Status on File) Date Activated Date Inactivated Comments 10/29/2009 2:50 PM 11/01/2009 2:49 AM Care Teams Ballpoint Pen Cartridge Tester Relationship Specialty Start Date End Date Onel Best MD [address] [facility] [address] [place] [address] PCP - General 11/26/21
--- OUTSIDE RECORDS SUMMARY | 2025-05-10 13:30 | XMS_ITS | Referral Summary ---
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
[2025-05-10 15:36] VITALS: BP 125/66; PULSE 72; RESP 18; TEMP 36.7; O2SAT 98
[2025-05-10] MEDS: SODIUM CHLORIDE 0.9% IV 1,000 ML 999 ML IV CONT (16:10)
[2025-05-10] MEDS: MORPHINE SULFATE (*CRX) 4 MG/ML INJ 2 MG IV PUSH (16:11)
[2025-05-10] MEDS: ONDANSETRON INJ 4 MG/2 ML VIAL IV PUSH (16:11)
[2025-05-10 16:31] LABS: Hematocrit 42.0 % (37.0-47.0); Hemoglobin 13.8 g/dL (12.0-15.0); Immature Granulocyte Percent A 0.3 % (0-0.5); Lymphocytes Absolute Auto 2.20 K/mm3 (0.9-3.2); Mean Corpuscular HGB Conc 32.9 g/dl (32-36); Mean Corpuscular Hemoglobin 34.5 pg (26-34); Mean Corpuscular Volume 105.0 fl (80-100); Nucleated Red Blood Cells Absolute Auto 0.000 K/mm3 (0.0-0.012); Nucleated Red Blood Cells Perc 0.0 % (0.0-0.2); Platelet Count Result 154 k/mm3 (150-375); Red Blood Count 4.00 M/mm3 (4.2-5.4); White Blood Count 7.1 K/mm3 (4.5-10.0)
[2025-05-10 16:43] VITALS: BP 142/85; PULSE 71; RESP 13; O2SAT 100
[2025-05-10 16:45] VITALS: BP 125/89; PULSE 64; RESP 15; O2SAT 97
[2025-05-10 16:48] LABS: Alanine Aminotransferase 30 U/L (6-35); Albumin Level 3.2 g/dL (3.5-5.1); Alkaline Phosphatase 123 U/L (38-126); Anion Gap 4 mmol/L (4-12); Aspartate Amino Transferase 51 U/L (14-36); Bilirubin,Total 0.8 mg/dL (0.2-1.3); Blood Urea Nitrogen 12 mg/dL (7-17); Calcium 8.3 mg/dL (8.4-10.2); Carbon Dioxide 26 mmol/L (22-30); Chloride 106 mmol/L (98-107); Estimated CRCL calculation 64 ml/min; Estimated Glomerular Filt Rate > 60; Glucose 83 mg/dL (65-110); Lipase 89 U/L (23-300); Potassium 4.1 mmol/L (3.4-5.0); Sodium 136 mmol/L (137-145); Total Protein 5.5 g/dL (6.3-8.2)
[2025-05-10 16:50] LABS: Add Urine Microscopic? NO; Appearance Urine Clear (Clear); Glucose Urine UA Negative (Negative); Leukocyte Esterase Ur Negative LEU/UL (Negative); Nitrate Urine Negative (Negative); Specific Grav Ur 1.023 (1.001-1.035)
[2025-05-10 17:00] LABS: Troponin I < 0.012 ng/mL (0.000-0.034)
[2025-05-10 17:01] VITALS: BP 125/94; PULSE 76; RESP 15; O2SAT 100
[2025-05-10] MEDS: FAMOTIDINE 20 MG/2 ML VIAL IV PUSH (18:01)
[2025-05-10] MEDS: METOCLOPRAMIDE HCL INJ 10 MG/2 ML VIAL IV PUSH (18:03)
[2025-05-10] MEDS: PREGABALIN (*CRX) 75 MG CAPSULE 300 MG PO (18:41)
--- NOTE | 2025-05-10 19:17 | PC.NURSE ---
Pt removed herself from vitals machine.
[2025-05-10 19:49] VITALS: BP 125/94; PULSE 91; RESP 16; TEMP 36.9; O2SAT 98
== END 2025-05-10 19:39 | disposition home or self-care (01) ==
PROVIDERS: Physician Assistant; Emergency Provider Physician Assistant; PCP Nurse Practitioner Family
DX: R11.2 Nausea with vomiting, unspecified (principal); T50.905D Adverse effect of unspecified drugs, medicaments and biological substances, subsequent encounter; Z90.49 Acquired absence of other specified parts of digestive tract; Z98.84 Bariatric surgery status; F17.210 Nicotine dependence, cigarettes, uncomplicated
CPT/HCPCS: 36415; 71045; 74177; 80053; 81003; 83690; 84484; 85025; 93005; 96361; 96374; 96375; 99284; A9270; J1200; J2270; J2405; J2765; J7030; Q9967

== ENCOUNTER 2025-06-04 10:31 | Outpatient (CLI) | payer MEDICARE, SELFPAY ==
--- OUTSIDE RECORDS SUMMARY | 2025-06-04 11:01 | XMS_ITS | Clinical Summary ---
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
--- OUTSIDE RECORDS SUMMARY | 2025-06-04 11:01 | XMS_ITS | Clinical Summary ---
Author Organization [facility] Address [address] [place] [address] Care Team Providers Care Bag Worker Name Role Phone Onel Best MD Primary Care Provider [phone] Source Comments [facility],non-owned Affiliates and Associated Physician Practices is amultiple site organization consisting of ambulatory clinics and hospital sitesin [place], [place], [place] and [place]. This disclosure is being madepursuant to the Care Everywhere program and may not contain all information available regarding this patient. 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 Gender Identity Not on file Sexual Orientation Not on file Last Filed Vital Signs Vital Sign Reading Time Taken Comments Blood Pressure 141/89 11/25/2009 8:14 AM HOLLOW HANDLE BENCH WORKER Pulse 75 11/25/2009 8:14 AM HOLLOW HANDLE BENCH WORKER Temperature 36.9 C (98.5 F) 11/25/2009 8:14 AM HOLLOW HANDLE BENCH WORKER Respiratory Rate 14 11/25/2009 8:14 AM HOLLOW HANDLE BENCH WORKER Oxygen Saturation 94% 10/31/2009 1:27 PM HOLLOW HANDLE BENCH WORKER Inhaled Oxygen Concentration - - Weight 99.2 kg (218 lb 11.1 oz) 10/29/2009 8:29 AM HOLLOW HANDLE BENCH WORKER Height 170.2 cm (5' 7.01) 10/30/2009 8:00 AM CS T Body Mass Index 34.24 10/29/2009 8:29 AM HOLLOW HANDLE BENCH WORKER Plan of Treatment Health Maintenance Due Date [...] patient's age to complete this topic Insurance [facility] MEDICARE Advance Directives * Full Code (Latest Code Status on File) Date Activated Date Inactivated Comments 10/29/2009 2:50 PM 11/01/2009 2:49 AM Care Teams Bag Worker Relationship Specialty Start Date End Date Onel Best MD [address] [facility] [address] [place] [address] PCP - General 11/26/21
--- OUTSIDE RECORDS SUMMARY | 2025-06-04 11:01 | XMS_ITS | Referral Summary ---
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
--- NOTE | 2025-06-25 13:38 | P.SLEEP_ITS ---
Sleep Study Date of Study: 06/04/25 Ordering Provider: Leni Abreu APRN Interpreting Physician: Chasity Orr DO Sleep Study Type: Polysomnogram Height: 1.7 m Weight: 77.111 kg Body Mass Index: 26.6 Neck Circumference (inches): 12 [place]: 9 Reason for Sleep Study Snoring and Restless Leg Syndrome Sleep History The patient is a 74-year-old female that had a sleep study ordered by her primary care for evaluation of sleep apnea. The patient denies awakening from sleep short of breath. She denies awakening at night with heartburn, belching or cough. She occasionally snores but is never loud enough that others complain. She occasionally has trouble sleeping when she has a cold. She denies waking up gasping for air throughout the night. She denies having breathing problems at night observed by herself or others. She denies sweating excessively at night. She denies having heart palpitations or irregular heartbeats during the night. She occasionally falls asleep during the day but never while driving. She denies sleep paralysis and cataplexy. She denies having trouble at school or work due to sleepiness. She occasionally experiences vivid dreamlike scenes upon awakening or falling asleep. She denies feeling afraid of going to sleep. She rarely has nightmares. She occasionally remembers her dreams. She denies having thoughts racing through her mind. She denies feeling sad or depressed. She frequently has anxiety. She frequently has muscular tension. She frequently notices parts of her body jerk. She occasionally kicks during the night. She frequently has crawling and aching feelings in her legs and constantly has leg pain during the night. She denies grinding her teeth during sleep and denies awakening with morning jaw pain. She is constantly bothered by pain during the day and occasionally awakened by pain during the night. She constantly wakes up feeling stiff in the morning. She constantly wakes up with sore or achy muscles. She constantly wakes up with pain in the neck, spine and other joints. She goes to bed between 10-11 p.m. every night. It takes her 20-30 minutes to fall asleep. She wakes up once throughout the night and sometimes she is unable to fall back asleep. She wakes up between 5-7 a.m. every morning. She typically gets 5-6 hours of sleep per night. She does not stay in bed after waking up in the morning. She currently lives with her . She denies consuming any caffeinated beverages within 2 hours of bedtime. She denies engaging in physical exercise before bedtime. She will watch television before falling asleep. She denies reading before falling asleep. She will occasionally take naps in afternoon or the evening but they are not refreshing. 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, right, degenerative Hypoglycemia Lumbar degenerative disc disease Encounter for screening colonoscopy Abdominal cramping Family history of malignant neoplasm of colon in mother Depression Chronic back pain Tobacco abuse Screening for osteoporosis Anxiety Carpal tunnel syndrome of left wrist Cataract of both eyes Depression Essential (primary) hypertension Gastroesophageal reflux disease Peripheral polyneuropathy Primary osteoarthritis of both knees Restless legs syndrome Vitamin B 12 deficiency Surgical History Surgical History Hx of gastric bypass Gastric bypass status for obesity History of bariatric surgery History of bariatric surgery Family History Family History Sibling Cerebrovascular accident Patient's brother is Acute myocardial infarction Mother Carcinoma of colon Patient's mother is Father Family history of lung cancer Patient's father is Other Depression Family history of arthritis Family history of malignant neoplasm Hypertension Social History Social History Smoking packs per day: 2 Smoking cigarettes per day: 40.0 Years smoked: 50 Smoking pack-years: 100.00 Smoking status: Current every day smoker Second hand tobacco smoke exposure: Yes Alcohol intake: never Substance use: former Substance use type: marijuana Do You Feel Safe in your Home?: Yes Lack of Transportation: No Lack of Food: Never True Current Housing: I Have Housing Concerned About Future Housing: No Difficulty Paying Gas/Electric Bills: No Difficulty Paying for Meds: No Currently Unemployed: No Education: High School Diploma/GED Difficulty w/ Childcare or Family Care: No Living arrangements: with family Occupation/Education: retired Gender identity (if verbalized by the patient): Female Spiritual care concerns: No Medications Home Medications ?Medication ?Instructions ?Recorded ?Confirmed ?Type calcium carbonate (Antacid Calcium) 215 mg PO TID 09/0106/21/25 History hydrocodone 10 mg-acetaminophen 1 tablet PO Q6H PRN Pa in, Moderate 11/14/21 06/21/25 History 325 mg tablet omeprazole 40 mg capsule,delayed See Rx Instructions . Route 02/04/23 06/21/25 Rx release .COMPLEX #90 caps metoprolol succinate 25 mg See Rx Instructions .Route 01/29/25 06/21/25 Rx tablet,extended release 24 hr .COMPLEX #90 tabs iron,carbonyl 65 mg-vitamin C 125 1 tablet PO DAILY #9 0 tabs 04/18/25 06/21/25 Rx mg tablet,delayed release (Vitron-C) magnesium citrate 100 mg capsule 200 mg (2 x 100 mg) P O QHS #120 04/18/25 06/21/25 Rx caps potassium chloride 20 mEq/15 mL 20 meq (15 mL) PO CRISTINA Y #1,200 mL 04/18/25 06/21/25 Rx oral liquid blood-glucose meter (OneTouch #1 ea 04/23/25 06/15/25 Rx Verio Flex Meter) ondansetron 8 mg disintegrating 8 mg PO Q6H PRN nausea and 05/03/25 06/15/25 Rx tablet vomiting #30 tabs ropinirole 0.25 mg tablet 0.25 mg PO QHS 05/03/2506/02 History alprazolam 1 mg tablet 1 mg PO TID PRN anxiety #90 tabs 05/27/25 06/21/25 Rx furosemide 40 mg tablet 40 mg PO DAILY 06/15/2506/02 History pregabalin 150 mg capsule 150 mg PO BID #60 caps 06/1506/21/25 Rx furosemide 20 mg tablet (Lasix) 20 mg PO QPM #30 tabs 06/26/25 Rx pregabalin 300 mg capsule 300 mg PO QHS #30 caps 06/26 Rx Sleep Procedure A full night polysomnogram using the Zite multi-channel system recorded the standard physiologic parameters including EEG, EOG, submentalis EMG, anterior tibialis EMG, EKG, body position, nasal and oral airflow using nasal pressure sensor and thermistor.? Respiratory parameters of chest and abdominal movements were recorded with Respiratory Inductance Plethysmography belts. Oxygen saturation was recorded by pulse oximetry. Video monitoring was also performed. Sleep stages, periodic limb movements, and EEG arousals were scored in 30 second epochs according to the criteria of the AASM Scoring Manual. The Apnea-Hypopnea Index was calculated using CMS guidelines for definition of hypopnea with 4% O2 desaturations while scoring respiratory events. Sleep Architecture The total recording time was 451.1 minutes.? The total sleep time was 445.5 minutes. Sleep latency was 0.0 minutes. REM latency was 98.5 minutes. Sleep efficiency was 98.8%. The patient had 10 awakenings for an awakening index of 1 .3. Wake after sleep onset time was 6.0 minutes. The patient spent 19.5 minutes, 4.4% of total sleep time in Stage N1. The patient spent 362.0 minutes, 81.3% in Stage N2. The patient spent 0.0 minutes, 0.0% in Stage N3. The patient spent 64.0 minutes, 14.4% in Stage REM sleep. Respiratory Analysis The patient had 4 hypopneas, 2 mixed apneas, and 2 central apneas for an overall Apnea Hypopnea Index of 1.1. The REM Apnea Hypopnea Index was 6.6. The NREM Apnea Hypopnea Index was 0.5. The patient had a Central Apnea Hypopnea Index of 0.3. There was no evidence of Davian-Ortega Respirations. Arousals There were 29 total arousals for an arousal index of 3.9. There were 23 spontaneous arousals for an index of 3.1. There were 4 arousals due to respiratory events for an index of 0.5. There were 0 arousals due to periodic limb movements for an index of 0.? There were 2 arousals due to isolated limb movements for an index of 0.3. Periodic Limb Movements The patient had 55 isolated limb movements with an index of 7.4. The patient had 54 periodic limb movements with an index of 7.3. Patient had a total of 109 limb movements with a total limb movement index of 14.7. Oximetry Data The patient had an average oxygen saturation of 89.6% in sleep with a minimum oxygen saturation of 86.0% and a maximum oxygen saturation of 93.0%. The patient had 4 oxygen desaturations that were 4% or greater resulting in an Oxygen Desaturation Index of 0.5.? The patient spent 79.9 minutes, 17.7% of total sleep time with an oxygen saturation below 88%. Snoring Profile Mild to moderate snoring was present throughout the study. Cardiac Profile The EKG showed normal sinus rhythm. No arrhythmias or premature beats were seen. The patient had an average pulse rate of 78.1 bpm with a minimum pulse of rate of 70.0 bpm and a maximum pulse rate of 112.0 bpm.? EEG Profile No signs of seizure activity seen. Assessment and Plan Assessment and Plan (1) Sleep disturbances: Code(s): G47.9 - Sleep disorder, unspecified Status: Acute Assessment and Plan: The patient had an overall AHI of 1.1 with desaturation down to 86%. This is not consistent with sleep-disordered breathing. The patient did spend 79.9 minutes, 17.7% of the total recording time with an SpO2<88%. I recommend that the patient have further pulmonary evaluation due to hypoxemia in the absence of respiratory events. I also recommend considering an in-lab polysomnogram with supplemental O2 evaluation if the patient does not meet criteria during the daytime. The patient's sleep history is positive for Restless Leg Syndrome. The patient's symptoms are not fully controlled. I recommend that the patient have a serum ferritin drawn for evaluation of iron deficiency anemia. If the patient has a serum ferritin less than 75 ng/mL, I recommend starting a daily iron supplement and a Vitamin C supplement for better absorption. If the serum ferritin is greater than 75 ng/mL, I recommend starting a dopamine agonist and titrating the dose until symptoms resolve. There are nonpharmacological methods to treat limb movements including daily exercise, stretching calf muscles before bed, avoiding excessive amounts of caffeine and alcohol, vitamin B supplementation, magnesium lotion massaged into legs before bed, and use of a weighted blanket. Data The data obtained during this sleep study is adequate for interpretation. Certification This sleep study has been reviewed by a board certified sleep medicine physician.
[2025-06-26 21:40] VITALS: BMI 26.6
== END 2025-06-05 07:23 | disposition home or self-care (01) ==
LOC: ANHCSM 10:35
PROVIDERS: PCP Nurse Practitioner Family; Visit Provider Nurse Practitioner Family
DX: G25.81 Restless legs syndrome (principal); G47.9 Sleep disorder, unspecified
CPT/HCPCS: 95810

== ENCOUNTER 2025-06-21 01:09 | Day surgery (SDC) | payer MEDICARE, SELFPAY ==
[2025-06-11 09:59] VITALS: BMI 26.6
[2025-06-21 12:22] VITALS: BP 140/82; PULSE 77; RESP 16; TEMP 36.3; O2SAT 99; BMI 26.1
[2025-06-21] MEDS: SIMETHICONE ORAL SUSPENSION 20 MG/0.3 ML 30 ML BOTTLE 1.8 ML PO (12:27)
--- NOTE | 2025-06-21 12:52 | WPDANESEPPF ---
Anes - Initial Pre Proc Eval Procedure: Operation Date: 06/21/25 13:30 Proposed Procedures p Esophagogastroduodenoscopy - Wilton Gomez MD Date/Time: 06/21/25 12:52 Surgeon: Wilton Gomez MD Pre Op Diagnosis: Epigastric pain Patient Data Age: 74 Gender: F Height: 1.7 m Weight: 75.7 kg Last Vital Signs Temp 97.3 F L 06/21/25 12:22 Pulse 77 06/21/25 12:22 Resp 16 06/21/25 12:22 BP 140/82 06/21/25 12:22 Pulse Ox 99 06/21/25 12:22 O2 Del Method Room Air 06/21/25 12:22 Allergies Allergy/AdvReac Type Severity Reaction Status Date / Time No Known Allergies Allergy Verified 06/21/25 12:19 Home Medications ?Medication ?Instructions ?Recorded ?Confirmed ?Type calcium carbonate (Antacid Calcium) 215 mg PO TID 09/10/21 06/21/25 History hydrocodone 10 mg-acetaminophen 1 tablet PO Q6H PRN Pain, Moderate 11/14/21 06/21/25 History 325 mg tablet omeprazole 40 mg capsule,delayed See Rx Instructions .Route 02/04/23 06/21/25 Rx release .COMPLEX #90 caps metoprolol succinate 25 mg See Rx Instructions .Route 01/29/25 06/21/25 Rx tablet,extended release 24 hr .COMPLEX #90 tabs iron,carbonyl 65 mg-vitamin C 125 1 tablet PO DAILY #90 tabs 04/18/25 06/21/25 Rx mg tablet,delayed release (Vitron-C) magnesium citrate 100 mg capsule 200 mg (2 x 100 mg) PO QHS #120 04/18/25 06/21/25 Rx caps potassium chloride 20 mEq/15 mL 20 meq (15 mL) PO DAILY #1,200 mL 04/18/25 06/21/25 Rx oral liquid blood-glucose meter (OneTouch #1 ea 04/23/25 06/15/25 Rx Verio Flex Meter) pregabalin 300 mg capsule 300 mg PO QHS #30 caps 04/25/25 06/21/25 Rx ondansetron 8 mg disintegrating 8 mg PO Q6H PRN nausea and 05/03/25 06/15/25 Rx tablet vomiting #30 tabs ropinirole 0.25 mg tablet 0.25 mg PO QHS 05/03/25 06/21/25 History alprazolam 1 mg tablet 1 mg PO TID PRN anxiety #90 tabs 05/27/25 06/21/25 Rx furosemide 20 mg tablet (Lasix) 20 mg PO QPM #30 tabs 06/15/25 06/21/25 Rx furosemide 40 mg tablet 40 mg PO DAILY 06/15/25 06/21/25 History pregabalin 150 mg capsule 150 mg PO BID #60 caps 06/15/25 06/21/25 Rx Patient hx anesthesia problems: none Family hx anesthesia problems: none Results Review: All pre-operative results and documents have been reviewed as part of the pre-operative evaluation. 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, right, degenerative Hypoglycemia Lumbar degenerative disc disease Encounter for screening colonoscopy Abdominal cramping Family history of malignant neoplasm of colon in mother Depression Chronic back pain Tobacco abuse Screening for osteoporosis Anxiety Carpal tunnel syndrome of left wrist Cataract of both eyes Depression Essential (primary) hypertension Gastroesophageal reflux disease Peripheral polyneuropathy Primary osteoarthritis of both knees Restless legs syndrome Vitamin B 12 deficiency Surgical History Surgical History Hx of gastric bypass Gastric bypass status for obesity History of bariatric surgery History of bariatric surgery Family History Family History Sibling Cerebrovascular accident Patient's brother is Acute myocardial infarction Mother Carcinoma of colon Patient's mother is Father Family history of lung cancer Patient's father is Other Depression Family history of arthritis Family history of malignant neoplasm Hypertension Social History Social History Smoking packs per day: 2 Smoking cigarettes per day: 40.0 Years smoked: 50 Smoking pack-years: 100.00 Smoking status: Current every day smoker Second hand tobacco smoke exposure: Yes Alcohol intake: never Substance use: former Substance use type: marijuana Do You Feel Safe in your Home?: Yes Lack of Transportation: No Lack of Food: Never True Current Housing: I Have Housing Concerned About Future Housing: No Difficulty Paying Gas/Electric Bills: No Difficulty Paying for Meds: No Currently Unemployed: No Education: High School Diploma/GED Difficulty w/ Childcare or Family Care: No Living arrangements: with family Occupation/Education: retired Gender identity (if verbalized by the patient): Female Spiritual care concerns: No Anes - Eval Final PreProcedure Day of Procedure 06/21/25 12:52 Patient weight: normal Heart: regular rate and rhythm Lungs: clear to auscultation Airway: Mallampati scale class II Neurological: alert and oriented Last oral intake: >/= 8 hours ASA classification: III Emergent: no Anesthetic plan: proceed Anesthesia type and monitoring: general GIVS and standard monitoring Results Review: All pre-operative results and documents have been reviewed as part of the pre-operative evaluation. Informed Consent: The patient's anesthetic plan and its attendant risks and benefits were discussed with the patient/family/POA. Questions were solicited and answers provided to the satisfaction of the patient/family/POA.
--- NOTE | 2025-06-21 13:27 | PM.IMHP ---
H&P: HPI History of Present Illness Date/Time: 06/21/25 13:27 Chief Complaint: Epigastric pain Narrative: patient with a history of Vinayak-en-Y bypass in 2000, who has undergone revision of surgery twice. She is also status post cholecystectomy and was recently admitted for a mild episode of pancreatitis of unknown etiology. She complains of persistent nausea and sharp, moderate to severe epigastric pain. She is now referred for EGD. 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, right, degenerative Hypoglycemia Lumbar degenerative disc disease Encounter for screening colonoscopy Abdominal cramping Family history of malignant neoplasm of colon in mother Depression Chronic back pain Tobacco abuse Screening for osteoporosis Anxiety Carpal tunnel syndrome of left wrist Cataract of both eyes Depression Essential (primary) hypertension Gastroesophageal reflux disease Peripheral polyneuropathy Primary osteoarthritis of both knees Restless legs syndrome Vitamin B 12 deficiency Surgical History Surgical History Hx of gastric bypass Gastric bypass status for obesity History of bariatric surgery History of bariatric surgery Family History Family History Sibling Cerebrovascular accident Patient's brother is Acute myocardial infarction Mother Carcinoma of colon Patient's mother is Father Family history of lung cancer Patient's father is Other Depression Family history of arthritis Family history of malignant neoplasm Hypertension Social History Social History Smoking packs per day: 2 Smoking cigarettes per day: 40.0 Years smoked: 50 Smoking pack-years: 100.00 Smoking status: Current every day smoker Second hand tobacco smoke exposure: Yes Alcohol intake: never Substance use: former Substance use type: marijuana Do You Feel Safe in your Home?: Yes Lack of Transportation: No Lack of Food: Never True Current Housing: I Have Housing Concerned About Future Housing: No Difficulty Paying Gas/Electric Bills: No Difficulty Paying for Meds: No Currently Unemployed: No Education: High School Diploma/GED Difficulty w/ Childcare or Family Care: No Living arrangements: with family Occupation/Education: retired Gender identity (if verbalized by the patient): Female Spiritual care concerns: No Meds Home Medications and Allergies Home Medications ?Medication ?Instructions ?Recorded ?Confirmed ?Type calcium carbonate (Antacid Calcium) 215 mg PO TID 09/10/21 06/21/25 History hydrocodone 10 mg-acetaminophen 1 tablet PO Q6H PRN Pain, Moderate 11/14/21 06/21/25 History 325 mg tablet omeprazole 40 mg capsule,delayed See Rx Instructions .Route 02/04/23 06/21/25 Rx release .COMPLEX #90 caps metoprolol succinate 25 mg See Rx Instructions .Route 01/29/25 06/21/25 Rx tablet,extended release 24 hr .COMPLEX #90 tabs iron,carbonyl 65 mg-vitamin C 125 1 tablet PO DAILY #90 tabs 04/18/25 06/21/25 Rx mg tablet,delayed release (Vitron-C) magnesium citrate 100 mg capsule 200 mg (2 x 100 mg) PO QHS #120 04/18/25 06/21/25 Rx caps potassium chloride 20 mEq/15 mL 20 meq (15 mL) PO DAILY #1,200 mL 04/18/25 06/21/25 Rx oral liquid blood-glucose meter (OneTouch #1 ea 04/23/25 06/15/25 Rx Verio Flex Meter) pregabalin 300 mg capsule 300 mg PO QHS #30 caps 04/25/25 06/21/25 Rx ondansetron 8 mg disintegrating 8 mg PO Q6H PRN nausea and 05/03/25 06/15/25 Rx tablet vomiting #30 tabs ropinirole 0.25 mg tablet 0.25 mg PO QHS 05/03/25 06/21/25 History alprazolam 1 mg tablet 1 mg PO TID PRN anxiety #90 tabs 05/27/25 06/21/25 Rx furosemide 20 mg tablet (Lasix) 20 mg PO QPM #30 tabs 06/15/25 06/21/25 Rx furosemide 40 mg tablet 40 mg PO DAILY 06/15/25 06/21/25 History pregabalin 150 mg capsule 150 mg PO BID #60 caps 06/15/25 06/21/25 Rx Allergies Allergy/AdvReac Type Severity Reaction Status Date / Time No Known Allergies Allergy Verified 06/21/25 12:19 Vital Signs Vital Signs - 24 hr 06/21/25 12:22 Temperature 97.3 F L Pulse Rate 77 Respiratory Rate 16 Blood Pressure 140/82 Pulse Oximetry 99 Oxygen Delivery Room Air Exam Const: General: cooperative and healthy appearing Resp: Effort & Inspection: normal respiratory effort and able to speak in complete sentences Auscultation: clear to auscultation bilaterally Cardio: Rate: regular rate Rhythm: regular rhythm GI: Inspection: normal to inspection GI Palp: No No hepatosplenomegaly present Auscultation: normal bowel sounds Rectal Exam: deferred Skin: General skin exam: normal color Psych: Appearance: grossly normal Mental Status: mental status grossly normal Assessment and Plan Assessment and plan (1) Epigastric pain: Code(s): R10.13 - Epigastric pain Status: Acute Assessment and Plan: The patient is deemed a good candidate for the procedure. Consent signed. Will proceed.
[2025-06-21] MEDS: LACTATED RINGERS 1,000 ML 150 ML IV CONT (13:55)
[2025-06-21 14:37] VITALS: BP 104/60; PULSE 82; RESP 20; O2SAT 97
[2025-06-21 14:47] VITALS: BP 103/59; PULSE 84; RESP 18; O2SAT 99
[2025-06-21 14:57] VITALS: BP 125/72; PULSE 71; RESP 18; O2SAT 99
--- NOTE | 2025-06-21 15:05 | SUR.PHASEII ---
Pt did not wish to speak to MD before discharge.
== END 2025-06-21 15:04 | disposition home or self-care (01) ==
PROVIDERS: PCP Nurse Practitioner Family; Referring Provider Nurse Practitioner Family; Visit Provider Internal Medicine Gastroenterology
PROC: 0DJ08ZZ Inspection of Upper Intestinal Tract, Via Natural or Artificial Opening Endoscopic (ICD-10-PCS; CPT 43235; principal; 2025-06-21 13:30)
DX: R10.13 Epigastric pain (principal); I10 Essential (primary) hypertension; K21.9 Gastro-esophageal reflux disease without esophagitis; G25.81 Restless legs syndrome; E53.8 Deficiency of other specified B group vitamins; M19.031 Primary osteoarthritis, right wrist; M17.0 Bilateral primary osteoarthritis of knee; E16.2 Hypoglycemia, unspecified; F32.A Depression, unspecified; F41.9 Anxiety disorder, unspecified; M51.369 Other intervertebral disc degeneration, lumbar region without mention of lumbar back pain or lower extremity pain; G89.29 Other chronic pain; M54.9 Dorsalgia, unspecified; G56.02 Carpal tunnel syndrome, left upper limb; F17.210 Nicotine dependence, cigarettes, uncomplicated; F12.90 Cannabis use, unspecified, uncomplicated; G62.89 Other specified polyneuropathies; Z79.891 Long term (current) use of opiate analgesic; Z98.84 Bariatric surgery status; Z90.49 Acquired absence of other specified parts of digestive tract; Z80.0 Family history of malignant neoplasm of digestive organs; Z80.1 Family history of malignant neoplasm of trachea, bronchus and lung; Z82.49 Family history of ischemic heart disease and other diseases of the circulatory system
CPT/HCPCS: 43235; 82948; J2003; J2704; J7120

== ENCOUNTER 2025-10-01 10:34 | Outpatient (CLI) | payer MEDICARE, SELFPAY ==
--- NOTE | ~2025-10-01 | XR_ITS ---
XR lumbar spine 2-3V Indication: Radiculopathy, lumbar Comparison: None Findings: The vertebral heights are intact. No fracture or subluxation. The disc heights are intact. Soft tissues unremarkable Impression: No acute abnormality. Reviewed, dictated and finalized at location P. E OVERNIGHT MONITOR Impression: No acute abnormality.
--- NOTE | ~2025-10-01 | XR_ITS ---
[id number] Indication: Radiculopathy, cervical Comparison: None Findings: Grade 1 anterolisthesis of C4 on C5, no fracture. Moderate to severe loss of disc height at C5-6. Soft tissues unremarkable Impression: No acute abnormality. Reviewed, dictated and finalized at location P. GRADER Impression: No acute abnormality.
--- NOTE | ~2025-10-01 | XR_ITS ---
XR thoracic spine 3V Indication: Radiculopathy, thoracic Comparison: None Findings: The vertebral heights are intact. No fracture or subluxation. The disc heights are intact. Soft tissues unremarkable Impression: No acute abnormality. Reviewed, dictated and finalized at location [facility] Impression: No acute abnormality.
== END 2025-10-01 10:35 | disposition home or self-care (01) ==
LOC: MICIMG 10:35
PROVIDERS: PCP Nurse Practitioner Family; Visit Provider Pain Medicine Interventional Pain Medicine
DX: M47.23 Other spondylosis with radiculopathy, cervicothoracic region (principal); M47.27 Other spondylosis with radiculopathy, lumbosacral region; M47.26 Other spondylosis with radiculopathy, lumbar region
CPT/HCPCS: 72040; 72072; 72100

== ENCOUNTER 2025-10-09 20:31 | Emergency (ER) | payer MEDICARE, SELFPAY ==
--- NOTE | ~2025-10-09 | CT_ITS ---
CT abdomen pelvis w con Clinical History: ab pain . Comparison: 05/10/2025 Technique: Axial images lung bases to symphysis pubis 100 mL Omnipaque 350 Coronal, sagittal reformats CT images acquired with automatic exposure control for dose reduction DLP: 386 mGy-cm Findings: Lung bases: Small pleural effusions. Visualized heart and pericardium: Unremarkable. Liver: Steatosis. Mild intrahepatic biliary ductal dilatation after cholecystectomy Gallbladder: Removed. Spleen: Unremarkable. Pancreas: Unremarkable. Adrenal glands: Unremarkable. Kidneys: Right kidney- No hydronephrosis. No renal stones. Left kidney- No hydronephrosis. No renal stones. Distal esophagus/stomach: Gastric bypass. Small bowel loops: Normal caliber and wall thickness. Colon: Diverticula. Normal caliber and wall thickness. Normal RLQ appendix. Nodes: No enlarged nodes. Peritoneum: No ascites. No free air. Urinary bladder: Unremarkable. Uterus: Unremarkable. Adnexa: No masses. Bones: No acute bony abnormality. Soft tissues: Unremarkable. Aorta: No aneurysm or dissection. IVC: Unremarkable. Main portal vein/SMV/splenic vein: Patent. IMPRESSION: 1. No acute findings within abdomen or pelvis. 2. Additional findings as above. Reviewed, dictated and finalized at location [facility]
[2025-10-09 20:57] VITALS: BP 133/67; PULSE 82; RESP 18; TEMP 36.8; O2SAT 97
--- NOTE | 2025-10-09 22:21 | ED_ITS ---
HPI - General Adult General Chief complaint: Nausea/Vomiting/Diarrhea Stated complaint: nausea/not eating Time Seen by Provider: 10/09/25 22:01 History of Present Illness HPI narrative: 74-year-old female presented to the emergency department for evaluation for epigastric abdominal pain. Patient reports symptoms have been bothering her for the last few days. Patient does report associated nausea vomiting and dry heaves. Patient states she does have prior history of cholecystectomy prior history pancreatitis. Patient states she was just here few months ago and diagnosed with pancreatitis. Related Data Home Medications ?Medication ?Instructions ?Recorded ?Confirmed ?Last Taken ?Type calcium carbonate (Antacid Calcium) 215 mg PO TID 09/0107/18/25 06/20/25 History hydrocodone 10 mg-acetaminophen 1 tablet PO Q6H PRN Pa in, Moderate 11/14/21 07/18/25 06/21/25 History 325 mg tablet furosemide 40 mg tablet 40 mg PO DAILY 06/15/2507/0206/20/25 History ropinirole 0.25 mg tablet 0.25 mg PO QHS 06/27/2507/02 Unknown History Allergies Allergy/AdvReac Type Severity Reaction Status Date / Time No Known Allergies Allergy Verified 10/09/25 20:31 Review of Systems 2 Review of Systems: All systems reviewed & are unremarkable except as noted in HPI and below PMFSH Past Medical History Medical History Epigastric pain Body mass index (bmi) 32.0-32.9, adult (10/07/16) 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, right, degenerative Hypoglycemia Lumbar degenerative disc disease Encounter for screening colonoscopy Abdominal cramping Family history of malignant neoplasm of colon in mother Depression Chronic back pain Tobacco abuse Screening for osteoporosis Anxiety Carpal tunnel syndrome of left wrist Cataract of both eyes Depression Essential (primary) hypertension Gastroesophageal reflux disease Peripheral polyneuropathy Primary osteoarthritis of both knees Restless legs syndrome Vitamin B 12 deficiency Surgical History Surgical History Hx of gastric bypass Gastric bypass status for obesity History of bariatric surgery History of bariatric surgery Family History Family History Sibling Cerebrovascular accident Patient's brother is Acute myocardial infarction Mother Carcinoma of colon Patient's mother is Father Family history of lung cancer Patient's father is Other Depression Family history of arthritis Family history of malignant neoplasm Hypertension Social History Social History Smoking packs per day: 2 Smoking cigarettes per day: 40.0 Years smoked: 50 Smoking pack-years: 100.00 Smoking status: Current every day smoker Second hand tobacco smoke exposure: Yes Alcohol intake: never Substance use: former Substance use type: marijuana Lack of Transportation: No Lack of Food: Never True Current Housing: I Have Housing Concerned About Future Housing: No Difficulty Paying Gas/Electric Bills: No Difficulty Paying for Meds: No Currently Unemployed: No Education: High School Diploma/GED Difficulty w/ Childcare or Family Care: No Living arrangements: with family Occupation/Education: retired Gender identity (if verbalized by the patient): Female Spiritual care concerns: No Exam 2 Narrative: APPEARANCE: Well appearing, no pain, no distress, well-nourished. HEAD: normocephalic, atraumatic. EYES: PERRLA/EOMI, conjunctivae clear. NOSE: Normal no drainage EARS:TMS clear with good light reflex. THROAT: Pharynx clear, no exudate. NECK: Supple. No adenopathy, no masses. RESPIRATORY: Airway patent, respirations nonlabored. Clear to auscultation bilaterally, no rales, rhonchi, wheezing. CARDIOVASCULAR: Regular rate and rhythm without murmurs rubs or gallops. ABDOMINAL: Epigastric tenderness to palpation MUSCULOSKELETAL: Moves all extremities. Strength/ROM intact, No edema, No calf tenderness. NEURO: Alert. Cranial nerves II through XII intact. Good gait. Good coordination SKIN: Warm, dry. Normal Color Course Vital Signs Vital signs: Vital Signs Temperature 98.2 F 10/09/25 20:57 Pulse Rate 82 10/09/25 20:57 Respiratory Rate 18 10/09/25 20:57 Blood Pressure 133/67 10/09/25 20:57 Pulse Oximetry 97 10/09/25 20:57 Oxygen Delivery Room Air 10/09/25 20:57 Temperature 98.2 F 10/09/25 20:57 Pulse Rate 74 10/10/25 00:34 Respiratory Rate 16 10/10/25 00:34 Blood Pressure 141/75 H 10/10/25 00:34 Pulse Oximetry 96 10/10/25 00:34 Oxygen Delivery Room Air 10/09/25 20:57 MDM MDM Narrative Medical decision making narrative: 74-year-old female presents emergency department for evaluation for epigastric abdominal pain. Patient is currently afebrile no leukocytosis stable hemoglobin of 13.6. No acute abnormalities on her CMP P. Lipase was negative. UA is negative for infection but was positive for ketones. Patient was treated with Zofran and IV fluids, L lactated Ringer's. Patient is also treated with 2 mg of IV morphine. On re-evaluation patient reports he does feel improved. Low concern for pancreatitis, colitis, diverticulitis,. Patient was advised to follow a clear liquid diet for the next few days. Patient will be provided Zofran for nausea control. Patient family are comfortable plan for discharge and close follow-up. Patient does have follow-up scheduled with GI. Patient was advised to take her omeprazole as scheduled for the next 14 days. Differential Diagnosis Differential Diagnosis: Colitis, diverticulitis, gastritis, esophagitis, pancreatitis Lab Data 10/09/25 22:25 10/09/25 22:25 Labs: Lab Results 10/09/25 10/09/25 Range/Units 22:24 22:25 WBC 6.9 (4.5-10.0) K/mm3 RBC 3.82 L (4.2-5.4) M/mm3 Hgb 13.6 (12.0-15.0) g/dL Hct 40.7 (37.0-47.0) % MCV 106.5 H (80-100) fl MCH 35.6 H (26-34) pg MCHC 33.4 (32-36) g/dl RDW 12.5 (11.5-14.5) % Plt Count 148 L (150-375) k/mm3 MPV 10.9 H (7.4-10.4) fl Immature Gran % (Auto) 0.7 H (0-0.5) % Neut % (Auto) 71.4 (45.5-73.1) % Lymph % (Auto) 17.9 L (18.3-44.2) % [place] % (Auto) 8.9 H (2.6-8.5) % Eos % (Auto) 0.4 (0-4.4) % Baso % (Auto) 0.7 (0.2-1.2) % Lymph # (Auto) 1.23 (0.9-3.2) K/mm3 [place] # (Auto) 0.6 (0.1-0.6) K/mm3 Eos # (Auto) 0.0 (0-0.3) K/mm3 Baso # (Auto) 0.1 (0.0-0.1) K/mm3 Abs Immat Gran (auto) 0.05 H (0.00-0.031) K/mm3 Absolute Neuts (auto) 4.9 (1.3-6.7) K/mm3 Absolute Nucleated RBC 0.000 (0.0-0.012) K/mm3 Nucleated RBC % 0.0 (0.0-0.2) % Sodium 134 L (137-145) mmol/L Potassium 3.6 (3.4-5.0) mmol/L Chloride 108 H (98-107) mmol/L Carbon Dioxide 19 L (22-30) mmol/L Anion Gap 7 (4-12) mmol/L BUN 10 (7-17) mg/dL Creatinine 0.62 L (0.7-1.0) mg/dL Estim Creat Clear Calc Not Reportable Estimated GFR > 60 (59 - ) Glucose 66 (65-110) mg/dL Lactic Acid 0.8 (0.7-2.0) mmol/L Calcium 8.6 (8.4-10.2) mg/dL Total Bilirubin 1.2 (0.2-1.3) mg/dL AST 41 H (14-36) U/L ALT 20 (6-35) U/L Alkaline Phosphatase 117 (38-126) U/L Total Protein 5.8 L (6.3-8.2) g/dL Albumin 3.5 (3.5-5.1) g/dL Lipase 202 (23-300) U/L Urine Color Yellow (Yellow) Urine Appearance Clear (Clear) Urine pH 5.0 (5.0-9.0) Ur Specific [place] 1.008 (1.001-1.035) Urine Protein Negative (Negative) mg/dL Urine Glucose (UA) Negative (Negative) mg/dL Urine Ketones 3+ H (Negative) mg/dL Ur Blood (Man) Negative (Negative) Urine Nitrate Negative (Negative) Urine Bilirubin Negative (Negative) Urine Urobilinogen 0.2 (<2.0) mg/dL Leukocyte Esterase Rfl Negative (Negative) JONO/UL Imaging Data Radiologist's impression: Overnight read CT abdomen pelvis with contrast impression: No acute intra-abdominal abnormality. No bowel obstruction or inflammation. Vinayak-en-Y gastric bypass. No hydronephrosis or renal calculus. Hepatic steatosis hepatomegaly. Cholecystectomy. Small bilateral pleural effusions with adjacent atelectasis. Discharge Plan Discharge Clinical Impression: N&V (nausea and vomiting), Abdominal pain Patient Disposition: Home Condition: Stable Instructions: Antibiotic Form, Clear Liquid Diet (ED), Diet for Stomach Ulcers and Gastritis (ED), Acute Nausea and Vomiting (ED) Additional Instructions: Clear liquid diet for the next 1-3 days. Zofran as needed for nausea control. Omeprazole as directed to help decrease your stomach acid for the next 14 days. Maalox as needed to help with acute upper abdominal pain. Continue to have close outpatient follow-up with GI. If you have any worsening symptoms please call or return to the emergency department. Patient Language: [place] Prescriptions: New omeprazole 20 mg capsule,delayed release(DR/EC) 20 mg PO DAILY 14 Days Qty: 14 0RF ondansetron 4 mg tablet,disintegrating 4 mg PO Q8H PRN (Reason: nausea and vomiting) Qty: 14 0RF No Action Antacid Calcium 215 mg calcium (500 mg) tablet,chewable 215 mg PO TID furosemide 40 mg tablet 40 mg PO DAILY potassium chloride 20 mEq/15 mL liquid 20 meq PO DAILY Qty: 1200 0RF magnesium citrate 100 mg capsule 200 mg PO QHS Qty: 120 0RF hydrocodone-acetaminophen 10-325 mg Tablet 1 tablet PO Q6H PRN (Reason: Pain, Moderate) omeprazole 40 mg capsule,delayed release(DR/EC) See Rx Instructions .ROUTE .COMPLEX Qty: 90 1RF Dose Instruction: TAKE 1 CAPSULE EVERY DAY Rx Instructions: TAKE 1 CAPSULE EVERY DAY metoprolol succinate 25 mg tablet extended release 24 hr See Rx Instructions .ROUTE .COMPLEX Qty: 90 2RF Dose Instruction: TAKE 1 TABLET BY MOUTH EVERY DAY Rx Instructions: TAKE 1 TABLET BY MOUTH EVERY DAY (DME) blood-glucose meter [[employer]acle[employer] Verio Flex meter] [facility] [place] See Rx Instructions .ROUTE .COMPLEX Qty: 1 0RF Dose Instruction: CHECK BLOOD GLUCOSE 1 TIME PER DAY DIRECTED Rx Instructions: CHECK BLOOD GLUCOSE 1 TIME PER DAY DIRECTED ondansetron 8 mg tablet,disintegrating 8 mg PO Q6H PRN (Reason: nausea and vomiting) Qty: 30 0RF ropinirole 0.25 mg tablet 0.25 mg PO QHS furosemide [Lasix] 20 mg tablet 20 mg PO QPM Qty: 90 1RF pregabalin 300 mg capsule 300 mg PO QHS Qty: 30 0RF pregabalin 150 mg capsule 150 mg PO BID Qty: 60 0RF Rx Instructions: morning & afternoon alprazolam 1 mg tablet 1 mg PO TID PRN (Reason: anxiety) Qty: 90 0RF Follow-up/Referrals: Leni Abreu APRN [Primary Care Provider, Internal Medicine]
[2025-10-09 22:22] VITALS: BP 133/63; PULSE 72; RESP 15; O2SAT 98
[2025-10-09] MEDS: ONDANSETRON INJ 4 MG/2 ML VIAL IV PUSH (22:26)
[2025-10-09] MEDS: LACTATED RINGERS 1,000 ML 999 ML IV CONT (22:26)
[2025-10-09] MEDS: MORPHINE SULFATE (*CRX) 4 MG/ML INJ 2 MG IV PUSH (22:28)
[2025-10-09 22:33] LABS: Hematocrit 40.7 % (37.0-47.0); Hemoglobin 13.6 g/dL (12.0-15.0); Immature Granulocyte Percent A 0.7 % (0-0.5); Lymphocytes Absolute Auto 1.23 K/mm3 (0.9-3.2); Mean Corpuscular HGB Conc 33.4 g/dl (32-36); Mean Corpuscular Hemoglobin 35.6 pg (26-34); Mean Corpuscular Volume 106.5 fl (80-100); Nucleated Red Blood Cells Absolute Auto 0.000 K/mm3 (0.0-0.012); Nucleated Red Blood Cells Perc 0.0 % (0.0-0.2); Platelet Count Result 148 k/mm3 (150-375); Red Blood Count 3.82 M/mm3 (4.2-5.4); White Blood Count 6.9 K/mm3 (4.5-10.0)
[2025-10-09 22:34] LABS: Add Urine Microscopic? NO; Appearance Urine Clear (Clear); Glucose Urine UA Negative (Negative); Leukocyte Esterase Ur Negative LEU/UL (Negative); Nitrate Urine Negative (Negative); Specific Grav Ur 1.008 (1.001-1.035)
[2025-10-09 22:45] LABS: Alanine Aminotransferase 20 U/L (6-35); Albumin Level 3.5 g/dL (3.5-5.1); Alkaline Phosphatase 117 U/L (38-126); Anion Gap 7 mmol/L (4-12); Aspartate Amino Transferase 41 U/L (14-36); Bilirubin,Total 1.2 mg/dL (0.2-1.3); Blood Urea Nitrogen 10 mg/dL (7-17); Calcium 8.6 mg/dL (8.4-10.2); Carbon Dioxide 19 mmol/L (22-30); Chloride 108 mmol/L (98-107); Estimated Glomerular Filt Rate > 60; Glucose 66 mg/dL (65-110); Lipase 202 U/L (23-300); Potassium 3.6 mmol/L (3.4-5.0); Sodium 134 mmol/L (137-145); Total Protein 5.8 g/dL (6.3-8.2)
[2025-10-10 00:06] VITALS: BP 141/75; PULSE 74; RESP 16; O2SAT 96
[2025-10-10 00:34] VITALS: BP 141/75; PULSE 74; RESP 16; O2SAT 96
== END 2025-10-10 00:37 | disposition home or self-care (01) ==
PROVIDERS: Emergency Provider Emergency Medicine; PCP Nurse Practitioner Family
DX: R10.13 Epigastric pain (principal); R11.2 Nausea with vomiting, unspecified; I10 Essential (primary) hypertension; E53.8 Deficiency of other specified B group vitamins; K21.9 Gastro-esophageal reflux disease without esophagitis; G25.81 Restless legs syndrome; M17.0 Bilateral primary osteoarthritis of knee; M19.031 Primary osteoarthritis, right wrist; F41.9 Anxiety disorder, unspecified; F32.A Depression, unspecified; F17.210 Nicotine dependence, cigarettes, uncomplicated; Z98.84 Bariatric surgery status; Z79.899 Other long term (current) drug therapy
CPT/HCPCS: 36415; 74177; 80053; 81003; 83605; 83690; 85025; 96361; 96374; 96375; 99284; J2270; J2405; J7120; Q9967

== ENCOUNTER 2025-10-12 10:54 | Outpatient (CLI) | payer MEDICARE, SELFPAY ==
[2025-10-12 12:48] LABS: Influenza A QL RT-PCR Negative (Negative); Influenza B QL RT-PCR Negative (Negative); RSV RNA, RT-PCR Negative (Negative); SARS-CoV-2 RNA PCR Negative (Negative)
== END 2025-10-12 10:55 | disposition home or self-care (01) ==
LOC: ANHLAB 10:57
PROVIDERS: PCP Nurse Practitioner Family; Visit Provider Nurse Practitioner Family
DX: R43.9 Unspecified disturbances of smell and taste (principal); R43.2 Parageusia; Z20.822 Contact with and (suspected) exposure to COVID-19
CPT/HCPCS: 87637